=== PATIENT | male | born 1970 | race Caucasian/White ===

== ENCOUNTER 2017-08-05 23:39 | Inpatient (IN) | payer OTHER ==
[~2017-08-05] VITALS: Ht 180.3 cm; Wt 110.7 kg
[~2017-08-05 23:39] MED LIST: ADVAIR 100-501 EACH INH; ASPIR 8181 MG PO; CARDIZEM; CARDIZEM CD180 MG PO; CEFUROXIME500 MG PO; CLEOCIN HCL150 MG PO; LASIX 40 MG TAB40 M1 PO; LEVAQUIN 750 M750 MG PO; LISINOPRIL10 MG PO; LORTAB 5 MG/5001 TA1 PO; NORCO 5-325 TA1 EACH PO; PACERONE 200 M200 MG NG; PAXIL30 MG; PLAVIX 75 MG TA75 M1 PO; PREDNISONE10 MG PO; TOPROL XL50 MG PO; VENTOLIN HFA 1818 GM INH; XARELTO20 MG PO
[2017-08-05 23:44] VITALS: BP 116/81
[2017-08-06] VITALS (14 sets, daily range): BP systolic 96–138; BP diastolic 61–92
[2017-08-06 00:33] LABS: ABSOLUTE BASOPHILS 0.1 thou/uL (0.0-0.2); ABSOLUTE EOSINOPHILS 0.1 thou/uL (0.0-0.7); ABSOLUTE LYMPHOCYTES 2.6 thou/uL (0.8-5.3); ABSOLUTE MONOCYTES 1.1 thou/uL (0.0-1.2); ABSOLUTE NEUTROPHILS 9.2 thou/uL (1.6-8.1); BASOPHILS 0.9 %; EOSINOPHILS 0.8 %; HEMATOCRIT 39.2 % (42.0-52.0); HEMOGLOBIN 12.7 gm/dL (14.0-18.0); LYMPHOCYTES 19.8 %; MCH 28.2 pg (26.0-34.0); MCHC 32.4 g/dL (28.0-37.0); MCV 86.9 fL (80.0-100.0); MONOCYTES 8.6 %; NUCLEATED RBCS 0 /100WBC; PLATELET COUNT* 332 thou/uL (150-400); POLYS 69.9 %; RDW-CV 15.6 % (10.5-14.5); WBC 13.1 thou/uL (4.0-11.0)
[2017-08-06 00:47] LABS: ALBUMIN 3.1 g/dL (3.4-5.0); ALKALINE PHOSPHATASE 75 U/L (46-116); ANION GAP 10 mmol/L (7-16); BUN 35 mg/dL (7-18); CALCIUM 8.6 mg/dL (8.5-10.1); CHLORIDE 100 mmol/L (98-107); CO2 26 mmol/L (21-32); GLUCOSE 153 mg/dL (70-99); NT-PRO BRAIN NAT PEPTIDE 2238 pg/mL (<300); POTASSIUM 4.4 mmol/L (3.5-5.1); SGOT 31 U/L (15-37); SGPT 40 U/L (30-65); SODIUM 136 mmol/L (136-145); TOTAL BILIRUBIN 0.4 mg/dL (<0.1-1.0); TOTAL PROTEIN 7.3 g/dL (6.4-8.2); TROPONIN-I LEVEL <0.06 ng/mL (<0.06)
[2017-08-06 02:15] LABS: BE -0.3 mmol/L (-2 to +3); HCO3 24.1 mmol/L (22.0-26.0); PCO2 38.8 mmHg (35.0-45.0); PO2 79.7 mmHg (75.0-100.0); pH 7.411 (7.340-7.450)
--- NOTE | 2017-08-06 07:05 | NUR ---
Pt arrived from ED at 0340. Pt states he is feeling better than when he came in. VSS, on 2L O2. Later in shift, pt's HR up to 130's. Rhythm is atrial flutter. Pt has been sleeping, awakens to verbal stimuli. Answers questions appropriately and follows commands. HR 90s-100s, then up to 130s. VSS with elevated HR. Will continue to monitor.
--- NOTE | 2017-08-06 13:37 | EKG ---
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
--- NOTE | 2017-08-06 15:22 | CON ---
[address] [address] CONSULTATION Name: FRANCISCO LERNER Room: [address] IN .R.#: [id number] Admission: 08/06/17 Attend Phys: Ramona Gao Discharge: Date of : 68 Report #: [id number] THIS REPORT FOR: //name// CC: YARI physician/PCP Tenzin Urrutia DATE OF SERVICE: 08/06/2017 CHIEF COMPLAINT: Shortness of breath, atrial flutter. HISTORY OF PRESENT ILLNESS: The patient is a 47-year-old man with a history of known atrial arrhythmias, but had been out of his medications including anticoagulation and amiodarone. He presented with acute diastolic heart failure, pneumonia and atrial flutter with heart rates in the 120s. On IV Cardizem, his heart rate slows down, but he is still in atrial flutter. He had been feeling poorly for some time now several days. He denies neuro symptoms, slurred speech, numbness or weakness. He has not been really having any fevers or chills. He has no chest pain symptoms. His ECG did not show any acute ST segment abnormalities. His home medications that he had been taking included metoprolol XL 50 mg daily, Lasix 40 mg daily, baby aspirin, and albuterol. He had been off of amiodarone and Xarelto because of cost. PAST SURGICAL HISTORY: Includes back surgery and appendix surgery. SOCIAL HISTORY: He is a current smoker and he does drink 30 beers, he usually drinks a 6-pack per week. REVIEW OF SYSTEMS: GENERAL: No fevers. Positive chills. CARDIOVASCULAR: No chest pain. No palpitations. RESPIRATORY: Positive shortness of breath. Positive cough. GASTROINTESTINAL: No abdominal pain, nausea, vomiting, hematemesis, or melena. GENITOURINARY: No dysuria or hematuria. SKIN: No bruising. HEMATOLOGIC: No anemia or bleeding disorders. ENDOCRINE: He is not known to be a diabetic. PHYSICAL EXAMINATION: VITAL SIGNS: Blood pressure is 132/88, pulse is 120. GENERAL: The patient is alert, in no apparent distress. HEENT: Eyes, EOMs are intact. No facial asymmetry. NECK: Supple. No jug[place] [address] CONSULTATION Name: FRANCISCO LERNER [place] Room: [address]#: [id number] Admission: 08/06/17 Attend Phys: Ramona Gao Discharge: Date of : 68 Report #: [id number] CARDIOVASCULAR: Irregular. LUNGS: Diminished breath sounds bilaterally. ABDOMEN: Nontender. EXTREMITIES: There is no peripheral edema. SKIN: Warm and dry. PSYCHIATRIC: The patient has appropriate mood and affect. Electrocardiogram demonstrates atrial flutter with nonspecific ST-segment changes. LABORATORY DATA: Hemoglobin level is 12.7, white blood cell count is 13.1, and platelet count is 332,000. Sodium is 136, potassium is 4.4, chloride is 100, CO2 is 26, BUN 35, and creatinine is 2.0. Troponin I is 0.06. NT-proBNP is 2238. LDL is 122. IMPRESSION: 1. Respiratory insufficiency. This is likely a combination of diastolic heart failure and pneumonia. 2. Acute diastolic congestive heart failure. Continue with Lasix. 3. Atrial flutter. I am doubtful that he will convert to a sinus rhythm. He had been on amiodarone and on IV Cardizem, his heart rate is well controlled, but still remains in atrial flutter, so I recommended further evaluation with a transesophageal echocardiogram and cardioversion. Long-term, I would not want to use amiodarone in this particular patient. I would like to check a stress test and use flecainide or propafenone. 4. Tobacco abuse. Cessation is recommended. 5. Hypertension as above, this should be controlled with beta blockers. <ELECTRONICALLY SIGNED> By: Mani Fregoso MD, [facility] 08/06/17 1522 1000 [id number] Fregoso MD, [facility] /nt
--- NOTE | 2017-08-06 16:32 | TEE ---
[place] [address] TRANSESOPHAGEAL ECHOCARDIOGRAM Name: QUINSAJIJESSICAFRANCISCO L Room: [address] IN [facility]#: [id number] Admission: 08/06/17 Attend Phys: Tenzin Urrutia Discharge: Date of : 68 Date of Service: 08/06/17 1632 Report #: [id number] THIS REPORT FOR: //name// APPROVED REPORT Study performed: 08/06/2017 14:27:54 EXAM: Transesophageal Echocardiogram Patient Location: In-Patient Room #: [facility] Status: routine BSA: 2.38 HR: 134 bpm BP: 132/90 mmHg Rhythm: 3 Other Information Study Quality: Good Indications Atrial Fibrillation Procedure After obtaining informed consent, patient underwent transesophageal echo in the Bedside. Type of Sedation : General Anesthesia Sedation was administered by Yasmin Arellano. Sedation start time: 1430 Case end Time: 1436 Sedation was achieved intravenously with: Propofol () Transesophageal probe was inserted and advanced into esophagus without difficulty by Mani Fregoso MD, FACC. The JOSE was performed without complications. Synchronized Cardioversion acheived with 200 Joules after 1 attempt(s). Rhythm following Synchronized Cardioversion: Normal Sinus Rhythm Throughout the procedure, the blood pressure, pulse oximetry, cardiac rhythm, and rate were monitored. The patient tolerated the procedure without adverse effects. Recovery from conscious sedation was uneventful and vital signs were stable. Left Ventricle Left ventricle is mildly dilated. There is global hypokinesis of the left ventricle. There is normal left [place] [address] TRANSESOPHAGEAL ECHOCARDIOGRAM Name: FRANCISCO LERNER Room: [address]#: [id number] Admission: 08/06/17 Attend Phys: Tenzin Urrutia Discharge: Date of : 68 Date of Service: 08/06/17 1632 Report #: [id number] There is no ventricular septal defect visualized. Left ventricular systolic function is severely decreased. No left ventricle thrombus noted on this study. LVEF is 35-40% Right Ventricle Right ventricle is not well visualized. Atria Left atrium is dilated. No thrombus is visualized in the left atrium or appendage. The interatrial septum is intact with no evidence for an atrial septal defect. Right atrium is not well visualized. Aortic Valve The aortic valve is normal in structure. No aortic regurgitation is present. There is no aortic valvular stenosis. Mitral Valve The mitral valve is normal in structure. Mild mitral regurgitation. Tricuspid Valve Tricuspid valve is not well visualized. There is no tricuspid valve regurgitation noted. Pulmonic Valve Pulmonic valve is not well visualized. There is no pulmonic valvular regurgitation. Great Vessels Aortic root is not well visualized. Pericardium There is no pericardial effusion. <Conclusion> LVEF is 35-40% There is global hypokinesis of the left ventricle. Left atrium is dilated. No thrombus is visualized in the left atrium or appendage. <ELECTRONICALLY SIGNED> By: Mani Fregoso MD, FACC 08/06/17 [phone] Mani Fregoso MD, FACC /INF
[2017-08-06 17:12] LABS: GLYCOHEMOGLOBIN (HGB A1C) 6.5 % (4.8-5.6)
--- NOTE | 2017-08-06 19:07 | NUR ---
ASSUMED CARE OF PT AT 0730. PT CONTINUES TO BE A&o X4 CALM AND COOPERATIVE. PT VSS AND HAS BEEN TRACING A FIB ON THE MONITOR. PT HAS BEEN UP TO THE BATHROOM WITH STANDBY ASSISTANCE TODAY. O2 AT 2L VIA NC WITH SATS IN THE MID S. PT WENT TO THE [facility] [employer] TODAY FOR A JOSE AND CARDIOVERSION. PT HAS BEEN TRACING SR SINCE. PT CURRENTLY RESTING IN BED WITH HOB ELEVATED AND WATCHING TV.
[2017-08-07] VITALS (7 sets, daily range): BP systolic 102–154; BP diastolic 48–88
--- NOTE | 2017-08-07 03:41 | NUR ---
Pt sleeping much of shift, difficult to arouse at times. However, at 2310 pt walked out to nurses' station and asked about being discharged, stating he was "ready to go." Explained to patient that his physicians have not yet cleared him for discharge. Pt seemed to be confused as to time of day. Girlfriend stayed in pt's room on roll-away bed. VSS, and pt remains in SR since his cardioversion. Will continue to monitor.
[2017-08-07 05:20] LABS: HEMATOCRIT 39.4 % (42.0-52.0); MCH 28.2 pg (26.0-34.0); MCHC 32.9 g/dL (28.0-37.0); MCV 85.9 fL (80.0-100.0); MPV 8.9 fl. (7.2-11.1); RBC 4.59 mil/uL (4.50-6.00); RDW-CV 15.6 % (10.5-14.5); WBC 13.7 thou/uL (4.0-11.0)
[2017-08-07 06:19] LABS: CALCIUM 9.3 mg/dL (8.5-10.1); CREATININE 1.5 mg/dL (0.6-1.3); MAGNESIUM 2.2 mg/dL (1.8-2.4)
--- NOTE | 2017-08-07 11:10 | NUR ---
ASSUMED PT CARE AT 0730, FULL ASSESMENT DONE CHARTED. PT A/O X4, APPEARS FIDGETY AT TIMES. PTS O2 SAT 94% ON RA WHILE AWAKE BUT6 DROPPED TO 88% WHILE SLEEPING. PT PLACED BACK ON 2L O2 AND RECIEVED ORDER FOR OVERNIGHT PULSE OX STUDY. ALL OTHER VSS, SR ON THE MONITOR. LUNGS DIMINISHED. DENIES PAIN. FALL PRECAUTIONS IN PLACE, CALL LIGHT IN REACH, UP AD CRYSTAL IN ROOM. WILL CONTINUE WITH PLAN OF CARE.
--- NOTE | 2017-08-07 16:37 | NUR ---
CM SPOKE TO THE PATIENT TO DISCUSS HOME SITUATION, DISCHARGE PLANNING, AND TO INFORM OF THE ROLE OF CM. PATIENT ALERT, ORIENTED AND INDEPENDENT WITH ADL'S. PATIENT RESIDES AT HOME WITH PARENTS. 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 PATIENT USES 0 DME. PATIENT STATES THAT HE HAS NO INSURANCE OF PCP AND REQUEST ASSISTANCE WITH MEDICAID DES. CM INFORMED THE PATIENT ABOUT [facility] AND SENT A REFERRAL TO [facility]. CM ALSO PROVIDED THE PATIENT WITH A COMMUNITY RESOURCE LIST AND PRESCRIPTION ASSISTANCE CARD. CM WILL REMAIN AVAILABLE TO [facility] AND FOLLOW NEEDED.
[2017-08-08] VITALS: BP 121/70
--- NOTE | 2017-08-08 04:51 | NUR ---
ASSUMED CARE OF PT AT 1930, NURSING ASSESSMENT COMPLETED AT START OF SHIFT, PT VOICED NO CONCERNS, PT CONTINUES ON TELE MONITOR TRACING SINUS RHYTHM. HOURLY ROUNDING COMPLETED, PT ON CONTINUOUS PULSE OX THIS HS, HOURLY ROUNDING COMPLETED, CALL LIGHT WITHIN REACH.
[2017-08-08 06:30] VITALS: BP 129/82
[2017-08-08 06:38] LABS: HEMATOCRIT 39.7 % (42.0-52.0); HEMOGLOBIN 12.7 gm/dL (14.0-18.0); MCH 27.7 pg (26.0-34.0); MCHC 32.1 g/dL (28.0-37.0); MCV 86.5 fL (80.0-100.0); NUCLEATED RBCS 0 /100WBC; PLATELET COUNT* 332 thou/uL (150-400); RDW-CV 15.8 % (10.5-14.5); WBC 23.1 thou/uL (4.0-11.0)
[2017-08-08 06:47] LABS: CALCIUM 9.5 mg/dL (8.5-10.1); CREATININE 1.5 mg/dL (0.6-1.3); MAGNESIUM 2.1 mg/dL (1.8-2.4); POTASSIUM 4.5 mmol/L (3.5-5.1)
[2017-08-08 07:01] LABS: ABSOLUTE LYMPHOCYTES 1.2 thou/uL (0.8-5.3); ABSOLUTE MONOCYTES 0.2 thou/uL (0.0-1.2); ABSOLUTE NEUTROPHILS 21.7 thou/uL (1.6-8.1); PLATELET ESTIMATE ADEQUATE
[2017-08-08 08:30] VITALS: BP 144/67
[2017-08-08 12:10] VITALS: BP 120/57
--- NOTE | 2017-08-08 14:20 | CARD ---
[address] [address] CARDIAC CATH REPORT Name: YANNFRANCISCO Bereket Room: [address] IN [facility]#: [id number] Admission: 08/06/17 Attend Phys: Ramona Gao Discharge: Date of : 68 Report #: [id number] THIS REPORT FOR: //name// CC: YARI physician/PCP Tenzin Urrutia DATE OF SERVICE: 08/06/2017 PROCEDURE PERFORMED: Cardioversion. INDICATIONS: Atrial flutter, congestive heart failure. The patient is a 47-year-old man who present with respiratory insufficiency, infiltrates and congestive heart failure and atrial flutter with heart rates in the 130s and 140 beats per minute. This is not a new problem. CONSENT: The risks and benefits were described to patient in lay terms. The patient elects to proceed. Conscious sedation was administered via anesthesia. Please see their record for dosing. Briefly, the JOSE demonstrated no intracardiac thrombus, but moderate LV dysfunction. While the patient was still sedated, the patient was successfully cardioverted with 200 joules, biphasic from atrial flutter to sinus rhythm with heart rate in the 80s. IMPRESSION: 1. Atrial flutter. 2. Acute congestive heart failure. 3. Successful direct current cardioversion. <ELECTRONICALLY SIGNED> By: Mani Fregoso MD, [facility] 08/08/17 1420 1630 2130Mani Fregoso MD, FACC /nt
--- NOTE | 2017-08-08 15:29 | NUR ---
Following through dc. Pt was able to speak with Spring from [facility], Pt is potentially medicaid eligible. Spring faxed CM paperwork for Pt to complete, gave to Pt and will fax back once ready. Following.
[2017-08-08 16:00] VITALS: BP 119/63
--- NOTE | 2017-08-08 16:39 | NUR ---
I have reviewed the documentation by CHHAYA THOMAS from to 08/08/17 and I concur with it. ALPHONSE AGUILLON
--- NOTE | 2017-08-08 19:48 | NUR ---
ASSUMED PT CARE AT 0730, FULL ASSESMENT DONE CHARTED. PT A/O X4, ANXIOUS AT TIMES AND SLEEPS ON AND OFF THROUGH THE SHIFT. PT DENIES PAIN. SR ON THE MONITOR THIS AM, VSS, 2L O2 PRN. PT EDUCATED ON CARB CONTROLLED DIET, THE USE OF INSULIN AND CHECKING BLOOD SUGAR. PT NEEDS MORE EDUCATION IF GOING HOME ON INSULIN. PT UPSET THIS AFTERNOON AFTER ARGUMENT WITH GF. PTS HR ELEVATED IN 130'S, DR BORJA IN TO SEE PT, AWARE OF HR. PT GIVEN MEDS PER AUG, HR STILL ELEVATED, OBTAINED EKG, SHOWING AFLUTTER, CALLED CARDIOLOGY OFFICE AT APPROX 1830, NO CALL BACK RECIEVED, CALLED AGAIN AT APPROX 1940, SPOKE TO DR SHETH, RECIEVED ORDERS FOR CARDIZEM GTT. REPORT AND ORDERS RELAYED TO STEPHANIE LONG .
[2017-08-08 20:30] VITALS: BP 119/83
[2017-08-09 00:02] VITALS: BP 116/73
[2017-08-09 04:00] VITALS: BP 109/70
[2017-08-09 05:17] LABS: HEMATOCRIT 42.5 % (42.0-52.0); HEMOGLOBIN 13.6 gm/dL (14.0-18.0); MCH 27.6 pg (26.0-34.0); MCV 86.4 fL (80.0-100.0); MPV 8.7 fl. (7.2-11.1); RBC 4.92 mil/uL (4.50-6.00); RDW-CV 15.9 % (10.5-14.5); WBC 22.7 thou/uL (4.0-11.0)
[2017-08-09 05:37] LABS: ALBUMIN 2.9 g/dL (3.4-5.0); CALCIUM 8.9 mg/dL (8.5-10.1); CREATININE 1.4 mg/dL (0.6-1.3); POTASSIUM 3.9 mmol/L (3.5-5.1); TOTAL BILIRUBIN 0.2 mg/dL (<0.1-1.0); TOTAL PROTEIN 7.3 g/dL (6.4-8.2)
[2017-08-09 08:23] VITALS: BP 119/69
--- NOTE | 2017-08-09 12:00 | EKG ---
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 Machine Operator: GIULIA : 1970 Requested By: Robert Lerma Order Number: [id number] Cas MD: Robert Lerma Measurements Intervals [place] Rate: 131 P: SD: QRS: -28 QRSD: 91 T: 77 QT: 361 QTc: 533 Interpretive Statements Atrial flutter with predominant 2:1 AV block Borderline left axis deviation Abnormal R-wave progression, late transition Borderline ST depression, diffuse leads Prolonged QT interval Compared to ECG 08/05/2017 23:53:40 2:1 AV block now present Electronically Signed On 08-09-2017 12:00:38 HUMAN RESOURCES CONSULTANT by Robert Lerma [email or web address] <ELECTRONICALLY SIGNED> By: Robert Lerma MD, [facility] 08/09/17 1200 1823 1823 Robert Lerma MD, [facility] /EPI
--- NOTE | 2017-08-09 12:08 | NUR ---
ASSUMED RESPONSIBLITY OF PT THIS AM PT IS ALERT AND ORIENTED BUT VERY DROWSY SOMETIMES FORGETFUL GOES RIGHT BACK TO SLEEP AFTER ASKED A QUESTION PT HAS BEEN TRACKING AFIB/FLUTTER ON THE MONITOR TACHY IN THE 120S-130S CARDIZEM GTT STOPPED AND PO CARDIZEM STARTED AMIODARONE INCREASED WELL NO PLANS TO CARDIOVERT AGAIN PT IS ON 2L NC WHEN RESTING PLAN TO HAVE OUTPATIENT SLEEP STUDY CASE MANAGEMENT WORKING WITH PATIENT PT WITH RFA 20G SL NOW OFF CARDIZEM GTT ATIVAN JUST GIVEN D/T INCREASED ANXIETY ACCORDING TO PT PT DENIES ANY PAIN OR DISCOMFORT UP AD CRYSTAL STEADY CALL LIGHT IN REACH CALLS OUT APPROPRIATELY
--- NOTE | 2017-08-09 12:12 | EKG ---
[place] [address] ELECTROCARDIOGRAM REPORT Name: FRANCISCO LERNER Room: [address] ADM IN .R.#: [id number] Admission: 08/06/17 Attend Phys: Ramona Gao Discharge: Date of : 68 Report #: [id number] THIS REPORT FOR: //name// [facility] Test Date: 2017-08-09 Test Time: 06:18:21 Pat Name: FRANCISCO LERNER Department: Room: [address] Gender: M Associate Manager: JESUS : 1970 Requested By: Robert Lerma Order Number: [id number] Cas MD: Robert Lerma Measurements Intervals [place] Rate: 117 P: [place]: QRS: -24 QRSD: 87 T: 173 QT: 383 QTc: 535 Interpretive Statements Atrial fibrillation Borderline left axis deviation Borderline low voltage, extremity leads Abnormal R-wave progression, late transition Borderline repolarization abnormality Prolonged QT interval Electronically Signed On 08-09-2017 12:11:56 FRUIT THINNER MACHINE OPERATOR by Robert Lerma [email or web address] <ELECTRONICALLY SIGNED> By: Robert Lerma MD, [facility] 08/09/17 1211 7 7 Robert Lerma MD, [facility] /EPI
[2017-08-09 12:28] VITALS: BP 124/61
[2017-08-09 16:14] VITALS: BP 117/91
--- NOTE | 2017-08-09 18:20 | NUR ---
PT SLEPT THROUGHOUT THE DAY VERY DROWSY ASKED FOR ATIVAN X2 HR IS STARTING TO DECREASE BUT STILL A-FIB PT WITH VERY GOOD APPETITE WEARS O2 2L ON AND OFF WHEN RESTING CXR SHOWS IMPROVEMENT PLAN TO DC TOMORROW
[2017-08-09 20:20] VITALS: BP 96/73
[2017-08-10 00:03] VITALS: BP 114/66
[2017-08-10 04:00] VITALS: BP 110/70
--- NOTE | 2017-08-10 05:38 | NUR ---
A&O X4 COOPERITVE. PT REPORTS ANXIETY GIVEN MEDICATION WITH DECREASE ANXIETY NOTED. PT REPORTED INSOMNIA GIVEN MEDICATION WITH IMPROVED SLEEP NOTED. PT DENIES PAIN. PT ON 2L O2 PRN. PT IS STANDBY ASSIST. AFIB ON THE MONITOR. PT HAS X1 EPISODE OF HR >140. POSSIBLE D/C TODAY. VITALS WNL. FALL PRECAUTIONS IN PLACE. HOURLY ROUNDING FOR SAFETY.
[2017-08-10 06:13] LABS: CALCIUM 9.1 mg/dL (8.5-10.1); CREATININE 1.4 mg/dL (0.6-1.3); POTASSIUM 5.3 mmol/L (3.5-5.1)
[2017-08-10 08:00] VITALS: BP 123/77
--- NOTE | 2017-08-10 10:48 | NUR ---
ASSUMED RESPONSIBILITY OF PT THIS PT IS ALERT AND ORIENTED BUT VERY FORGETFUL AND DROWSY TRIES TO WAKE UP A BIT TO DO ASSESSMENT BUT PT GOES RIGHT BACK TO SLEEP PT CONVERTED TO NSR WITH PACS IN THE 70S PT COMPLAINED OF ANXIETY THIS AM RESTING PEACEFULLY IN BED USES O2 2L NC WHEN RESTING LABORED BREATHING NOTED TRACE EDEMA NOTED IN BILAT FEET RFA IV SL AND PATENT ACHS NEEDS INSULIN EVERY MEAL PT WITH VERY GOOD APPETITE EATS 100% EVERY MEAL PT IS UP AD CRYSTAL NO CONCERNS AT THIS TIME PLAN TO DC TODAY
[2017-08-10 12:00] VITALS: BP 116/75
[2017-08-10 16:00] VITALS: BP 121/79
--- NOTE | 2017-08-10 16:39 | EKG ---
[place] [address] ELECTROCARDIOGRAM REPORT Name: FRANCISCO LERNER Room: [address] ADM IN .R.#: [id number] Admission: 08/06/17 Attend Phys: Ramona Gao Discharge: Date of : 68 Report #: [id number] THIS REPORT FOR: //name// [facility] Test Date: 2017-08-10 Test Time: 08:04:23 Pat Name: FRANCISCO LERNER Department: Room: [address] Gender: M Rn Spine: TALHA : 1970 Requested By: Robert Lerma Order Number: [id number] Reading MD: Keven Fontenot Measurements Intervals [place] Rate: 66 P: 31 NC: 135 QRS: -29 QRSD: 93 T: 172 QT: 398 QTc: 417 Interpretive Statements Sinus rhythm Atrial premature complex Probable left atrial enlargement Borderline left axis deviation Probable anteroseptal infarct, old Nonspecific T abnormalities, lateral leads Compared to ECG 08/09/2017 06:18:21 Atrial premature complex(es) now present Myocardial infarct finding now present T-wave abnormality now present Atrial fibrillation no longer present Prolonged QT interval no longer present Electronically Signed On 08-10-2017 16:39:24 HYDRODYNAMICS PROFESSOR by Keven Fontenot [email or web address] <ELECTRONICALLY SIGNED> By: Kaylynn Fontenot MD, [facility] 08/10/17 1639 3 08 Kaylynn Fontenot MD, [facility] /EPI
--- NOTE | 2017-08-10 18:10 | NUR ---
PT IN BED T/O DAY DID GET UP AND AMBULATE AROUND THE FLOOR PT DENIES PAIN BUT DOES COMPLAIN OF ANXIETY AND IRRITABILITY ATIVAN GIVEN THE EVERY 4 HOURS PRN BASICALLY T/O DAY PLAN FOR DC TOMORROW DR RIVERA STARTED ON CELEXA AND CHANGED TO PO MEDS INSTEAD OF IV CALL LIGHT IN REACH UP AD CRYSTAL DID NOT FOLLOW FLUID RESTRICTION TODAY EXPLAINED THE IMPORTANCE OF THIS
[2017-08-10 20:20] VITALS: BP 134/74
[2017-08-11] VITALS: BP 113/60
[2017-08-11 04:13] VITALS: BP 134/77
--- NOTE | 2017-08-11 04:56 | NUR ---
A&O X4 CALM COOPERITVE. PT RESTING MOST OF SHIFT. MED COMPLIANT. 1L O2. NO FLUIDS. NSR ON THE MONITOR. VITALS WNL. HOURLY ROUNDING FOR SAFETY.
[2017-08-11 08:00] VITALS: BP 123/90
--- NOTE | 2017-08-11 10:26 | NUR ---
0733 ASSSUMED CARE OF PATIENT. SEE ASSESSMENT CHARTING. LONG QT INTERVAL. PT [PLAN TO GO HOME
[2017-08-11 12:00] VITALS: BP 102/56
[2017-08-11 12:29] VITALS: BP 112/76
--- NOTE | 2017-08-11 12:43 | EKG ---
[place] [address] ELECTROCARDIOGRAM REPORT Name: FRANCISCO LERNER Room: [address] ADM IN .R.#: [id number] Admission: 08/06/17 Attend Phys: Ramona Gao Discharge: Date of : 68 Report #: [id number] THIS REPORT FOR: //name// [facility] Test Date: 2017-08-11 Test Time: 08:06:12 Pat Name: FRANCISCO KORYJESSICA Department: Room: [address] Gender: M Station Cook: TALHA : 1970 Requested By: Kaylynn Fontenot Order Number: [id number] Reading MD: Keven Fontenot Measurements Intervals [place] Rate: 65 P: 30 FL: 153 QRS: -28 QRSD: 88 T: 18 QT: 561 QTc: 584 Interpretive Statements Sinus rhythm Probable left atrial enlargement Borderline left axis deviation Borderline T abnormalities, inferior leads Prolonged QT interval Compared to ECG 08/10/2017 08:04:23 Prolonged QT interval now present Atrial premature complex(es) no longer present Myocardial infarct finding no longer present T-wave abnormality still present Electronically Signed On 08-11-2017 12:43:04 MOLD BUILDER by Keven Fontenot [email or web address] <ELECTRONICALLY SIGNED> By: Kaylynn Fontenot MD, [facility] 08/11/17 1243 5 08 Kaylynn Fontenot MD, [facility] /EPI
[2017-08-11] MEDS ORDERED: ELIQUIS5 MG PO (13:24)
[2017-08-11] MEDS ORDERED: LEVAQUIN 500 M500 M2 PO (13:24)
--- NOTE | 2017-08-11 14:08 | NUR ---
DR RIVERA TO SEE PATIENT AND PT WILL DISCHARGE. CARDIOLOGY HAS SIGNED OFF. SECURITY NOTIFIED TO BRING VALUABLES
[2017-08-11] MEDS ORDERED: PACERONE 200 M200 M1 PO (14:17)
[2017-08-11] MEDS ORDERED: DUONEB 2.5-0.5 M3 ML INH (14:17)
--- NOTE | 2017-08-11 15:33 | NUR ---
TELE PACK REMOVED. IV DISCONTINUED. PT DISCHARGED AMBULATORY
== END 2017-08-11 15:30 | disposition home or self-care (01) | DRG 871 ==
LOC: M.ERS 23:39 → M.2W 08-06 02:52 → M.TBA-ER 08-06 02:52 → M.2W 08-06 03:54
PROVIDERS: Internal Medicine; Internal Medicine Cardiovascular Disease; Personal Emergency Response Attendant; ADMIT Internal Medicine
PROC: 5A2204Z Restoration of Cardiac Rhythm, Single (ICD-10-PCS; principal; 2017-08-06)
DX: A41.9 Sepsis, unspecified organism (principal); J18.1 Lobar pneumonia, unspecified organism; N17.0 Acute kidney failure with tubular necrosis; I50.43 Acute on chronic combined systolic (congestive) and diastolic (congestive) heart failure; I48.92 Unspecified atrial flutter; J44.1 Chronic obstructive pulmonary disease with (acute) exacerbation; J44.0 Chronic obstructive pulmonary disease with (acute) lower respiratory infection; I13.0 Hypertensive heart and chronic kidney disease with heart failure and stage 1 through stage 4 chronic kidney disease, or unspecified chronic kidney disease; E11.22 Type 2 diabetes mellitus with diabetic chronic kidney disease; F17.210 Nicotine dependence, cigarettes, uncomplicated; Z90.49 Acquired absence of other specified parts of digestive tract; I48.91 Unspecified atrial fibrillation; Z79.899 Other long term (current) drug therapy

== ENCOUNTER 2017-08-28 11:00 | Inpatient (IN) | payer OTHER ==
[~2017-08-28] VITALS: Ht 180.3 cm; Wt 116.0 kg
[~2017-08-28 11:00] MED LIST changes: +DUONEB 2.5-0.5 M3 ML INH; +ELIQUIS5 MG PO; +LEVAQUIN 500 M500 M2 PO; +PACERONE 200 M200 M1 PO
[2017-08-28 11:05] VITALS: BP 129/69
[2017-08-28 11:29] LABS: ABSOLUTE BASOPHILS 0.1 thou/uL (0.0-0.2); ABSOLUTE EOSINOPHILS 0.1 thou/uL (0.0-0.7); ABSOLUTE MONOCYTES 0.8 thou/uL (0.0-1.2); ABSOLUTE NEUTROPHILS 7.9 thou/uL (1.6-8.1); BASOPHILS 1.2 %; HEMATOCRIT 41.7 % (42.0-52.0); HEMOGLOBIN 13.6 gm/dL (14.0-18.0); LYMPHOCYTES 17.9 %; MCH 28.5 pg (26.0-34.0); MCHC 32.7 g/dL (28.0-37.0); MCV 87.2 fL (80.0-100.0); MONOCYTES 7.4 %; MPV 8.8 fl. (7.2-11.1); NUCLEATED RBCS 0 /100WBC; PLATELET COUNT* 301 thou/uL (150-400); POLYS 72.5 %; RBC 4.79 mil/uL (4.50-6.00); RDW-CV 15.8 % (10.5-14.5); WBC 10.9 thou/uL (4.0-11.0)
[2017-08-28 11:33] LABS: ANION GAP 7 mmol/L (7-16); BUN 20 mg/dL (7-18); CALCIUM 8.6 mg/dL (8.5-10.1); CHLORIDE 97 mmol/L (98-107); CO2 30 mmol/L (21-32); CREATININE 1.7 mg/dL (0.6-1.3); GLUCOSE 263 mg/dL (70-99); INR 1.1; POTASSIUM 3.8 mmol/L (3.5-5.1); PROTIME 10.7 Seconds (9.20-11.50); SODIUM 134 mmol/L (136-145)
[2017-08-28 11:43] LABS: ALBUMIN 3.2 g/dL (3.4-5.0); ALKALINE PHOSPHATASE 89 U/L (46-116); LIPASE 113 U/L (73-393); MAGNESIUM 1.7 mg/dL (1.8-2.4); NT-PRO BRAIN NAT PEPTIDE 1016 pg/mL (<300); SGOT 25 U/L (15-37); SGPT 43 U/L (30-65); TOTAL BILIRUBIN 0.4 mg/dL (<0.1-1.0); TOTAL PROTEIN 7.5 g/dL (6.4-8.2); TROPONIN-I LEVEL <0.06 ng/mL (<0.06)
[2017-08-28 15:32] VITALS: BP 117/69
[2017-08-28 15:39] VITALS: BP 122/82
--- NOTE | 2017-08-28 18:23 | NUR ---
PT ADMITTED TO ROOM 230 VIA CART FROM ED AT APPROXIMATELY 1545 WITH ATRIAL FLUTTER WITH SLOW VENTRICULAR RESPONSE AND DYSPNEA. REPORT RECEIVED FROM RAUL ED RN. PT ORIENTED TO ROOM AND CALL LIGHT. ADMISSION ASSESSMENT AND HISTORY COMPLETED. REFER TO CHARTING. SEPSIS SCREENING COMPLETE-SCREENED NEGATIVE. HOME MEDICATIONS RECONCILED. PHARMACY ENTERED. PT A&0X4. PT VERY ANXIOUS AND SHORT OF BREATH. TACHYPNEA NOTED. COARSE CRACKLES AND WHEEZES NOTED. ORDERS RECEIVED FOR PRN ANXIETY MEDICATION TO HELP PT RELAX AND SLOW BREATHING. PT ON 4L NC SAT 96%. PT HAS NON PRODUCTIVE COUGH. PT TRACING AFLUTTER ON THE MANAGER CORPORATE STRATEGY. RATE IN THE 50'S. EDEMA NOTED TO BILATERAL LE'S. PT UP AD CRYSTAL IN ROOM. VOIDS PER URINAL. URINALYSIS SENT DOWN. CARDIOLOGY CONSULT IN PLACE. PT GIVEN 80 MG IVP LASIX. REFER TO EMAR. PT REPOSITIONS SELF. HOURLY ROUNDING OBSERVED. BED IN LOW POSITION. CALL LIGHT WITHIN REACH. WILL CONTINUE PLAN OF CARE.
[2017-08-28 18:27] LABS: AMP/METHAMP POSITIVE (Negative); BARBITURATES Negative (Negative); BENZODIAZEPINES Negative (Negative); COCAINE Negative (Negative); METHADONE Negative (Negative); OPIATES Negative (Negative); PCP Negative (Negative); THC POSITIVE (Negative)
[2017-08-28 20:00] VITALS: BP 140/93
[2017-08-29] VITALS: BP 146/95
--- NOTE | 2017-08-29 03:13 | NUR ---
ASSUMED PT CARE AT 1930, PT IS TRACING AFIB/FLUTTER ON THE MONITOR, WITH OCCASIONAL P WAVES, IT APPEARS PT IS TRYING TO SELF CONVERT TO NSR. PT IS ON 4L NC SATTING MID TO HIGH 90'S. PT NEEDS REMINDING TO KEEP O2 ON AND KEEP BREATHIGN IN THROUGH HIS NOSE. PT'S RESP RATE HAS BEEN ELEVATED THOURGHOUT THE SHIFT, PT REQUESTED A SLEEPING MEDICATION, PRN MEDICATION GIVEN WITH NO RELIEF. BED IN LOW POSITION, CALL LIGHT IN REACH, BED ALARM ON D/T SLEEPING MEDICATION, HOURLY ROUNDING COMPLETED FOR PT SAFETY.
[2017-08-29 04:00] VITALS: BP 112/73
[2017-08-29 08:00] VITALS: BP 118/79
[2017-08-29 10:01] LABS: HEMATOCRIT 37.8 % (42.0-52.0); HEMOGLOBIN 12.4 gm/dL (14.0-18.0); MCH 28.3 pg (26.0-34.0); MCHC 32.8 g/dL (28.0-37.0); MCV 86.1 fL (80.0-100.0); MPV 9.2 fl. (7.2-11.1); RBC 4.39 mil/uL (4.50-6.00); RDW-CV 15.5 % (10.5-14.5); WBC 13.4 thou/uL (4.0-11.0)
[2017-08-29 10:44] LABS: CALCIUM 8.6 mg/dL (8.5-10.1); CREATININE 1.3 mg/dL (0.6-1.3); POTASSIUM 3.8 mmol/L (3.5-5.1)
[2017-08-29 11:36] VITALS: BP 107/68
--- NOTE | 2017-08-29 12:43 | EKG ---
[place] [address] ELECTROCARDIOGRAM REPORT Name: FRANCISCO LERNER Room: [address] ADM IN R.#: [id number] Admission: 08/28/17 Attend Phys: Aguilar Pham Discharge: Date of : 68 Report #: [id number] THIS REPORT FOR: //name// [facility] ED Test Date: 2017-08-28 Test Time: 11:05:18 Pat Name: FRANCISCO LERNER Department: Room: [facility] Gender: M Ambulance Driver: UNKNOWN : 1970 Requested By: Beni Marques Order Number: [id number] MD: Jeremy Carr Measurements Intervals [place] Rate: 55 P: 0 IA: 88 QRS: 60 QRSD: 240 T: -40 QT: 485 QTc: 464 Interpretive Statements Atrial flutter Minimal ST depression, anterolateral leads Compared to ECG 08/11/2017 08:06:12 ST (T wave) deviation now present T-wave abnormality no longer present Prolonged QT interval no longer present Electronically Signed On 08-29-2017 12:43:36 CARTRIDGE GAUGER by Jeremy Carr [email or web address] <ELECTRONICALLY SIGNED> By: Jeremy Carr MD, [facility] 08/29/17 1243 1105 1105 Jeremy Carr MD, [facility] /EPI
--- NOTE | 2017-08-29 15:08 | NUR ---
ATTEMPTED TO SEE PT X3 TODAY, SLEEPING. WILL TRY TOMORROW. PT WAS HERE LAST MONTH, LIVES WITH PARENTS AND HAS APPLIED FOR MEDICAID. DID NOTE +UDS.
[2017-08-29 15:55] VITALS: BP 148/89
[2017-08-29 20:00] VITALS: BP 129/81
[2017-08-30 00:01] VITALS: BP 152/81
[2017-08-30 04:00] VITALS: BP 126/72
--- NOTE | 2017-08-30 04:27 | NUR ---
this nurse assumes care of pt 08/29/17 at 1930, pt is alert, oriented x4, large amount of family members present, pt appears anxious and complains of coughing and spitting up, denies nausea, pt complains of continued SABILLON and abd pain and receives PO pain medication, prior to sleep pt becomes agitated and argumentative with his significant other, pt is heard yelling profanities throughout the unit, security called, visitor leaves and pt then calms down after receiving HS meds, pts respirationsare uneven with snoring noted throughout the night, supplemental o2 via NC at 4L provided, pts lung sounds are diminished with expiratory wheezes ascultated at times, pt continues to have 2+ generalized edema, pt tracing Afib on cardiac monitoring, pt awake at this time asking for soda, educated on limiting fluids, pt is progressing towards goals
[2017-08-30 08:20] VITALS: BP 139/108
--- NOTE | 2017-08-30 10:51 | NUR ---
RECIEVED REPORT FROM [facility] AND ASSUMED CARE OF PT AT 0730. PT A/O X4, BP ELEVATED AT 139/108. TRACING AFIB ON MONITOR. LUNGS DIMINISHED WITH WHEEZES.ON 4L O2 SAT AT 93%. LAST BM 2 DAYS AGO WITH ACTIVE BOWEL SOUNDS.IV SALINE LOCKED. PT DENIES PAIN AT TIME OF ASSESSMENT. UP SBA WITH BRP. GOALS DISCUSSED WITH PT TO BE NPO WHILE WAITING TO BE SEEN BY CARDIOLOGY. PT UNDERSTANDS AND OK WITH PLAN. CALL LIGHT WITH IN REACH. PT RESTING IN BED. SONIA SLADE SAW PT AND DECIDED THAT PT CAN RESUME DIET AND THEY WILL NOT PREFORM CARDIOVERSION.
[2017-08-30 11:40] VITALS: BP 146/110
[2017-08-30 15:11] LABS: AMIODARONE 2.2 ug/mL (1.0-2.5); DESETHYLAMIODARONE 0.7 ug/mL (1.0-2.5)
--- NOTE | 2017-08-30 15:29 | NUR ---
ATTEMPTED X2 TO MEET WITH PT. WAS SOUND ASLEEP. DISCUSSED WITH NURSE, STATED HE HAS BEEN SLEEPING QUITE A BIT TODAY
[2017-08-30 16:10] VITALS: BP 143/77
--- NOTE | 2017-08-30 18:57 | NUR ---
PT HAS BEEN SLEEPING MOST OF SHIFT. WAKING UP FOR MEALS AND TO VISIT WITH FAMILY. PT WAS STARTED ON PO CARDIZEM. PT C/O HEADACHE, CALL PUT OUT TO [facility] TO GET ORDER FOR PAIN MEDICATION.FAMILY HAS SOME QUESTIONS FOR CASE MANAGEMENT FOR IN AM. PT RESTING IN ROOM WITH CALL LIGHT IN REACH. FAMILY AT BEDSIDE VISITING QUIETLY. HOURLY ROUNDING COMPLETED FOR PT SAFETY.
[2017-08-30 20:00] VITALS: BP 115/70
[2017-08-31] VITALS (7 sets, daily range): BP systolic 102–128; BP diastolic 48–71
--- NOTE | 2017-08-31 03:34 | NUR ---
PT SLEEPING THROUGHOUT SHIFT. AROUSES TO VOICE. WAKES UP AND AMBULATES TO BR. TELEMETRY SHOWS AFIB. O2 AT 4 LITERS NC. PT SNORES LOUDLY. WILL CONTINUE TO MONITOR.
[2017-08-31 04:48] LABS: HEMATOCRIT 40.7 % (42.0-52.0); HEMOGLOBIN 13.7 gm/dL (14.0-18.0); MCH 28.5 pg (26.0-34.0); MCHC 33.5 g/dL (28.0-37.0); MCV 84.8 fL (80.0-100.0); MPV 8.8 fl. (7.2-11.1); RBC 4.8 mil/uL (4.50-6.00); RDW-CV 15.2 % (10.5-14.5)
[2017-08-31 05:19] LABS: ALBUMIN 2.7 g/dL (3.4-5.0); CALCIUM 8.7 mg/dL (8.5-10.1); CREATININE 1.2 mg/dL (0.6-1.3); MAGNESIUM 2.1 mg/dL (1.8-2.4); POTASSIUM 3.9 mmol/L (3.5-5.1); TOTAL BILIRUBIN 0.6 mg/dL (<0.1-1.0); TOTAL PROTEIN 6.4 g/dL (6.4-8.2)
--- NOTE | 2017-08-31 07:45 | NUR ---
ASSUMED CARE OF PT ASSESSED AND DOCUMENTED. PT ON CARDIAC MONITER TRACING A-FIB HR 88.VSS WNL. PT IS AFEBRILE. HE CONT ON 4L OF 02 AND HAS NOTED WHEEZING. PT IS A&O WITH NO C/O PAIN. BED IS IN LOW POSITION CALL LIGHT IS IN REACH.WM.
--- NOTE | 2017-08-31 16:52 | NUR ---
PT HAS SLEPT OR WATCHED TV THIS SHIFT. HE HAS SPOKEN ON HIS TELEPHONE AND HAD A FEW VISITORS. EDUCATION GIVEN ON DEMAND. HOURLY ROUNDING COMPLETE.
[2017-09-01] VITALS: BP 115/88
--- NOTE | 2017-09-01 01:00 | NUR ---
PT DROWSEY ORIENTED X 4. TELEMETRT SHOWS AFIB. UP AD CRYSTAL IN ROOM. O2 AT 4 LITERS NC. WILL CONTINUE TO MONITOR.
[2017-09-01 04:27] VITALS: BP 104/51
[2017-09-01 05:13] LABS: HEMATOCRIT 43.2 % (42.0-52.0); HEMOGLOBIN 14.6 gm/dL (14.0-18.0); MCH 28.6 pg (26.0-34.0); MCHC 33.8 g/dL (28.0-37.0); MCV 84.7 fL (80.0-100.0); MPV 8.9 fl. (7.2-11.1); RBC 5.1 mil/uL (4.50-6.00); RDW-CV 15.4 % (10.5-14.5); WBC 8.2 thou/uL (4.0-11.0)
[2017-09-01 05:24] LABS: ALBUMIN 2.6 g/dL (3.4-5.0); CALCIUM 9.1 mg/dL (8.5-10.1); CREATININE 1.3 mg/dL (0.6-1.3); MAGNESIUM 2.3 mg/dL (1.8-2.4); POTASSIUM 3.8 mmol/L (3.5-5.1); TOTAL BILIRUBIN 0.4 mg/dL (<0.1-1.0); TOTAL PROTEIN 7.2 g/dL (6.4-8.2)
[2017-09-01 08:00] VITALS: BP 126/92
[2017-09-01 12:00] VITALS: BP 118/61
[2017-09-01 16:00] VITALS: BP 120/52
[2017-09-01 21:00] VITALS: BP 113/71
[2017-09-02] VITALS: BP 110/46
--- NOTE | 2017-09-02 01:59 | NUR ---
PT A/OX4, RA, A-FLUTTER ON THE MONITOR, NO C/O SOA/PAIN, UP SBA, VSS, MEDS/ASSESSMENT PER CHARTING, FALL PRECAUTIONS IN PLACE WITH BED IN LOW LOCKED POSITION AND CALL LIGHT IN REACH, HOURLY ROUNDING IN PLACE, SON AT BEDSIDE, WILL CONT TO MONITOR.
[2017-09-02 03:50] VITALS: BP 101/44
--- NOTE | 2017-09-02 10:59 | NUR ---
MET WITH PT AND HIS FATHER TO DISCUSS HOME SITUATION/DC PLANNING. PT STATES HE LIVES WITH HIS SON IN [facility] NOW. HE IS INDEPENDENT AND USES NO EQUIPMENT. HE STATES HE HAS FILED FOR MEDICAID AND DISABILITY AND WAITING TO HEAR ON BOTH, NEITHER ARE ACTIVE AT THIS TIME. DISCUSSED POSSIBLE NEED FOR O2 AND WITHOUT INSURANCE COVERAGE, WOULD NEED A CREDIT CARD TO ARRANGE. PT STATED HE 'DIDN'T HAVE ONE.' PT STATES HE HAS BEEN ABLE TO GET HIS SCRIPTS FILLED. GAVE COMMUNITY RESOURCE INFO, FIND A PHYSICIAN AND DISCUSSED F/U AT [facility] OR [facility] [place]. ALSO DRUG ASSIST AND DISABILITY ASSIST.
[2017-09-02 12:00] VITALS: BP 125/85
[2017-09-02] MEDS ORDERED: LANOXIN 0.25M0.25 M1 PO (12:53)
[2017-09-02] MEDS ORDERED: COZAAR 25 MG TA25 M1 PO (12:54)
== END 2017-09-02 16:30 | disposition home or self-care (01) | DRG 291 ==
LOC: M.ERS 11:00 → M.2W 12:23 → M.TBA-ER 12:23 → M.2W 15:46
PROVIDERS: Emergency Medicine Emergency Medical Services; Family Medicine; ADMIT Internal Medicine
DX: I13.0 Hypertensive heart and chronic kidney disease with heart failure and stage 1 through stage 4 chronic kidney disease, or unspecified chronic kidney disease (principal); J96.01 Acute respiratory failure with hypoxia; I50.43 Acute on chronic combined systolic (congestive) and diastolic (congestive) heart failure; I48.92 Unspecified atrial flutter; I48.91 Unspecified atrial fibrillation; N17.9 Acute kidney failure, unspecified; G47.30 Sleep apnea, unspecified; I42.9 Cardiomyopathy, unspecified; N18.3 Chronic kidney disease, stage 3 (moderate); F17.200 Nicotine dependence, unspecified, uncomplicated; F19.10 Other psychoactive substance abuse, uncomplicated; J44.9 Chronic obstructive pulmonary disease, unspecified; Z83.6 Family history of other diseases of the respiratory system; Z79.01 Long term (current) use of anticoagulants; Z79.899 Other long term (current) drug therapy

== ENCOUNTER 2018-01-16 12:49 | Inpatient (IN) | payer OTHER ==
[~2018-01-16] VITALS: Ht 180.3 cm; Wt 74.5 kg
[~2018-01-16 12:49] MED LIST changes: +COZAAR 25 MG TA25 M1 PO; +LANOXIN 0.25M0.25 M1 PO
[2018-01-16 13:01] VITALS: BP 181/111
[2018-01-16 13:25] LABS: ABSOLUTE BASOPHILS 0.1 thou/uL (0.0-0.2); ABSOLUTE EOSINOPHILS 0.2 thou/uL (0.0-0.7); ABSOLUTE LYMPHOCYTES 1.5 thou/uL (0.8-5.3); ABSOLUTE MONOCYTES 0.8 thou/uL (0.0-1.2); ABSOLUTE NEUTROPHILS 7.4 thou/uL (1.6-8.1); BASOPHILS 1.2 %; HEMOGLOBIN 13.9 gm/dL (14.0-18.0); LYMPHOCYTES 14.8 %; MCH 28.4 pg (26.0-34.0); MCV 85.9 fL (80.0-100.0); MONOCYTES 7.6 %; MPV 8.9 fl. (7.2-11.1); NUCLEATED RBCS 0 /100WBC; PLATELET COUNT* 309 thou/uL (150-400); POLYS 74.4 %; RBC 4.89 mil/uL (4.50-6.00); RDW-CV 16.1 % (10.5-14.5)
[2018-01-16 13:38] LABS: ANION GAP 3 mmol/L (7-16); APTT 25.7 Seconds (25.0-31.3); BUN 16 mg/dL (7-18); CALCIUM 8.2 mg/dL (8.5-10.1); CHLORIDE 102 mmol/L (98-107); CO2 30 mmol/L (21-32); CREATININE 1.3 mg/dL (0.6-1.3); GLUCOSE 149 mg/dL (70-99); POTASSIUM 3.6 mmol/L (3.5-5.1); SODIUM 135 mmol/L (136-145)
[2018-01-16 13:39] LABS: BE 4.4 mmol/L (-2 to +3); HCO3 29.3 mmol/L (22.0-26.0); PCO2 44.8 mmHg (35.0-45.0); PO2 65.3 mmHg (75.0-100.0); pH 7.434 (7.340-7.450)
[2018-01-16 13:49] LABS: ALBUMIN 3.1 g/dL (3.4-5.0); ALKALINE PHOSPHATASE 105 U/L (46-116); NT-PRO BRAIN NAT PEPTIDE 726 pg/mL (<300); SGOT 34 U/L (15-37); SGPT 60 U/L (30-65); TOTAL BILIRUBIN 0.3 mg/dL (<0.1-1.0); TOTAL PROTEIN 7.6 g/dL (6.4-8.2); TROPONIN-I LEVEL <0.06 ng/mL (<0.06)
[2018-01-16 16:15] VITALS: BP 125/79
[2018-01-16 16:35] VITALS: BP 140/83
--- NOTE | 2018-01-16 16:42 | 2DMMODE ---
[place] [address] 2 D/M-MODE ECHOCARDIOGRAM Name: FRANCISCO LERNER Room: [address] IN [facility]#: [id number] Admission: 01/16/18 Attend Phys: Tenzin Urrutia Discharge: Date of : 68 Date of Service: 01/16/18 1641 Report #: [id number] THIS REPORT FOR: //name// APPROVED REPORT Study performed: 01/16/2018 15:48:57 EXAM: Comprehensive 2D, Doppler, and color-flow Echocardiogram Patient Location: In-Patient Room #: er Status: routine BSA: 2.34 HR: 87 bpm BP: 181/111 mmHg Rhythm: NSR Other Information Study Quality: Good Indications Cardiomyopathy 2D Dimensions LVEF(%): 35.97 (>50%) IVSd: 13.20 (7-11mm) LVOT Diam: 21.49 (18-24mm) LVDd: 50.57 mm PWd: 11.08 (7-11mm) Ascending Ao: 37.26 (22-36mm) LVDs: 41.81 (25-40mm) Aortic Root: 36.47 mm Ozuna's LVEF: 35.97 % Volumes Left Atrial Volume (Systole) LA ESV Index: 35.30 mL/m2 Aortic Valve AoV Peak Jerzy.: 1.31 m/s AO Peak Gr.: 6.84 mmHg LVOT Max P.74 mmHg AO Mean Gr.: 3.75 mmHg LVOT Mean P.94 mmHg LVOT Max V: 1.20 m/s AO V2 VTI: 23.71 cm LVOT Mean V: 0.78 m/s MAGALY (VTI): 3.11 cm2 LVOT V1 VTI: 20.34 cm Mitral Valve MV Decel. Time: 112.91 [place] [address] 2 D/M-MODE ECHOCARDIOGRAM Name: FRANCISCO LERNER Room: [address] IN ..#: [id number] Admission: 01/16/18 Attend Phys: Tenzin Urrutia Discharge: Date of : 68 Date of Service: 01/16/18 1641 Report #: [id number] MV E Max Jerzy.: 1.09 m/s MV PHT: 32.74 ms MVA (PHT): 6.72 cm2 TDI E/Lateral E': 9.08 E/Medial E': 13.63 Medial E' Jerzy.: 0.08 m/s Lateral E' Jerzy.: 0.12 m/s Pulmonary Valve PV Peak Jerzy.: 0.91 m/s PV Peak Gr.: 3.29 mmHg Left Ventricle The left ventricle is normal size. There is global hypokinesis of the left ventricle. Mild concentric left ventricular hypertrophy. Left ventricular systolic function is mildly decreased. LVEF is 35-40%. This study is not technically sufficient to allow evaluation of the LV diastolic function due to atrial fibrillation. Right Ventricle Right ventricle is dilated. The right ventricular systolic function is normal. Atria Left atrium is borderline dilated. Right atrium is dilated. Aortic Valve The aortic valve is normal in structure. No aortic regurgitation is present. There is no aortic valvular stenosis. Mitral Valve The mitral valve is normal in structure. Trace mitral regurgitation. No evidence of mitral valve stenosis. Tricuspid Valve The tricuspid valve is normal in structure. Unable to assess PA pressure. Trace tricuspid regurgitation. Pulmonic Valve The pulmonary valve is normal in structure. There is no pulmonic valvular regurgitation. Great Vessels The aortic root is normal in size. IVC is normal in size and collapses with >50% [place] [address] 2 D/M-MODE ECHOCARDIOGRAM Name: FRANCISCO LERNER Room: [address] IN [facility].#: [id number] Admission: 01/16/18 Attend Phys: Tenzin Urrutia Discharge: Date of : 68 Date of Service: 01/16/18 1641 Report #: [id number] Pericardium There is no pericardial effusion. <Conclusion> The left ventricle is normal size. Mild concentric left ventricular hypertrophy. LVEF is 35-40%. There is global hypokinesis of the left ventricle. Left atrium is borderline dilated. Right atrium is dilated. No aortic regurgitation is present. There is no aortic valvular stenosis. No evidence of mitral valve stenosis. Trace mitral regurgitation. <ELECTRONICALLY SIGNED> By: Mani Fregoso MD, FACC 01/16/181640 40 40 Mani Fregoso MD, FACC /INF
--- NOTE | 2018-01-16 19:42 | NUR ---
PT ARRIVED TO ROOM 213 AT APPROX 1630. PT ORIENTED TO ROOM AND STAFF. ADMISSION HX AND ASSESMENT DONE CHARTED. PT A/O X4, C/O SABILLON, TYLENOL GIVEN. REVIEWED HOME MEDS WITH PT. VSS, AFLUTTER ON MONITOR. PT UP AD CRYSTAL. REPORT GIVEN TO MARCELA BROWN.
[2018-01-16 23:45] VITALS: BP 157/88
[2018-01-17 04:00] VITALS: BP 118/68
--- NOTE | 2018-01-17 05:19 | NUR ---
AAOX4, RESP REG AND UNLABORED SKIN W/D. TELEMETRY PACK ITNACT WITH ALARMS SET. PT STATES HIS SWELLING HAS ALREADY IMPROVED. PT DENIES PAIN AND SOB AT THIS TIME. VSS AND NO ACUTE CHANGES DURING SHIFT. PT RESTED WELL. WILL CONTINUWE TO MONITOR
[2018-01-17 08:00] VITALS: BP 134/80
--- NOTE | 2018-01-17 10:05 | NUR ---
INITIAL ASSESSMENT: Pt evaluated for d/c planning needs. Reviewed chart. Pt was recently hospitalized in August 2017. Pt was given financial resource information. Pt lives in house with son and was independent with ADL's prior to admission. Pt uses no DME. Pt plans on returning home on d/c from hospital. No d/c needs indicated.
--- NOTE | 2018-01-17 10:46 | EKG ---
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: Quintin ORR : 1970 Requested By: Meir Nye Order Number: [id number] MD: Robert Lerma Measurements Intervals [place] Rate: 88 P: ID: QRS: -49 QRSD: 96 T: 242 QT: 425 QTc: 515 Interpretive Statements Atrial flutter Abnormal R-wave progression, late transition Compared to ECG 08/28/2017 11:05:18 rate increased Electronically Signed On 01-17-2018 10:46:28 CDT by Robert Lerma [email or web address] <ELECTRONICALLY SIGNED> By: Robert Lerma MD, [facility] 01/17/18 1046 1416 1416 Robert Lerma MD, [facility] /EPI
[2018-01-17 11:45] VITALS: BP 140/90
[2018-01-17 15:48] VITALS: BP 135/78
--- NOTE | 2018-01-17 18:16 | NUR ---
SHIFT NOTE - PT UP AD CRYSTAL TODAY. IV SL. POSSIBLE DC TODAY BUT PT REQUEST TO STAY ANOTHER DAY. LASIX CHANGED TO PO. CONTAINER COORDINATOR A FLUTTER CONTROLLED RATE AT 74.
[2018-01-17 19:30] VITALS: BP 124/80
[2018-01-18 00:10] VITALS: BP 134/82
[2018-01-18 03:41] VITALS: BP 117/65
--- NOTE | 2018-01-18 05:25 | NUR ---
AAOX4. RESP REG AND UNLABORED SKIN W/D NO ACUTE DISTRESS NOTED. PT HAD A GOOD NIGHT AND VOICED NO COMPLAINTS. PT STATED HE WAS GOINGHOME TODAY TELEMETRY PACK INTACT WITH ALARMS SET. VSS AND NO ACUTE CHANGES DURING SHIFT. WILL CONTINUE TO MONITOR
[2018-01-18 08:00] VITALS: BP 127/78
[2018-01-18 12:00] VITALS: BP 147/84
== END 2018-01-18 13:55 | disposition home or self-care (01) | DRG 292 ==
LOC: M.ERS 12:49 → M.TBA-ER 14:45 → M.2W 14:45 → M.TBA-ER 15:14 → M.2W 16:29
PROVIDERS: Emergency Medicine; ADMIT Internal Medicine
DX: I11.0 Hypertensive heart disease with heart failure (principal); I48.92 Unspecified atrial flutter; J44.1 Chronic obstructive pulmonary disease with (acute) exacerbation; I50.43 Acute on chronic combined systolic (congestive) and diastolic (congestive) heart failure; I50.20 Unspecified systolic (congestive) heart failure; I42.8 Other cardiomyopathies; I48.91 Unspecified atrial fibrillation; F17.210 Nicotine dependence, cigarettes, uncomplicated; Z91.14 Patient's other noncompliance with medication regimen; Z90.49 Acquired absence of other specified parts of digestive tract; Z79.899 Other long term (current) drug therapy

== ENCOUNTER 2018-02-04 02:36 | Inpatient (IN) | payer OTHER ==
[~2018-02-04] VITALS: Ht 180.3 cm; Wt 127.0 kg
[2018-02-04] VITALS (7 sets, daily range): BP systolic 118–155; BP diastolic 51–92
[2018-02-04 03:08] LABS: ABSOLUTE BASOPHILS 0.1 thou/uL (0.0-0.2); ABSOLUTE EOSINOPHILS 0.1 thou/uL (0.0-0.7); ABSOLUTE LYMPHOCYTES 1.9 thou/uL (0.8-5.3); ABSOLUTE NEUTROPHILS 6.5 thou/uL (1.6-8.1); BASOPHILS 1.4 %; EOSINOPHILS 1.5 %; HEMOGLOBIN 13.4 gm/dL (14.0-18.0); LYMPHOCYTES 19.4 %; MCH 28.6 pg (26.0-34.0); MCHC 32.8 g/dL (28.0-37.0); MCV 87.2 fL (80.0-100.0); MONOCYTES 10.8 %; MPV 8.9 fl. (7.2-11.1); NUCLEATED RBCS 0 /100WBC; PLATELET COUNT* 313 thou/uL (150-400); POLYS 66.9 %; WBC 9.7 thou/uL (4.0-11.0)
[2018-02-04 03:17] LABS: PROTIME 10.1 Seconds (9.20-11.50)
[2018-02-04 03:19] LABS: ANION GAP 3 mmol/L (7-16); BUN 19 mg/dL (7-18); CHLORIDE 104 mmol/L (98-107); CO2 31 mmol/L (21-32); CREATININE 1.5 mg/dL (0.6-1.3); GLUCOSE 216 mg/dL (70-99); POTASSIUM 3.9 mmol/L (3.5-5.1); SODIUM 138 mmol/L (136-145)
[2018-02-04 03:27] LABS: ALBUMIN 2.9 g/dL (3.4-5.0); ALKALINE PHOSPHATASE 101 U/L (46-116); LIPASE 252 U/L (73-393); NT-PRO BRAIN NAT PEPTIDE 284 pg/mL (<300); SGOT 32 U/L (15-37); SGPT 58 U/L (30-65); TOTAL BILIRUBIN 0.3 mg/dL (<0.1-1.0); TOTAL PROTEIN 7.4 g/dL (6.4-8.2); TROPONIN-I LEVEL <0.06 ng/mL (<0.06)
[2018-02-04 03:54] LABS: AMP/METHAMP Negative (Negative); BARBITURATES Negative (Negative); BENZODIAZEPINES Negative (Negative); COCAINE Negative (Negative); METHADONE Negative (Negative); OPIATES Negative (Negative); PCP Negative (Negative); THC Negative (Negative)
--- NOTE | 2018-02-04 07:07 | NUR ---
PT ARRIVED TO ROOM AT 0430 FROM ER. ASSESSMENT COMPLETED CHARTED. PT ABLE TO MAKE NEEDS KNOWN, PT SLEEPING AT THIS TIME. PT IS RED AND LS ARE WHEEZY. NO C/O PAIN. WILL CONTINUE TO MONITOR.
--- NOTE | 2018-02-04 10:41 | NUR ---
ASSUMED CARE OF PT AT 0730. PT RESTING IN BED. PT A&0X4, COMPLAINS OF SLIGHT HEADACHE AND ANXIETY, DR ROCHA NOTIFIED. AWAITING RESTART OF HOME MEDICATIONS AND MEDICATIONS FOR PAIN/ANXIETY. PT TRACING ATRIAL FLUTTER ON THE HAND SIGN WRITER. RATE IN THE 50'S-60'S. PT ON 2L NC SAT 97%. PT COMPLAINS OF SHORTNESS OF BREATH WITH EXERTION, PT DOES NOT WEAR OXYGEN AT HOME. DIM AND EXPIRATORY WHEEZES NOTED. PT HAS HISTORY OF COPD. PT UP WITH 1 ASSIST SBA TO BATHROOM. CARDIOLOGY CONSULT IN PLACE FOR ATRIAL FLUTTER. PT NPO AT THIS TIME. PT GOAL FOR TODAY IS TO BE SEEN BY CARDIOLOGY AND BREATHING TREATMENTS SCHEDULED AND PRN. AM ASSESSMENT CHARTED. MEDICATIONS PER AUG. PT REPOSITIONS SELF. HOURLY ROUNDING OBSERVED. BED IN LOW POSITION. CALL LIGHT WITHIN REACH. WILL CONTINUE PLAN OF CARE.
--- NOTE | 2018-02-04 17:27 | EKG ---
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 : 1970 Requested By: Godfrey Banerjee Order Number: [id number] MD: Jeremy Carr Measurements Intervals [place] Rate: 54 P: 58 [place]: 80 QRS: -36 QRSD: 96 T: 254 QT: 328 QTc: 311 Interpretive Statements Atrial flutter Left axis deviation Abnormal R-wave progression, late transition Nonspecific repol abnormality, diffuse leads Compared to ECG 01/16/2018 14:16:08 Heart rate has slowed Electronically Signed On 02-04-2018 17:27:16 CDT by Jeremy Carr [email or web address] <ELECTRONICALLY SIGNED> By: Jeremy Carr MD, FACC 02/04/18 1727 0250 0250 Jeremy Carr MD, [facility] /EPI
--- NOTE | 2018-02-04 17:35 | NUR ---
NO ACUTE CHANGES THROUGHOUT SHIFT. REFER TO CHARTING. PT SEEN BY CARDIOLOGY AND MEDICATION ADJUSTMENTS MADE AND CARDIOLOGY SIGNED OFF. REFER TO EMAR. PT DENIES ANY CHEST PAIN THROUGHOUT SHIFT. PT COMPLAINED OF HEADACHE. TREATED WITH PRN TYLENOL WITH RELIEF. PT CONTINUES TO TRACE ATRIAL FLUTTER ON THE FREIGHT SHIPPING AGENT. PT TITRATED FROM 3L NC TO 2L NC SAT UPPER 90'S. DENIES ANY SHORTNESS OF BREATH WITH REST. PT UP WITH SBA TO BATHROOM. PT STARTED ON SLIDING SCALE INSULIN BLOOD GLUCOSE ELEVATED. PT GIVEN 4 UNITS INSULIN WITH DINNER-REFER TO EMAR. MEDICATIONS PER AUG. PT REPOSITIONS SELF WITH REMINDERS. HOURLY ROUNDING OBSERVED. BED IN LOW POSITION. CALL LIGHT WITHIN REACH. WILL CONTINUE PLAN OF CARE.
[2018-02-05] VITALS: BP 129/65
[2018-02-05 04:00] VITALS: BP 129/79
[2018-02-05 05:49] LABS: HEMATOCRIT 42.3 % (42.0-52.0); HEMOGLOBIN 13.6 gm/dL (14.0-18.0); MCH 28.6 pg (26.0-34.0); MCHC 32.2 g/dL (28.0-37.0); MCV 88.8 fL (80.0-100.0); NUCLEATED RBCS 0 /100WBC; PLATELET COUNT* 274 thou/uL (150-400); RBC 4.76 mil/uL (4.50-6.00); WBC 8.5 thou/uL (4.0-11.0)
--- NOTE | 2018-02-05 06:09 | NUR ---
RECEIVED REPORT AND ASSUMED CARE AT 1900. VSS. CARDIAC MONITORING IN PLACE. ASSESSMENT COMPLETED CHARTED. PT REPORTED A HEADACHE, PRN MEDICATION ADMIN PER EMAR. MEDICATION ADMIN PER ORDERS. PT UP WITH ASSIST IN ROOM, ON 2L NC. DISCUSSED PLAN OF CARE WITH PT, VERBALIZED UNDERSTANDING. HOURLY ROUNDING COMPELTED, ALL NEEDS MET. BED LOCKED IN LOWEST POSITION, CALL LIGHT WITHIN REACH. WILL CONTINUE TO MONITOR FOR REMAINDER OF THE SHIFT.
[2018-02-05 06:15] LABS: CALCIUM 8.7 mg/dL (8.5-10.1); CREATININE 1.6 mg/dL (0.6-1.3); POTASSIUM 5.3 mmol/L (3.5-5.1)
[2018-02-05 06:18] LABS: ABSOLUTE LYMPHOCYTES 0.5 thou/uL (0.8-5.3); ABSOLUTE MONOCYTES 0.2 thou/uL (0.0-1.2); ABSOLUTE NEUTROPHILS 7.8 thou/uL (1.6-8.1); PLATELET ESTIMATE ADEQUATE
[2018-02-05 06:19] LABS: ANISOCYTOSIS 1+; POIKILOCYTOSIS 1+; POLYCHROMASIA 1+
[2018-02-05 08:00] VITALS: BP 144/79
[2018-02-05 11:30] VITALS: BP 121/82
--- NOTE | 2018-02-05 12:00 | NUR ---
ASSUMED CARE OF PATIENT THIS AM AT 0730. PATIENT IS ALERT AND ORIENTED X 4. HE DENIES PAIN AND DISCOMFORT THIS AM. TELE SHOWS A FIB-FLUTTER. PATIENT IS RESTING IN BED WITH CALL LIGHT IN REACH. WILL CONTINUE TO MONITOR.
[2018-02-05] MEDS ORDERED: PREDNISONE 10 M10 MG PO (14:43)
[2018-02-05] MEDS ORDERED: ALBUTEROL2.5 MG/31 INH (14:48)
[2018-02-05] MEDS ORDERED: AUGMENTIN 875-1 EACH PO (15:32)
[2018-02-05] MEDS ORDERED: PROTONIX40 M1 PO (15:33)
--- NOTE | 2018-02-05 16:00 | NUR ---
MET WITH PT TO DISCUSS HOME SITUATION/DC PLANNING. PT KNOWN TO CM FROM PREVIOUS ADMITS. STATES HE IS LIVING IN [facility] ALONE BUT DOESN'T HAVE UTILITES, SO SOMETIMES HE STAYS WITH HIS BROTHER. HE IS TRYING TO GET DISABILITY BUT HAS BEEN DECLINED. ALSO HAD APPLICATION FOR MEDICAID FILLED OUT. CONTACTED MELLO FROM [employer] AND SHE CAME OUT TO VISIT WITH PT. GAVE HER ADD'L INFO AND SHE IS HOPEFUL PT WILL QUALIFY. PT STATES HE HAS NO INCOME AND FAMILY ASSIST HIM THEY CAN. HE IS UNABLE TO GET HIS MEDS FILLED, SENT SCRIPTS TO [employer] TO GET THRU ASSISTANCE PROGRAM. GAVE PT COMMUNITY RESOURCES AND INFO FOR [facility] AND ENCOURAGED HIM TO MAKE APPT. HE WAS ABLE TO GET ONE FOR NEXT WEEK. CALLED AND CONFIRMED AND FAXED CLINICAL INFO FOR APPT TO [facility]. PT APPRECIATIVE AND STATED HE WOULD F/U DISCUSSED
== END 2018-02-05 17:00 | disposition home or self-care (01) | DRG 191 ==
LOC: M.ERS 02:36 → M.2W 03:40 → M.TBA-ER 03:40 → M.2W 04:30
PROVIDERS: Emergency Medicine; Internal Medicine; ADMIT Internal Medicine
DX: J44.0 Chronic obstructive pulmonary disease with (acute) lower respiratory infection (principal); I42.8 Other cardiomyopathies; I50.22 Chronic systolic (congestive) heart failure; G47.33 Obstructive sleep apnea (adult) (pediatric); I48.2 Chronic atrial fibrillation; E66.9 Obesity, unspecified; I11.0 Hypertensive heart disease with heart failure; Z79.01 Long term (current) use of anticoagulants; Z82.5 Family history of asthma and other chronic lower respiratory diseases; Z87.891 Personal history of nicotine dependence; Z68.39 Body mass index [BMI] 39.0-39.9, adult

== ENCOUNTER 2018-02-12 16:42 | Emergency (ER) | payer OTHER ==
[~2018-02-12] VITALS: Ht 180.3 cm; Wt 129.0 kg
[~2018-02-12 16:42] MED LIST changes: +ALBUTEROL2.5 MG/31 INH; +AUGMENTIN 875-1 EACH PO; +PREDNISONE 10 M10 MG PO; +PROTONIX40 M1 PO
[2018-02-12 17:09] LABS: ABSOLUTE BASOPHILS 0.1 thou/uL (0.0-0.2); ABSOLUTE EOSINOPHILS 0.3 thou/uL (0.0-0.7); ABSOLUTE NEUTROPHILS 8.5 thou/uL (1.6-8.1); BASOPHILS 0.8 %; EOSINOPHILS 2.7 %; HEMATOCRIT 43.1 % (42.0-52.0); HEMOGLOBIN 14.1 gm/dL (14.0-18.0); LYMPHOCYTES 16.6 %; MCH 28.3 pg (26.0-34.0); MCHC 32.7 g/dL (28.0-37.0); MCV 86.5 fL (80.0-100.0); MONOCYTES 8.6 %; NUCLEATED RBCS 0 /100WBC; PLATELET COUNT* 274 thou/uL (150-400); POLYS 71.3 %; RBC 4.99 mil/uL (4.50-6.00); RDW-CV 15.4 % (10.5-14.5); WBC 11.9 thou/uL (4.0-11.0)
[2018-02-12 17:29] LABS: ANION GAP 7 mmol/L (7-16); BUN 24 mg/dL (7-18); CALCIUM 7.9 mg/dL (8.5-10.1); CHLORIDE 100 mmol/L (98-107); CO2 27 mmol/L (21-32); CREATININE 1.2 mg/dL (0.6-1.3); GLUCOSE 194 mg/dL (70-99); SODIUM 134 mmol/L (136-145)
[2018-02-12 17:52] LABS: ALBUMIN 3.1 g/dL (3.4-5.0); ALKALINE PHOSPHATASE 101 U/L (46-116); CK-MB MASS 2.5 ng/mL (<0.5-3.6); LIPASE 217 U/L (73-393); MAGNESIUM 2.2 mg/dL (1.8-2.4); NT-PRO BRAIN NAT PEPTIDE 214 pg/mL (<300); SGOT 28 U/L (15-37); SGPT 47 U/L (30-65); TOTAL BILIRUBIN 0.2 mg/dL (<0.1-1.0); TOTAL PROTEIN 7.1 g/dL (6.4-8.2); TROPONIN-I LEVEL <0.06 ng/mL (<0.06)
[2018-02-12 18:16] VITALS: BP 153/90
--- NOTE | 2018-02-13 10:55 | EKG ---
[place] [address] ELECTROCARDIOGRAM REPORT Name: YANNJUDAHFRANCISCO L Room: [facility]#: [id number] Admission: 02/12/18 Attend Phys: Discharge: 02/12/18 Date of : 68 Report #: [id number] THIS REPORT FOR: //name// [facility] ED Test Date: 2018-02-12 Test Time: 16:45:27 Pat Name: FRANCISCO LERNER Department: Room: [facility] Gender: Intensive Care Medicine Specialist: : 1970 Requested By: Jayy Ervin Order Number: [id number] MD: Robert Lerma Measurements Intervals [place] Rate: 117 P: ID: QRS: -49 QRSD: 95 T: 17 QT: 369 QTc: 515 Interpretive Statements Atrial flutter with predominant 2:1 AV block Prolonged QT interval Compared to ECG 02/04/2018 02:50:46 2:1 AV block now present Prolonged QT interval now present Electronically Signed On 02-13-2018 10:55:07 CDT by Robert Lerma [email or web address] <ELECTRONICALLY SIGNED> By: Robert Lerma MD, [facility] 02/13/18 1055 1645 1645 Robert Lerma MD, [facility] /EPI
--- NOTE | 2018-02-13 11:04 | EKG ---
[place] [address] ELECTROCARDIOGRAM REPORT Name: YANNFRANCISCO L Room: [facility]#: [id number] Admission: 02/12/18 Attend Phys: Discharge: 02/12/18 Date of : 68 Report #: [id number] THIS REPORT FOR: //name// [facility] ED Test Date: 2018-02-13 Test Time: 04:10:29 Pat Name: FRANCISCO LERNER Department: Room: [facility] Gender: Braider Tender: REAGAN : 1970 Requested By: Kirstie Enciso Order Number: [id number] MD: Robert Lerma Measurements Intervals [place] Rate: 124 P: 216 PA: 66 QRS: 11 QRSD: 112 T: 31 QT: 374 QTc: 538 Interpretive Statements atrial flutter Borderline intraventricular conduction delay Borderline low voltage, extremity leads Abnormal R-wave progression, late transition Prolonged QT interval Electronically Signed On 02-13-2018 11:04:35 CDT by Robert Lerma [email or web address] <ELECTRONICALLY SIGNED> By: Robert Lerma MD, [facility] 02/13/18 1104 0410 0410 Robert Lerma MD, [facility] /EPI
--- NOTE | 2018-02-13 11:05 | EKG ---
[place] [address] ELECTROCARDIOGRAM REPORT Name: FRANCISCO LERNER Room: [facility]#: [id number] Admission: 02/12/18 Attend Phys: Discharge: 02/12/18 Date of : 68 Report #: [id number] THIS REPORT FOR: //name// [facility] ED Test Date: 2018-02-13 Test Time: 04:59:05 Pat Name: FRANCISCO LERNER Department: Room: [facility] Gender: Order Tracer: REAGAN : 1970 Requested By: Kirstie Enciso Order Number: [id number] MD: Robert Lerma Measurements Intervals [place] Rate: 81 P: [place]: QRS: -26 QRSD: 103 T: QT: 444 QTc: 516 Interpretive Statements Atrial flutter Borderline left axis deviation Abnormal R-wave progression, late transition Borderline repolarization abnormality Prolonged QT interval Electronically Signed On 02-13-2018 11:05:06 CDT by Robert Lerma [email or web address] <ELECTRONICALLY SIGNED> By: Robert Lerma MD, [facility] 02/13/18 1105 0459 0459 Robert Lerma MD, [facility] /EPI
== END 2018-02-12 18:16 | disposition home or self-care (01) ==
LOC: M.ERS 16:42
PROVIDERS: Family Medicine
DX: I48.91 Unspecified atrial fibrillation (principal); R07.89 Other chest pain; J44.9 Chronic obstructive pulmonary disease, unspecified; I11.0 Hypertensive heart disease with heart failure; I50.20 Unspecified systolic (congestive) heart failure; Z90.49 Acquired absence of other specified parts of digestive tract

== ENCOUNTER 2018-02-13 03:50 | Inpatient (IN) | payer OTHER ==
[~2018-02-13] VITALS: Ht 180.3 cm; Wt 125.2 kg
[2018-02-13 03:52] VITALS: BP 160/105
[2018-02-13 04:50] LABS: BE 3.7 mmol/L (-2 to +3); HCO3 29.2 mmol/L (22.0-26.0); PCO2 47.2 mmHg (35.0-45.0); pH 7.409 (7.340-7.450)
[2018-02-13 05:12] LABS: NT-PRO BRAIN NAT PEPTIDE 261 pg/mL (<300); TROPONIN-I LEVEL <0.06 ng/mL (<0.06)
[2018-02-13 05:45] VITALS: BP 145/98
[2018-02-13 08:00] VITALS: BP 170/104
[2018-02-13 12:14] VITALS: BP 142/91
[2018-02-13 17:12] VITALS: BP 130/83
[2018-02-13 20:00] VITALS: BP 104/83
[2018-02-14] VITALS: BP 114/75
[2018-02-14 04:57] LABS: HEMATOCRIT 44.3 % (42.0-52.0); HEMOGLOBIN 14.2 gm/dL (14.0-18.0); MCH 27.9 pg (26.0-34.0); MCHC 32.1 g/dL (28.0-37.0); MCV 86.9 fL (80.0-100.0); MPV 8.8 fl. (7.2-11.1); RBC 5.09 mil/uL (4.50-6.00); RDW-CV 15.1 % (10.5-14.5); WBC 15.6 thou/uL (4.0-11.0)
[2018-02-14 05:10] LABS: CALCIUM 8.8 mg/dL (8.5-10.1); CREATININE 1.2 mg/dL (0.6-1.3); MAGNESIUM 2.3 mg/dL (1.8-2.4); POTASSIUM 5.4 mmol/L (3.5-5.1)
[2018-02-14 08:00] VITALS: BP 138/84
[2018-02-14 11:54] VITALS: BP 133/83
--- NOTE | 2018-02-14 14:55 | CON ---
[address] [address] CONSULTATION Name: FRANCISCO LERNER Room: [address] IN M.R.#: [id number] Admission: 02/13/18 Attend Phys: Chalino Eason MD Discharge: Date of : 68 Report #: [id number] THIS REPORT FOR: //name// CC: Chalino Eason [facility] physician/PCP DATE OF SERVICE: 02/13/2018 REQUESTING PHYSICIAN: Dr. Aguilar. INDICATION FOR CONSULTATION: Witnessed apneas while asleep and shortness of breath. HISTORY OF PRESENT ILLNESS: This is a 47-year-old gentleman whose past medical history is as mentioned below. This includes an obvious history of sleep apnea. The patient on multiple occasions has had long and sustained apneas while asleep. He also has severe sleepiness during the day. The patient unfortunately has not been on positive airway pressure therapy on account of the fact that so far he has no insurance. He currently has Medicaid pending. The patient also has a history of cardiomyopathy and atrial fibrillation/flutter. He is on long-term anticoagulation with Eliquis, which he gets as samples. The patient has had multiple admissions to this hospital including there have been 2 admissions in the last few weeks. During the last hospitalization also the patient was treated for shortness of breath as well as witnessed apneas while asleep. He again was noted to have had long and sustained apneas by family at home and therefore was brought here. The patient has had severe sleepiness as well. He continues to have shortness of breath. He at this time says he still has shortness of breath at rest. He does have a cough. There is not much sputum production. At times his chest feels tight, but has no chest pain. There are no upper respiratory complaints. He has mild swelling of lower extremities, which has not changed recently. There is no calf pain. He has had other pain complaints, which are at baseline. He answers to the negative for 12 questions for review of systems except as mentioned above. As noted, he has severe hypersomnia and marked sleep disturbances. PAST MEDICAL HISTORY: Cardiomyopathy. His left ventricular ejection fraction is 35-40%. He does not have right heart pressure elevation on his last echo. 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 COPD by clinical history. I do not have previous PFTs available. Obvious history of sleep apnea, but he has never had a sleep study before. He also has a history of atrial fibrillation/flutter. He does report taking Eliquis regularly. Obviously, he does not have financially resources to purchase Eliquis, but he says that he has been [place] [address] CONSULTATION Name: FRANCISCO LERNER Room: [address] IN .R.#: [id number] Admission: 02/13/18 Attend Phys: Chalino Eason MD Discharge: Date of : 68 Report #: [id number] Eliquis regularly since August. Bulging disk in lower back with back pain, appendectomy, right foot surgery, hypertension, clot in the left wrist in 2003, obesity with a body mass index of 38. ALLERGIES: No known drug allergies. SOCIAL HISTORY: He has an extensive history of smoking, I am unable to quantify exactly at this time. There is a possible history of meth use in the past. FAMILY HISTORY: There is no pertinent family history. CURRENT MEDICATIONS: List in [facility] reviewed. HOME MEDICATIONS: List also in [facility] reviewed. PHYSICAL EXAMINATION: GENERAL: He is alert, awake and oriented. VITAL SIGNS: Has a pulse of 92 and a blood pressure of 142/91. His respiratory rate is 16. He is afebrile with temperature of 36.6. He is saturating in the mid 90s. He is not on supplemental oxygen. His body mass index is 38. HEENT: Head is normocephalic and atraumatic. Pupils are equal and reactive. There is no throat erythema. Airway is Mallampati 3. He has a narrow airway. NECK: Does not show raised JVP, asymmetry, mass or lymph nodes. CHEST: Symmetrical expansion on inspection and palpation. On auscultation, breath sounds are bilaterally equal, decreased, expirations are prolonged. I do not hear any added sounds. HEART: Irregular. There is no murmur. ABDOMEN: Soft and nontender. EXTREMITIES: Lower extremities show trace edema. There are significant varicose veins as well as evidence of chronic venous insufficiency noted. There is no calf tenderness. Skin, however, is dry and intact. NEUROLOGICAL: Moves all extremities bilaterally equally and spontaneously with no focal deficit identified. DIAGNOSTIC DATA: The patient did have a chest x-ray done today; it shows some chronic changes. There is mild cardiomegaly, otherwise chest x-ray is unremarkable. LABORATORY DATA: The patient's lab work is in [facility] and this is also reviewed. Arterial blood gas, which is consistent with chronic hypercarbia in [facility] reviewed. ASSESSMENT AND PLAN: 1. Acute respiratory insufficiency. The patient appears to have severe sleep apnea. On clinical grounds, unless he is treated with positive airway pressure therapy, I would expect him to continue to have recurrent admissions to this [address] [place] [address] CONSULTATION Name: FRANCISCO LERNER Room: [address] IN ..#: [id number] Admission: 02/13/18 Attend Phys: Chalino Eason MD Discharge: Date of : 68 Report #: [id number] hospital, noted that within the last 2 weeks he has been admitted for the third time now. While this appears to be the primary etiology of his decompensation at this time, it is noted that the patient does appear to have a component of bronchospasm still as well. In addition, as noted above, he has chronic systolic congestive heart failure. 2. Sleep apnea. Ideally the patient should have an in-lab sleep study as soon as possible. He may have central sleep apnea in addition to obstructive sleep apnea. Unfortunately, he currently does not have insurance and he has Medicaid pending. I talked to the medical case manager and she will try to arrange a BiPAP for him. I recommended a BiPAP while asleep with a backup rate be arranged prior to his discharge. Otherwise, I will expect him to be back into the hospital soon. We will go ahead and place him on a BiPAP with a backup rate at night. We will start with room air. We will do a nocturnal pulse oximetry. We will add oxygen if needed. We will advise further tomorrow. Weight loss is also strongly recommended. 3. Chronic obstructive pulmonary disease exacerbation. He still does appear to be having a component of bronchospasm. I therefore did go ahead and increase his Solu-Medrol dose. I also ordered scheduled nebulized bronchodilators. Recommend watching blood glucoses and treating with insulin as indicated. Note that his admission blood glucose was elevated to 194. 4. Cardiomyopathy/chronic systolic congestive heart failure. Would defer followup to the Cardiology Service. 5. Atrial flutter/fibrillation. Also, would defer to the Cardiology Service. 6. Obesity. Recommend weight loss. Thanks for this consultation. <ELECTRONICALLY SIGNED> By: Hany Stephens MD 02/14/18 1455 1332 1924Ager Stephens MD /nt
[2018-02-14 15:47] VITALS: BP 118/83
[2018-02-14 20:00] VITALS: BP 108/78
[2018-02-15 08:00] VITALS: BP 112/81
[2018-02-15 09:57] LABS: CALCIUM 9.5 mg/dL (8.5-10.1); CREATININE 1.3 mg/dL (0.6-1.3); MAGNESIUM 2.4 mg/dL (1.8-2.4); POTASSIUM 5.3 mmol/L (3.5-5.1)
[2018-02-15] MEDS ORDERED: PREDNISONE 10 M10 MG PO (10:29)
[2018-02-15] MEDS ORDERED: TOPROL XL50 MG PO (10:29)
[2018-02-15 10:38] VITALS: BP 112/81
[2018-02-15 11:52] VITALS: BP 125/90
[2018-02-15 13:15] VITALS: BP 112/81
== END 2018-02-15 13:25 | disposition home or self-care (01) | DRG 191 ==
LOC: M.ERS 03:50 → M.2W 04:54 → M.TBA-ER 04:54 → M.2W 05:28
PROVIDERS: Internal Medicine; Internal Medicine Critical Care Medicine; Personal Emergency Response Attendant; ADMIT Internal Medicine
DX: J44.1 Chronic obstructive pulmonary disease with (acute) exacerbation (principal); I48.3 Typical atrial flutter; I50.42 Chronic combined systolic (congestive) and diastolic (congestive) heart failure; I42.9 Cardiomyopathy, unspecified; I11.0 Hypertensive heart disease with heart failure; G47.33 Obstructive sleep apnea (adult) (pediatric); I48.2 Chronic atrial fibrillation; E78.5 Hyperlipidemia, unspecified; F15.10 Other stimulant abuse, uncomplicated; E11.65 Type 2 diabetes mellitus with hyperglycemia; T38.0X5A Adverse effect of glucocorticoids and synthetic analogues, initial encounter; E66.9 Obesity, unspecified; Y92.89 Other specified places as the place of occurrence of the external cause; Z68.38 Body mass index [BMI] 38.0-38.9, adult; Z90.49 Acquired absence of other specified parts of digestive tract; Z79.01 Long term (current) use of anticoagulants; Z79.899 Other long term (current) drug therapy; Z91.14 Patient's other noncompliance with medication regimen; Z87.891 Personal history of nicotine dependence; Z82.5 Family history of asthma and other chronic lower respiratory diseases

== ENCOUNTER 2018-04-17 05:08 | Inpatient (IN) | payer OTHER ==
[~2018-04-17] VITALS: Ht 180.3 cm; Wt 120.7 kg
[2018-04-17 05:15] VITALS: BP 127/88
[2018-04-17 05:33] LABS: HEMATOCRIT 46.4 % (42.0-52.0); HEMOGLOBIN 14.9 gm/dL (14.0-18.0); MCH 27.1 pg (26.0-34.0); MCV 84.8 fL (80.0-100.0); NUCLEATED RBCS 0 /100WBC; PLATELET COUNT* 391 thou/uL (150-400); RBC 5.48 mil/uL (4.50-6.00); RDW-CV 16.2 % (10.5-14.5); WBC 8.7 thou/uL (4.0-11.0)
[2018-04-17 05:39] LABS: URINE BILIRUBIN NEGATIVE (Negative); URINE BLOOD TRACE (Negative); URINE CLARITY CLEAR; URINE COLOR YELLOW; URINE GLUCOSE-RANDOM NEGATIVE (Negative); URINE KETONES NEGATIVE (Negative); URINE LEUKOCYTES-REFLEX NEGATIVE (Negative); URINE NITRITE-REFLEX NEGATIVE (Negative); URINE PROTEIN 2+ (Negative); URINE SPECIFIC GRAVITY >= 1.030 (1.005-1.030); URINE UROBILINOGEN 0.2 E.U./dl (0.2-1.0)
[2018-04-17 05:41] LABS: AMP/METHAMP POSITIVE (Negative); BARBITURATES Negative (Negative); BENZODIAZEPINES Negative (Negative); COCAINE Negative (Negative); METHADONE Negative (Negative); OPIATES Negative (Negative); PCP Negative (Negative); THC Negative (Negative)
[2018-04-17 05:42] LABS: ANION GAP 4 mmol/L (7-16); BUN 21 mg/dL (7-18); CALCIUM 8.8 mg/dL (8.5-10.1); CHLORIDE 103 mmol/L (98-107); CO2 31 mmol/L (21-32); CREATININE 1.3 mg/dL (0.6-1.3); GLUCOSE 109 mg/dL (70-99); POTASSIUM 4.2 mmol/L (3.5-5.1); SODIUM 138 mmol/L (136-145)
[2018-04-17 05:46] LABS: PROTIME 10.2 Seconds (9.20-11.50)
[2018-04-17 05:48] LABS: SQUAMOUS 0-3 Few /LPF (0-3)
[2018-04-17 05:49] LABS: BACTERIA-REFLEX 1-9 Few /HPF (None Seen); CASTS None Seen /LPF (None Seen); CRYSTALS None Seen /LPF (None Seen); MUCUS >6 Heavy strn/LPF (None Seen); URINE RBC 0-2 Rare /HPF (0-2); URINE WBC-REFLEX 0-5 Rare /HPF (0-5)
[2018-04-17 05:55] LABS: ALBUMIN 3.3 g/dL (3.4-5.0); ALKALINE PHOSPHATASE 91 U/L (46-116); NT-PRO BRAIN NAT PEPTIDE 396 pg/mL (<300); SGOT 24 U/L (15-37); SGPT 34 U/L (30-65); TOTAL BILIRUBIN 0.2 mg/dL (<0.1-1.0); TOTAL PROTEIN 7.9 g/dL (6.4-8.2); TROPONIN-I LEVEL <0.06 ng/mL (<0.06)
[2018-04-17 06:04] LABS: ABSOLUTE BASOPHILS 0.1 thou/uL (0.0-0.2); ABSOLUTE EOSINOPHILS 0.2 thou/uL (0.0-0.7); ABSOLUTE LYMPHOCYTES 2.3 thou/uL (0.8-5.3); ABSOLUTE MONOCYTES 0.8 thou/uL (0.0-1.2); ABSOLUTE NEUTROPHILS 5.4 thou/uL (1.6-8.1); ATYPICAL LYMPHS 7 %; METAMYELOCYTES 2 %
--- NOTE | 2018-04-17 07:04 | NUR ---
RETURNED FROM CT
[2018-04-17 08:20] VITALS: BP 127/83; BP 130/86
[2018-04-17 09:25] VITALS: BP 130/86
--- NOTE | 2018-04-17 09:25 | NUR ---
0820 ADMITTED TO TELE ROOM 211 FROM ER PER CART. SEE ADMISSION ASSESSMENT. MONITOR SHOWS ATRIAL FIB/FLUTTER RATE IN THE 90'S. SHORT OF AIR WITH EXERTION. ORIENTED TO ROOM AND BED LIGHT AND BED CONTROLS.
[2018-04-17 11:51] VITALS: BP 138/79
--- NOTE | 2018-04-17 13:58 | EKG ---
[place] [address] ELECTROCARDIOGRAM REPORT Name: FRANCISCO LERNER Room: [address] ADM IN .R.#: [id number] Admission: 04/17/18 Attend Phys: Chalino Eason MD Discharge: Date of : 68 Report #: [id number] THIS REPORT FOR: //name// [facility] ED Test Date: 2018-04-17 Test Time: 05:20:56 Pat Name: FRANCISCO LERNER Department: Room: [facility] Gender: M Milieu Coordinator: : 1970 Requested By: Jazmin Ibanez Order Number: [id number] MD: Hong Jay Measurements Intervals [place] Rate: 118 P: TX: QRS: -53 QRSD: 91 T: 39 QT: 366 QTc: 514 Interpretive Statements Atrial flutter with predominant 2:1 AV block Abnormal R-wave progression, late transition Inferior infarct, old possible Prolonged QT interval Compared to ECG 02/13/2018 04:59:05 2:1 AV block now present Myocardial infarct finding now present Electronically Signed On 04-17-2018 13:58:06 CDT by Hong Jay [email or web address] <ELECTRONICALLY SIGNED> By: Hong Jay MD, FACC 04/17/18 1358 9 Hong Jay MD, FACC /EPI
[2018-04-17 15:42] VITALS: BP 132/72
--- NOTE | 2018-04-17 16:49 | NUR ---
PATIENT PROGRESSING TOWARDS GOALS. ADMITTED THIS AM FOR ATRIAL FLUTTER AND DYSPNEA. FIB/FLUTTER CONTROLLED WITH METOPROLOL. AEROSOL TREATMENTS IMPROVING DYSPNEA. CONTINUES TO HAVE WHEEZING BUT IS LESS SOA WITH EXERTION. DIURESED. APPETITE EXCELLENT
[2018-04-17 19:30] VITALS: BP 137/76
[2018-04-18] VITALS (7 sets, daily range): BP systolic 114–144; BP diastolic 50–90
[2018-04-18 04:19] LABS: ABSOLUTE BASOPHILS 0.1 thou/uL (0.0-0.2); ABSOLUTE LYMPHOCYTES 0.8 thou/uL (0.8-5.3); ABSOLUTE MONOCYTES 0.9 thou/uL (0.0-1.2); ABSOLUTE NEUTROPHILS 13.7 thou/uL (1.6-8.1); BASOPHILS 0.5 %; EOSINOPHILS 0.1 %; HEMATOCRIT 45.1 % (42.0-52.0); HEMOGLOBIN 14.5 gm/dL (14.0-18.0); LYMPHOCYTES 5.4 %; MCH 27.1 pg (26.0-34.0); MCHC 32.1 g/dL (28.0-37.0); MCV 84.4 fL (80.0-100.0); MONOCYTES 5.8 %; MPV 9.4 fl. (7.2-11.1); NUCLEATED RBCS 0 /100WBC; PLATELET COUNT* 401 thou/uL (150-400); POLYS 88.2 %; RBC 5.34 mil/uL (4.50-6.00); RDW-CV 15.9 % (10.5-14.5); WBC 15.5 thou/uL (4.0-11.0)
--- NOTE | 2018-04-18 05:11 | NUR ---
PT AAOX4 RESP REG AND UNLABORED SKIN W/D NO ACUTE DISTRESS NOTED. TELEMETRY PACK INTACT WITH ALARMS SET. PT WAS IN SR AT BEGINNING OF SHIFT AND HAS CONVERTED BACK TO AFIB FLUTTER. NO ACUTE SYSMPTOMS NOTED. VSS. PT DENIES CHEST PAIN, O2 2L BNC INTACT, WITH A NON PRODUCTIVE COUGH NOTED. PT HAS SLEPT MOST OF THE SHIFT. WILL CONTINUE TO MONITOR
[2018-04-18 05:14] LABS: CALCIUM 9.3 mg/dL (8.5-10.1); CREATININE 1.2 mg/dL (0.6-1.3)
--- NOTE | 2018-04-18 08:00 | NUR ---
ASSUMED CARE OF PT ASSESSED AND DOCUMENTED. PT IS ON CARDIAC MONITER TRACING ST HR 123. PT IS A&O WITH NO C/O PAIN. VSS WNL. PT IS AFEBRILE. PT IS ON 2L OF 02. SCDS ARE ON. BED IS IN LOW POSITION CALL LIGHT IS IN REACH. WM.
--- NOTE | 2018-04-18 12:02 | NUR ---
Pt is A&O. Resides at home. Independent with ADLs. Known to this CM from previous hospital stay. Pt states that he has been using his bipap as ordered and continues to f/u with Dr Rodriguez in [place]. Pt tested positive for meth, declined resources. CM contacted Spring at [facility] to check status of his [place]. Following.
--- NOTE | 2018-04-18 16:58 | NUR ---
PT HAS RESTED IN HIS ROOM AND SLEPT MOST OF THE SHIFT. HE ORDERED ERLIN BONILLA TO BE DELIVERED TO HIS ROOM. EDUCATION GIVEN ON DEMAND. HOURLY ROUNDING COMPLETE.
[2018-04-19 04:50] VITALS: BP 122/68
[2018-04-19 05:07] LABS: HEMATOCRIT 42.5 % (42.0-52.0); HEMOGLOBIN 13.7 gm/dL (14.0-18.0); MCHC 32.2 g/dL (28.0-37.0); MPV 8.8 fl. (7.2-11.1); RBC 5.06 mil/uL (4.50-6.00); WBC 15.9 thou/uL (4.0-11.0)
[2018-04-19 05:48] LABS: ALBUMIN 3.1 g/dL (3.4-5.0); CALCIUM 8.7 mg/dL (8.5-10.1); CREATININE 1.2 mg/dL (0.6-1.3); MAGNESIUM 2.3 mg/dL (1.8-2.4); POTASSIUM 4.5 mmol/L (3.5-5.1); TOTAL BILIRUBIN 0.2 mg/dL (<0.1-1.0); TOTAL PROTEIN 6.7 g/dL (6.4-8.2)
--- NOTE | 2018-04-19 06:14 | NUR ---
PT AAOX4 RESP REG AND UNLABORED SKIN W/D PT HAD O2 OFF AT BEGINNING OF SHIFT PUT HAD O2 2L BNC PLACED ON FOR SLEEP. PT SLEPT WELL AND VERBALIZED NO C/O PIAN SOB THIS SHIFT. VSS AND NO ACUTE CHANGES DURING SHIFT. TELEMETRY PACK INTACT. WILL CONTINNUE TO MONITOR.
--- NOTE | 2018-04-19 07:12 | NUR ---
CHANGE OF SHIFT BEDSIDE REPORT GIVEN PATIENT SEEN AT BEDSIDE IN BED ASLEEP ASSUMED PATIENT CARE
[2018-04-19 08:00] VITALS: BP 143/92
[2018-04-19 12:28] VITALS: BP 115/77
[2018-04-19 17:07] VITALS: BP 139/79
[2018-04-19 19:30] VITALS: BP 127/80
[2018-04-20 02:06] VITALS: BP 139/78
[2018-04-20 04:47] VITALS: BP 116/76
[2018-04-20 04:47] LABS: HEMATOCRIT 43.6 % (42.0-52.0); MCHC 32.1 g/dL (28.0-37.0); MCV 84.1 fL (80.0-100.0); MPV 9.3 fl. (7.2-11.1); RBC 5.18 mil/uL (4.50-6.00); RDW-CV 16.2 % (10.5-14.5); WBC 12.5 thou/uL (4.0-11.0)
[2018-04-20 05:09] LABS: ALBUMIN 3.1 g/dL (3.4-5.0); CALCIUM 8.8 mg/dL (8.5-10.1); CREATININE 1.2 mg/dL (0.6-1.3); MAGNESIUM 2.2 mg/dL (1.8-2.4); POTASSIUM 4.8 mmol/L (3.5-5.1); TOTAL BILIRUBIN 0.3 mg/dL (<0.1-1.0); TOTAL PROTEIN 6.7 g/dL (6.4-8.2)
--- NOTE | 2018-04-20 05:51 | NUR ---
APROX 2200 NURSING NOTICED EKG IRREGULARITY. 12 LEAD EKG TAKEN. EKG SHOWED ACUTE OK. ER PROVIDER SHOWN EKG, ORDERS TO CONTACT CARDIOLOGY. LEAD INSTRUCTOR/FLIGHT ATTENDANT PROVIDER CALLED TO GET ORDERS FOR CARDIOLOGY. ORDERS RECIEVED. TROP LEVEL COLECTED CARDIOLOGY CALLED INFORMATION GIVEN, CARDIOLOGY TO SEE PT IN AM. SEE MAR. SEE CHARTING. HOURLY ROUNDING FOR SAFETY.
--- NOTE | 2018-04-20 07:20 | NUR ---
CHANGE OF SHIFT, BEDSIDE REPORT GIVEN PATIENT SEEN AT BEDSIDE, IN BED ASLEEP ASSUMED PATIENT CARE
[2018-04-20 08:00] VITALS: BP 156/106
--- NOTE | 2018-04-20 11:11 | EKG ---
[place] [address] ELECTROCARDIOGRAM REPORT Name: FRANCISCO LERNER Room: [address] ADM IN .R.#: [id number] Admission: 04/17/18 Attend Phys: Chalino Eason MD Discharge: Date of : 68 Report #: [id number] THIS REPORT FOR: //name// [facility] Test Date: 2018-04-19 Test Time: 21:58:36 Pat Name: FRANCISCO LERNER Department: Room: [address] Gender: M Kitchen Worker: ROSALEE : 1970 Requested By: Robert Parikh Order Number: [id number] MD: Robert Lerma Measurements Intervals [place] Rate: 100 P: MS: QRS: -8 QRSD: 116 T: 60 QT: 431 QTc: 556 Interpretive Statements Atrial flutter Ventricular premature complex Nonspecific intraventricular conduction delay Lateral leads are also involved Compared to ECG 04/17/2018 05:20:56 Ventricular premature complex(es) now present rate slowed Prolonged QT interval no longer present Electronically Signed On 04-20-2018 11:10:54 CDT by Robert Lerma [email or web address] <ELECTRONICALLY SIGNED> By: Robert Lerma MD, FAC 04/20/18 1110 57 57 Robert Lerma MD, [facility] /EPI
[2018-04-20 12:00] VITALS: BP 134/69
[2018-04-20 16:00] VITALS: BP 125/76
[2018-04-20 19:50] VITALS: BP 130/83
[2018-04-21 04:25] LABS: HEMATOCRIT 43.7 % (42.0-52.0); MCH 26.9 pg (26.0-34.0); MCV 83.9 fL (80.0-100.0); MPV 9.1 fl. (7.2-11.1); RBC 5.21 mil/uL (4.50-6.00); RDW-CV 16.1 % (10.5-14.5); WBC 20.5 thou/uL (4.0-11.0)
[2018-04-21 04:54] LABS: CALCIUM 9.1 mg/dL (8.5-10.1); CREATININE 1.4 mg/dL (0.6-1.3); MAGNESIUM 2.4 mg/dL (1.8-2.4); POTASSIUM 4.3 mmol/L (3.5-5.1)
[2018-04-21 07:55] VITALS: BP 115/88
[2018-04-21 11:53] VITALS: BP 117/70
--- NOTE | 2018-04-21 12:00 | NUR ---
REC'D REPORT FROM NOC RN, ASSUMED CARE OF PT APPROX 0730. PT IS A&O X4, ABLE TO COMMUNICATE NEEDS TO STAFF. PT C/O HEADACHE 02/07, PRN TYLENOL GIVEN WITH PARTIAL RELIEF. PT DID NOT USE CPAP OVERNIGHT, EDUCATION R/T CPAP/OXYGEN USE AND HEADACHE GIVEN. PT VOICED UNDERSTANDING. SPANISH MEDICAL INTERPRETER IN PLACE, ST. METOPROLOL, CARDIZEN GIVEN PER AUG. O2 SAT >92%, RA. PT DID NOT HAVE O2 IN PLACE WHEN INITIAL ASSESSMENT OF VS OBTAINED. ASSESSMENT COMPLETED, DOCUMENTED. CALL LIGHT WITHIN REACH. HOURLY ROUNDING COMPLETE. AT 1100, PT RESTING WITH CPAP IN USE.
[2018-04-21 14:28] VITALS: BP 117/70
[2018-04-21] MEDS ORDERED: AUGMENTIN 875-1 EACH PO (14:28)
[2018-04-21] MEDS ORDERED: PREDNISONE 10 M10 MG PO (14:31)
--- NOTE | 2018-04-21 15:15 | NUR ---
PT WITH COMPLETE DC ORDER. REVIEWED DISCHARGE INSTRUCTIONS AND MEDICATION LIST. PT VOICED UNDERSTANDING OF FOLLOW UP APPT WITH PCP AND [facility]ARDI[facility]. ANSWERED PT'S QUESTIONS TO PT SATISFACTION. DC'D PT'S IV AND SCHEDULING ADMINISTRATOR. PT IN POSSESSION OF ALL BELONGINGS. PT ACCOMPANIED OFF UNIT WITH NURSING STAFF BY AMBULATING TO FRONT DOOR OF HOSPITAL.
--- NOTE | 2018-04-23 15:13 | CON ---
[address] [address] CONSULTATION Name: FRANCISCO LERNER Room: [address]R#: [id number] Admission: 04/17/18 Attend Phys: Chalino Eason MD Discharge: 04/21/18 Date of : 68 Report #: [id number] THIS REPORT FOR: //name// CC: Chalino Rodriguez DATE OF SERVICE: 04/20/2018 HISTORY OF PRESENT ILLNESS: The patient is a 47-year-old single white male who I was asked to see in the hospital today after he was noted to have an abnormal ECG. The patient has an extensive past medical history. He has had multiple hospitalizations here at [facility]. He actually said he had a blood clot that went into his left wrist years ago. He has a long history of atrial fibrillation. Unfortunately, he has no medical insurance and has been followed at the [facility] in [place], [place]. He has been on diltiazem in the past. The patient actually underwent cardioversion back in 10/2016 and the patient was discharged on metoprolol, Cardizem-CD and Plavix. The patient was admitted here in 08/2017. He was seen by Dr. Fregoso at that time. He was in atrial flutter. He was started on IV Cardizem. The patient previously had been on amiodarone and Xarelto. He was cardioverted again in August. He was found to have evidence of pneumonia. The patient was discharged again on amiodarone and Eliquis. The patient has been followed since that time at [facility] in [place], [place]. The patient was admitted here in January with atrial fibrillation. He ran out of his medications, recommended to discontinue the amiodarone. He has never showed up for appointments in the office. He apparently continues to use methamphetamine. Rate control was recommended. The patient recently has been more short of breath. He has had some chest tightness. He notes some edema. Denied any palpitation or syncope. He came in the hospital 2 days ago and was admitted. He is felt to be having COPD. He was noted to be in atrial flutter. Cardiology consultation was requested. He denied any palpitations, syncope. He currently is receiving Eliquis samples, has not had any bleeding. PAST MEDICAL HISTORY: Otherwise significant for hypertension, glucose intolerance. He does have sleep apnea. CURRENT MEDICATIONS: Include Eliquis, furosemide, metoprolol, metformin. ALLERGIES: He has no known drug allergies. FAMILY HISTORY: His father had atrial fibrillation. SOCIAL HISTORY: He is . Currently lives in [place], [place] by himself. 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 [place] [address] CONSULTATION Name: CLAUDYCHARLESSAJIJUDAH LOPEZWENCESLAO [place] Room: [address]#: [id number] Admission: 04/17/18 Attend Phys: Chalino Eason MD Discharge: 04/21/18 Date of : 68 Report #: [id number] REVIEW OF SYSTEMS: He has had no history of stroke. He uses a nebulizer. No history of peptic ulcer disease. He has had a kidney stone. No cancer, no psychiatric illness. PHYSICAL EXAMINATION: GENERAL: Revealed a middle-aged male, appeared in no acute distress. VITAL SIGNS: He had blood pressure 130/80, pulse 60. He is afebrile. HEENT: He is anicteric. Conjunctivae pink. Mucous membranes are moist. NECK: Veins do not appear distended. CHEST: Revealed expiratory wheezes. CARDIAC: Irregular rhythm. ABDOMEN: Obese. EXTREMITIES: Had no edema. Posterior tibial pulse 1+ bilaterally. SKIN: Cool and dry. NEUROLOGIC: Nonfocal. LABORATORY DATA: His ECG appears to show an atrial flutter. No significant ST or T-wave changes. His workup, his last echocardiogram in 12/2017 suggested an ejection fraction of 40% with biatrial enlargement. He actually had nuclear stress test in 10/2016 that showed no evidence of ischemia, but an ejection fraction of 35%. His echocardiogram done transesophageal in 08/2017 again showed an ejection fraction of 40%. His x-rays so far, he had portable chest x-ray that showed clear lung pineda. CT scan of the chest using the PE protocol when he came in 3 days ago showed no pulmonary embolus or infiltrate. His lab work included sodium 135, creatinine 1.2, troponin 0.06, BNP 396. TSH in August was 3.0. His white blood cell count 12.5, hemoglobin 14. IMPRESSION AND RECOMMENDATIONS: 1. Atrial flutter. At this time, I would aim for rate control only. I would not recommend attempts at repeat cardioversion. I would continue anticoagulation with Eliquis. In fact, the patient does describe a previous embolus to his left arm. The patient has been on metoprolol for rate control. I would add diltiazem. 2. Tobacco abuse. 3. Chronic obstructive pulmonary disease. 4. Cardiomyopathy. 5. Methamphetamine abuse. 6. Obesity. 7. Sleep apnea. <ELECTRONICALLY SIGNED> By: Robert Lerma MD, JACOBO 04/23/18 1513 [id number] Brian Lerma MD, JACOBO /nt
== END 2018-04-21 15:30 | disposition home or self-care (01) | DRG 189 ==
LOC: M.ERS 05:08 → M.TBA-ER 07:11 → M.2W 08:19
PROVIDERS: Emergency Medicine; Family Medicine; ADMIT Internal Medicine
DX: J96.00 Acute respiratory failure, unspecified whether with hypoxia or hypercapnia (principal); J44.1 Chronic obstructive pulmonary disease with (acute) exacerbation; I48.92 Unspecified atrial flutter; I42.9 Cardiomyopathy, unspecified; I11.0 Hypertensive heart disease with heart failure; I50.9 Heart failure, unspecified; G47.30 Sleep apnea, unspecified; E66.9 Obesity, unspecified; F15.10 Other stimulant abuse, uncomplicated; I48.2 Chronic atrial fibrillation; Z87.891 Personal history of nicotine dependence; Z68.37 Body mass index [BMI] 37.0-37.9, adult; Z79.01 Long term (current) use of anticoagulants; Z79.899 Other long term (current) drug therapy; Z82.49 Family history of ischemic heart disease and other diseases of the circulatory system

== ENCOUNTER 2019-03-09 06:47 | Emergency (ER) | payer MEDICAID ==
[~2019-03-09] VITALS: Ht 180.3 cm; Wt 117.9 kg
[2019-03-09] MEDS ORDERED: METFORMIN HCL500 MG PO ×2 (06:59→07:13)
[2019-03-09] MEDS ORDERED: PRINIVIL20 MG PO ×2 (06:59→07:13)
[2019-03-09] MEDS ORDERED: VENTOLIN HFA 1818 GM INH (07:13)
[2019-03-09] MEDS ORDERED: ELIQUIS5 MG PO (07:13)
[2019-03-09] MEDS ORDERED: TOPROL XL50 MG PO (07:13)
[2019-03-09] MEDS ORDERED: LASIX 40 MG TAB40 M2 PO (07:13)
[2019-03-09 07:34] VITALS: BP 148/90
== END 2019-03-09 07:30 | disposition home or self-care (01) ==
LOC: M.ERS 06:47
DX: F41.9 Anxiety disorder, unspecified (principal); Z76.0 Encounter for issue of repeat prescription; R06.02 Shortness of breath; J44.9 Chronic obstructive pulmonary disease, unspecified; I11.0 Hypertensive heart disease with heart failure; I50.9 Heart failure, unspecified; I48.91 Unspecified atrial fibrillation; G47.30 Sleep apnea, unspecified

== ENCOUNTER 2020-02-21 21:10 | Inpatient (IN) | payer OTHER, MEDICAID ==
[~2020-02-21] VITALS: Ht 180.3 cm; Wt 111.6 kg
--- NOTE | ~2020-02-21 | CON ---
[address] [address] CONSULTATION Name: FRANCISCO LERNER Room: [address] Julius#: [id number] Admission: 02/22/20 Attend Phys: Ramona Gao Discharge: Date of : 68 Report #: [id number] THIS REPORT FOR: //name// cc: [facility] - [facility] physician unknown [facility] physician unknown ~ THIS REPORT FOR: //name// CC: [facility] unknown [facility] Tenzin Urrutia DATE OF SERVICE: 02/22/2020 REQUESTING PHYSICIAN: Robert Parikh MD INDICATION FOR CONSULTATION: Acute hypoxemic respiratory failure. HISTORY OF PRESENT ILLNESS: A 49-year-old gentleman with past medical history as mentioned below. This includes a history of smoking as well as methamphetamine and marijuana use. The patient was also positive for opiates on this admission. He does have a history of chronic systolic congestive heart failure with left ventricular ejection fraction previously reported to be around 20-25%. The patient was recently admitted to . He had been transferred there from another hospital. According to the records, he was treated with vancomycin and Zosyn at the other hospital prior to transfer. I am not aware of any antibiotics administered in . While he was in , the patient did have a workup performed. He was noted to have pulmonary emboli as well as pulmonary infarction. He was also suspected of having a left ventricular thrombus. In addition, he was fluid overloaded and was treated with diuresis. The patient is reported to have been discharged on Coumadin. The patient is now admitted with acute abdominal pain overnight, also reported to have had back pain. The patient was in respiratory distress and agitated overnight, had received sedation, also was continuing to be in respiratory distress with a respiratory rate in the mid 40s and a heart rate of around 125-130 at the time of my examination on a BiPAP. He was maintaining O2 saturation with 50% FiO2 with BiPAP. Considering that he was in respiratory distress and obtunded, he was not able to provide any further history or review of systems. I recommended endotracheal intubation, and the patient was endotracheally intubated. Subsequently, he is now therefore being stabilized on the ventilator. PAST MEDICAL HISTORY: Congestive heart failure with reduced left ventricular ejection fraction, bilateral pulmonary emboli, pulmonary infarctions, recently suspected left ventricular thrombus, hypertension, PFO closure, obstructive sleep apnea, on a CPAP at home. Clinical history consistent with COPD, [place] [address] CONSULTATION Name: FRANCISCO LERNER Room: [address]#: [id number] Admission: 02/22/20 Attend Phys: Ramona Gao Discharge: Date of : 68 Report #: [id number] previously diagnosed, atrial fibrillation, hypertension, hyperlipidemia, diabetes. The patient has a history of atrial fibrillation, has been on previous anticoagulation and amiodarone as well. SOCIAL HISTORY: There is an extensive history of smoking, unable to quantify exactly at this time. Also, history of marijuana and amphetamine use. He is positive for opiates on admission, unknown as to whether these were prescribed or street opiates. No known history of alcohol abuse. CURRENT MEDICATIONS: List in [facility] reviewed. HOME MEDICATION LIST: See discussion above, also list in [facility] reviewed. ALLERGIES: No known drug allergies. FAMILY HISTORY: Father also had atrial fibrillation. PHYSICAL EXAMINATION: VITAL SIGNS: He was in respiratory distress on a BiPAP of 18/8 and 50% FiO2. He is maintaining O2 saturation in the high 90s and respiratory rate was around 45 with a heart rate of 125-130 with significantly labored respirations and blood pressure of 130/80. He was afebrile with a temperature of 36.6. Body mass index is elevated to 33. HEENT: Head is normocephalic and atraumatic. Throat examination is limited due to limited patient's cooperation, but no throat erythema is detected. He has a narrow airway. The [employer] with anesthesia did and still tell me that he was an easy intubation. NECK: Does not show raised JVP, asymmetry, mass or lymph nodes. CHEST: Symmetrical expansion on inspection and palpation. On auscultation, breath sounds are bilaterally equal, decreased. I do not hear any added sounds; however, he has accessory muscle use. He is in obvious distress. HEART: Irregular, significant tachycardia noted. ABDOMEN: Mildly distended, nontender. EXTREMITIES: Lower extremities show minimal edema only. There are changes consistent with chronic venous insufficiency. There is no calf tenderness. SKIN: Dry and intact, however. NEUROLOGICAL: He is responding only to painful stimuli. He had; however, recently received sedation. He did move all extremities bilaterally equally and spontaneously with no focal deficits identified. DIAGNOSTIC DATA: The patient did have a chest x-ray done twice and also did have CT of the chest, abdomen and pelvis performed. I reviewed the films as well as report of the chest CT as well as x-rays. We reviewed all of the reports. In summary, there are no pulmonary emboli. There is a suspicion of a left ventricular thrombus. There are bilateral pulmonary infiltrates, which raised the suspicion of a viral pneumonia. Findings are new compared with the [address] [place] [address] CONSULTATION Name: FRANCISCO LERNER Room: [address] MVaneRVane#: [id number] Admission: 02/22/20 Attend Phys: Ramona Gao Discharge: Date of : 68 Report #: [id number] x-ray performed in 2018 and I only have the reports available from and not the films. The patient's lab work including arterial blood gases, CBC as well as chemistries and INR in [facility] reviewed. INR is noted to be 1.8. ASSESSMENT/PLAN: 1. Acute hypoxemic respiratory failure. The patient has been endotracheally intubated. We will sedate him with fentanyl and if needed, propofol and Versed as well. Once he is well sedated, we will obtain arterial blood gas. Post-intubation chest x-ray is also just being performed. We will follow. 2. Pulmonary infiltrates. He has thick orange somewhat hemorrhagic sputum production and we sent off specimen. For now, I am covering him broadly with antibiotics with Zosyn, Levaquin as well as linezolid. Other cultures and serologies have also been ordered. He has ground-glass infiltrates and therefore COVID-19 while negative recently in , needs to be ruled out again. His COVID antigen is negative. PCR is pending. He is in isolation, pending results. 3. Acute pulmonary embolism. We will check his INR now, but unless it is significantly elevated, I intend to place him on an IV heparin infusion. He was on Coumadin upon last discharge. It is not fully clear as to whether he in fact was taking it regularly. 4. Left ventricular thrombus. See discussion above. 5. Chronic obstructive pulmonary disease exacerbation. Solu-Medrol as well as nebulized bronchodilators. 6. History of substance abuse. See discussion above. 7. Abdominal pain. Surgery service also on the case. 8. Obstructive sleep apnea, uses a CPAP at home. 9. Gastrointestinal prophylaxis. Protonix. 10. Hyperglycemia, insulin sliding scale. The patient is critically ill at this time. The total time spent providing critical care to this patient today exceeds 1 hour. By: 1100 1132Ager Stephens MD /nt
[~2020-02-21 21:10] MED LIST changes: +LASIX 40 MG TAB40 M2 PO; +METFORMIN HCL500 MG PO; +PRINIVIL20 MG PO
[2020-02-21 21:33] VITALS: BP 141/92
[2020-02-21 22:04] LABS: HEMATOCRIT 38.6 % (42.0-52.0); HEMOGLOBIN 13.1 gm/dL (14.0-18.0); MCH 27.3 pg (26.0-34.0); MCHC 33.9 g/dL (28.0-37.0); MCV 80.5 fL (80.0-100.0); MPV 8.3 fl. (7.2-11.1); NUCLEATED RBCS 0 /100WBC; PLATELET COUNT* 417 thou/uL (150-400); RDW-CV 17.1 % (10.5-14.5)
[2020-02-21 22:11] LABS: CALCIUM 8.4 mg/dL (8.5-10.1); CREATININE 1.7 mg/dL (0.6-1.3); POTASSIUM 3.6 mmol/L (3.5-5.1)
[2020-02-21 22:29] LABS: ABSOLUTE LYMPHOCYTES 1.6 thou/uL (0.8-5.3); ABSOLUTE MONOCYTES 0.4 thou/uL (0.0-1.2)
[2020-02-21 22:30] LABS: ANISOCYTOSIS 1+; PLATELET ESTIMATE ADEQUATE; POLYCHROMASIA Occasional
[2020-02-21 23:49] LABS: URINE BILIRUBIN NEGATIVE (Negative); URINE BLOOD TRACE (Negative); URINE CLARITY CLEAR; URINE COLOR YELLOW; URINE GLUCOSE-RANDOM 3+ (Negative); URINE KETONES NEGATIVE (Negative); URINE LEUKOCYTES-REFLEX NEGATIVE (Negative); URINE NITRITE-REFLEX NEGATIVE (Negative); URINE PROTEIN 2+ (Negative); URINE SPECIFIC GRAVITY 1.025 (1.005-1.030); URINE UROBILINOGEN 0.2 E.U./dl (0.2-1.0)
[2020-02-22] VITALS (48 sets, daily range): BP systolic 67–198; BP diastolic 47–136
[2020-02-22 00:03] LABS: AMP/METHAMP POSITIVE (Negative); BARBITURATES Negative (Negative); BENZODIAZEPINES Negative (Negative); COCAINE Negative (Negative); METHADONE Negative (Negative); OPIATES POSITIVE (Negative); PCP Negative (Negative); THC POSITIVE (Negative)
[2020-02-22 00:08] LABS: CRYSTALS None Seen /LPF (None Seen); FINE GRANULAR CASTS 0-3 Few /LPF (None Seen); HYALINE CASTS 0-3 Few /LPF (None Seen); MUCUS >6 Heavy strn/LPF (None Seen); SQUAMOUS 0-3 Few /LPF (0-3); URINE RBC 3-10 Few /HPF (0-2); URINE WBC-REFLEX 6-15 Few /HPF (0-5); WBC CLUMPS Few (None Seen)
[2020-02-22 02:34] LABS: INR 1.8; PROTIME 18.1 Seconds (9.20-11.50)
[2020-02-22 05:43] LABS: BE -5.5 mmol/L (-2 to +3); PCO2 39.6 mmHg (35.0-45.0); PO2 60.1 mmHg (75.0-100.0); pH 7.323 (7.340-7.450)
[2020-02-22 08:45] LABS: BE -4.6 mmol/L (-2 to +3); PCO2 39.7 mmHg (35.0-45.0); pH 7.338 (7.340-7.450)
--- NOTE | 2020-02-22 08:53 | NUR ---
PT ARRIVED TO THE UNIT APPROX 0430. CARDIZEM DRIP IN PLACE INFUSING @ 15/HR WITH RATE RANGING FROM 110-120'S. RESPIRATIONS 38. PT ANXIOUS, RESTLESS, IMPULSIVE, TRYING TO SIT ON EDGE OF BED WITH TRIPOD BREATHING. NOTIFIED DR ISAAC (ER) OF PT'S RESPIRATORY STATUS UPON ARRIVAL TO UNIT. ATIVAN, BREATHING TREATMENTS, AND ABG'S OBTAINED. CRITICAL/ABNORMAL ABG RESULTS CALLED TO DR LAMB WELL PT RESPIRATORY STATUS NOT IMPROVING ON CPAP MODE OF BIPAP. ONE TIME ORDER LASIX ALSO GIVEN WELL INTIATE BIPAP SETTINGS. DR ISAAC CALLED TO CHECK ON PT SHORTLY AFTER 0600. NOTIFIED PT STILL IMPULSIVE AND TRYING TO REMOVE BIPAP. ADDITIONAL MEDS ORDERED AND GIVEN TO HELP PT RELAX. DR ISAAC ALSO REPORTED SHE HAD ALSO SPOKEN WITH DR LAMB ABOUT PT'S CONDITION. PT'S RESPIRATORY RATE IN THE 50'S WHEN AWAKE AND SLOWED DOWN TO 40'S WHILE RELAXED FROM MEDICATION AND ON BIPAP. APPLICATION DEVELOPMENT LIAISON NOTIFIED BEFORE END OF SHIFT PT MAY NEED SITTER OR ICU IF BIPAP NOT EFFECTIVE/PT DOESNT TOLERATE. REPORT GIVEN TO DAY RN AND UPDATED CHIEF CLERK AFTER ICU BED ORDER. ALSO NOTIFIED CONSTRUCTION SCHEDULER ER REQUESTED PT'S MEDICAL RECORDS FROM FOR RECENT ADMISSION WITH PE'S.
--- NOTE | 2020-02-22 08:58 | NUR ---
ASSUMED CARE OF PATIENT THIS AM [id number]. PATIENT IN BED WITH EYES CLOSED. RESPIRATIONS 45 TO 50 AND LABORED. HEAT RAT 120S TO 145. PATIENT NOT RESPONSIVE TO VERBAL COMMANDS. TELE SHOWS AFIB WITH RVR. DR LAMB PAGED FOR TRANSFER ORDERS. DR MOSES RETURNED THE CALL. REPORT GIVEN TO ICU NURSE AND PATIENT TRANSFERRED PER BED WITH BIPAP PER RT.
--- NOTE | 2020-02-22 09:37 | EKG ---
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 : 1970 Requested By: Robert Parikh Order Number: [id number] MD: Robert Lerma Measurements Intervals [place] Rate: 155 P: [place]: QRS: -39 QRSD: 89 T: -28 QT: 303 QTc: 487 Interpretive Statements Atrial fibrillation Abnormal R-wave progression, late transition Inferior infarct, old Lateral leads are also involved Compared to ECG 04/19/2018 21:58:36 rate has increased Electronically Signed On 02-22-2020 9:37:07 CDT by Robert Lerma [email or web address] <ELECTRONICALLY SIGNED> By: Robert Lerma MD, FAC 02/22/20 0937 0039 0039 Robert Lerma MD, FAC /EPI
--- NOTE | 2020-02-22 10:04 | EKG ---
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 : 1970 Requested By: Jazmin Ibanez Order Number: [id number] MD: Robert Lerma Measurements Intervals [place] Rate: 121 P: [place]: QRS: -44 QRSD: 89 T: 32 QT: 351 QTc: 498 Interpretive Statements Atrial fibrillation Abnormal R-wave progression, late transition Inferior infarct, old Compared to ECG 02/22/2020 00:39:18 rate has slowed Electronically Signed On 02-22-2020 10:04:13 CDT by Robert Lerma [email or web address] <ELECTRONICALLY SIGNED> By: Robert Lerma MD, [facility] 02/22/20 1004 0757 0757 Robert Lerma MD, [facility] /EPI
[2020-02-22 12:16] LABS: BE -5.5 mmol/L (-2 to +3); PCO2 34.8 mmHg (35.0-45.0); PO2 94.2 mmHg (75.0-100.0); pH 7.358 (7.340-7.450)
[2020-02-22 12:23] LABS: ABSOLUTE BASOPHILS 0.2 thou/uL (0.0-0.2); ABSOLUTE LYMPHOCYTES 0.8 thou/uL (0.8-5.3); ABSOLUTE MONOCYTES 1.6 thou/uL (0.0-1.2); BASOPHILS 0.8 %; HEMATOCRIT 39.6 % (42.0-52.0); HEMOGLOBIN 12.9 gm/dL (14.0-18.0); LYMPHOCYTES 2.8 %; MCH 26.6 pg (26.0-34.0); MCHC 32.6 g/dL (28.0-37.0); MCV 81.5 fL (80.0-100.0); MONOCYTES 5.6 %; MPV 8.6 fl. (7.2-11.1); NUCLEATED RBCS 0 /100WBC; PLATELET COUNT* 360 thou/uL (150-400); POLYS 90.8 %; RBC 4.86 mil/uL (4.50-6.00); RDW-CV 16.9 % (10.5-14.5); WBC 28.7 thou/uL (4.0-11.0)
[2020-02-22 12:36] LABS: APTT 23.3 Seconds (25.0-31.3); INR 1.4; PROTIME 14.4 Seconds (9.20-11.50)
[2020-02-22 12:37] LABS: ALBUMIN 2.8 g/dL (3.4-5.0); CREATININE 1.8 mg/dL (0.6-1.3); MAGNESIUM 1.5 mg/dL (1.8-2.4); PHOSPHORUS* 3.7 mg/dL (2.5-4.9); TOTAL BILIRUBIN 1.4 mg/dL (<0.1-1.0); TOTAL PROTEIN 8.1 g/dL (6.4-8.2)
[2020-02-22 12:38] LABS: POTASSIUM 5.2 mmol/L (3.5-5.1)
--- NOTE | 2020-02-22 12:38 | NUR ---
RIGHT BASILIC VESSEL ACCESSED FOR 5 PANAMANIAN TRIPLE LUMEN PICC. LINE PRE-TRIMMED TO 46CM AND ADVANCED TO THE ZERO VENICE WITH NO RESISTANCE MET. UPPER ARM CIRCUMFERENCE ABOVE INSERTION SITE= 14". SHERLOCK MAGNET SHOWS LINE TRAVELING DOWN, 3CG UNABLE TO DIFFERENTIATE FIBRILLATIONS FROM P WAVES. POST-PROCEDURE CHEST X-RAY SHOWS LINE TERMINATES AT THE CAVOATRIAL JUNCTION. GUIDEWIRE REMOVED, LINE FLUSHED AND INSERTION SITE DRESSED. REPORT GIVEN TO EMERY BROWN.
[2020-02-22 15:01] LABS: CALCIUM 7.8 mg/dL (8.5-10.1); CREATININE 1.5 mg/dL (0.6-1.3)
[2020-02-22 15:02] LABS: POTASSIUM 3.9 mmol/L (3.5-5.1)
--- NOTE | 2020-02-22 15:41 | 2DMMODE ---
[place] [address] 2 D/M-MODE ECHOCARDIOGRAM Name: FRANCISCO LERNER Room: [address] Julius#: [id number] Admission: 02/22/20 Attend Phys: Tenzin Urrutia Discharge: Date of : 68 Date of Service: 02/22/20 1541 Report #: [id number] THIS REPORT FOR: cc: [facility] - Clinic physician unknown [facility] - Clinic physician unknown Robert Lerma MD [facility] ~ APPROVED REPORT Study performed: 02/22/2020 14:57:34 EXAM: Comprehensive 2D, Doppler, and color-flow Echocardiogram Patient Location: In-Patient Room #: 001 Status: routine BSA: 2.26 HR: 114 bpm BP: 118/76 mmHg Rhythm: Atrial Fibrillation Other Information Study Quality: Excellent Indications Atrial Fibrillation 2D Dimensions IVSd: 8.76 (7-11mm) LVOT Diam: 20.32 (18-24mm) LVDd: 56.76 mm PWd: 10.26 (7-11mm) Ascending Ao: 34.94 (22-36mm) LVDs: 44.21 (25-40mm) Aortic Root: 36.15 mm Volumes Left Atrial Volume (Systole) LA ESV Index: 42.50 mL/m2 Aortic Valve AoV Peak Jerzy.: 1.20 m/s AO Peak Gr.: 5.74 mmHg LVOT Max P.01 mmHg AO Mean Gr.: 3.63 mmHg LVOT Mean P.27 mmHg LVOT Max V: 1.00 m/s AO V2 VTI: 15.85 cm LVOT Mean V: 0.69 m/s MAGALY (VTI): 2.65 cm2 LVOT V1 VTI: 12.95 [place] [address] 2 D/M-MODE ECHOCARDIOGRAM Name: FRANCISCO LERNER Room: [address]#: [id number] Admission: 02/22/20 Attend Phys: Tenzin Urrutia Discharge: Date of : 68 Date of Service: 02/22/20 1541 Report #: [id number] TDI Medial E' Jerzy.: 0.10 m/s Lateral E' Jerzy.: 0.18 m/s Pulmonary Valve PV Peak Jerzy.: 0.96 m/s PV Peak Gr.: 3.71 mmHg Left Ventricle Left ventricle is mildly dilated. There is global hypokinesis of the left ventricle. There is normal left ventricular wall thickness. Left ventricular systolic function is severely decreased. Left ventricular thrombus is present. LVEF is 20-25%. This study is not technically sufficient to allow evaluation of the LV diastolic function due to atrial fibrillation. Right Ventricle The right ventricle is normal size. The right ventricular systolic function is normal. Atria Left atrium is mild to moderately dilated. The right atrium size is normal. Aortic Valve The aortic valve is normal in structure. No aortic regurgitation is present. There is no aortic valvular stenosis. Mitral Valve The mitral valve is normal in structure. There is no mitral valve regurgitation noted. No evidence of mitral valve stenosis. Tricuspid Valve The tricuspid valve is normal in structure. Unable to assess PA pressure. Trace tricuspid regurgitation. Pulmonic Valve The pulmonary valve is normal in structure. There is no pulmonic valvular regurgitation. Great Vessels The aortic root is normal in size. IVC is normal in size and collapses >50% with inspiration. Pericardium There [place] [address] 2 D/M-MODE ECHOCARDIOGRAM Name: FRANCISCO LERNER Room: [address] [place]#: [id number] Admission: 02/22/20 Attend Phys: Tenzin Urrutia Discharge: Date of : 68 Date of Service: 02/22/20 1541 Report #: [id number] <Conclusion> LVEF is 20-25%. Left ventricular thrombus is present. Left atrium is mild to moderately dilated. <ELECTRONICALLY SIGNED> By: Robert Lerma MD, [facility] 02/22/20 1541 1541 154 Robert Lerma MD, FACC /INF
--- NOTE | 2020-02-22 16:35 | NUR ---
ICU rounds: Pt transferred down from [facility], Pt now intubated and sedated. Covid pending. Electrolytes off. On cardizem gtt. On bipap. Negron. Pt is also withdrawing from meth. CM left VM for Pt's mother to discuss living situation.
--- NOTE | 2020-02-22 18:10 | NUR ---
I RECEIVED THE PATIENT A TRANSFER FROM [facility] ON TELEMETRY AROUND 0900. HE IS HARD TO AROUSE, BUT RESTING. PREVIOUS NURSE SAYS PATIENT IS A & O X3. HE WILL BE BEDREST IN THE ICU. BED IS IN THE LOW LOCKED POSITION AND CALL LIGHT IS IN REACH. HOURLY ROUNDING IS COMPLETED AND PATIENT NEEDS ARE MET. PAIN IS DENIED. HE REMAINS NPO AND ISOLATION IS MAINTAINED WHILE TEST RESULTS ARE PENDING. MEDICAL RECORDS WERE RECEIVED FROM AND PLACED IN THE CHART. A CARLOS WAS PLACED AND 1650 WAS TAKEN OFF. PATIENT WAS INTUBATED, OG WAS PLACED AND PLACEMENT WAS VERIFIED BY XRAY. MRSA SWAB, URINE, AND BLOOD WERE SENT TO LAB. SPUTUM WAS ALSO SENT. DRIPS HAVE BEEN CHARTED ON. HIS MOTHER CALLED AND VERIFIED THAT HE LIVES AT HOME ALONE. ACHS WAS MONITORED WELL CARDIAC RHYTHM. PICC WAS PLACED BY THE INFUSION NURSE. MOM STATES THAT HE HAD 'TEETH KNOCKED OUT AT [facility]' WHEN THEY INTUBATED HIM. ABDOMEN IS DISTENDED AND HARD. HE HAS PVD, SO NO SCD'S. OG IS HOOKED UP TO LIS. SOFT RESTRAINTS WERE PLACED FOR THE PATIENT'S SAFETY WHILE INTUBATED. WILL CONTINUE TO MONITOR. VITAL SIGNS ARE BETTER.
[2020-02-23] VITALS (60 sets, daily range): BP systolic 64–156; BP diastolic 36–91
[2020-02-23 06:26] LABS: ABSOLUTE BASOPHILS 0.2 thou/uL (0.0-0.2); ABSOLUTE LYMPHOCYTES 0.5 thou/uL (0.8-5.3); ABSOLUTE MONOCYTES 1.4 thou/uL (0.0-1.2); ABSOLUTE NEUTROPHILS 21.5 thou/uL (1.6-8.1); BASOPHILS 0.9 %; HEMATOCRIT 35.4 % (42.0-52.0); HEMOGLOBIN 11.6 gm/dL (14.0-18.0); LYMPHOCYTES 2.3 %; MCH 26.6 pg (26.0-34.0); MCHC 32.9 g/dL (28.0-37.0); MCV 80.9 fL (80.0-100.0); MONOCYTES 5.7 %; MPV 8.7 fl. (7.2-11.1); NUCLEATED RBCS 0 /100WBC; PLATELET COUNT* 258 thou/uL (150-400); POLYS 91.1 %; RBC 4.37 mil/uL (4.50-6.00); RDW-CV 17.3 % (10.5-14.5); WBC 23.6 thou/uL (4.0-11.0)
[2020-02-23 06:34] LABS: INR 1.6; PROTIME 16.1 Seconds (9.20-11.50)
[2020-02-23 06:40] LABS: ALBUMIN 2.1 g/dL (3.4-5.0); CALCIUM 7.7 mg/dL (8.5-10.1); CREATININE 1.4 mg/dL (0.6-1.3); MAGNESIUM 1.8 mg/dL (1.8-2.4); POTASSIUM 4.1 mmol/L (3.5-5.1); TOTAL BILIRUBIN 0.9 mg/dL (<0.1-1.0); TOTAL PROTEIN 6.9 g/dL (6.4-8.2)
[2020-02-23 06:53] LABS: PHOSPHORUS* 2.4 mg/dL (2.5-4.9)
--- NOTE | 2020-02-23 07:40 | NUR ---
ASSUMED PATIENT CARE AT 1900. ASSESSMENTS COMPLETED CHARTED. CARDIAC MONITORING IN PLACE. PATIENT IS AFIB ON THE MONITOR AND REMAINS ON THE CARDIZEM DRIP. CARDIOLOGY CALLED ABOUT PATIENT HR JUMPING INTO THE 120S INTERMITTENTLY. SPOKE WITH PHYSICIAN, NO NEW ORDERS RECEIVED. BED LOCKED AND IN LOWEST POSITION. FALL PRECAUTIONS IN PLACE FOR PATIENT SAFETY.
[2020-02-23 08:31] LABS: BE -0.7 mmol/L (-2 to +3); PO2 84.3 mmHg (75.0-100.0)
--- NOTE | 2020-02-23 11:39 | EKG ---
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: : 1970 Requested By: Robert Lerma Order Number: [id number] Reading MD: Jeremy Carr Measurements Intervals [place] Rate: 112 P: [place]: QRS: -18 QRSD: 96 T: 206 QT: 354 QTc: 484 Interpretive Statements Atrial fibrillation Borderline left axis deviation Low voltage, extremity leads Inferior infarct, old Abnormal R-wave progression, late transition Nonspecific T abnrm, anterolateral leads Borderline prolonged QT interval Compared to ECG 02/22/2020 07:57:03 Low QRS voltage now present Electronically Signed On 02-23-2020 11:39:55 CDT by Jeremy Carr [email or web address] <ELECTRONICALLY SIGNED> By: Jeremy Carr MD, FAC 02/23/20 1139 0759 0759 Jeremy Carr MD, [facility] /EPI
[2020-02-23 13:52] LABS: CALCIUM 7.7 mg/dL (8.5-10.1); CREATININE 1.1 mg/dL (0.6-1.3); POTASSIUM 3.9 mmol/L (3.5-5.1)
--- NOTE | 2020-02-23 15:05 | NUR ---
ICU rounds-On vent, possible weanging trial tomorrow. Covid negative. Card, renal and pulm consults. Pt had afib yesterday. CM spoke with Pt's mom via phone. Mom states that over the past month, Pt has been to [facility] and now [facility], d/t cardiac/pulm issues. Mom reports that they thought Pt was going to , Pt's son flew in from the . Per mom, when Pt dc from , he dc to her home, was taking meds appropriately, but after 3 days of being there, he started feeling better and went home. Per mom, Pt did not get out of bed for 3-4 days, which resulted in his admission to [facility]. No home o2. Per mom, Pt has a bipap, ?compliance. Mom is concerned that Pt is not able to appropriately manage his medications at home. Following.
--- NOTE | 2020-02-23 16:17 | CON ---
[address] [address] CONSULTATION Name: FRANCISCO LERNER Room: [address] [place] M.R.#: [id number] Admission: 02/22/20 Attend Phys: Ramona Gao Discharge: Date of : 68 Report #: [id number] THIS REPORT FOR: //name// cc: [facility] - [facility] physician unknown [facility] physician unknown ~ THIS REPORT FOR: //name// CC: [facility] unknown [facility] Tenzin Urrutia DATE OF SERVICE: 02/22/2020 CARDIOLOGY CONSULTATION HISTORY OF PRESENT ILLNESS: The patient is a 49-year-old white male who I was asked to see in the hospital today after he was noted to be in atrial fibrillation. The history is obtained from some old records. Currently, there are no family members available. The patient is not responding at this time. He apparently has a history of atrial fibrillation with previous PFO closure. The patient had been on amiodarone in the past as well as Eliquis. He has not been very compliant in the past. He was last seen in the Cardiology Clinic 2 years ago. The patient was last admitted here in 03/2018 with acute shortness of breath. He has a history of methamphetamine use. He has a history of permanent atrial fibrillation. He was started on diltiazem to control the rate. It was recommended that he not be cardioverted at that time. The patient was actually seen in the Emergency Room last March after he had ran out of all his medications while in [place]. He had been on metoprolol and Eliquis at that time. The patient is apparently followed at [facility]. The patient was brought to the Emergency Room last night by a private vehicle, complaining of abdominal pain. He does have a history of kidney stones. PAST MEDICAL HISTORY: He has had previous closure of a PFO. He has a history of hypertension. CURRENT MEDICATIONS: Include Eliquis, Lasix, metformin, metoprolol, albuterol inhaler. ALLERGIES: He has no known drug allergies. FAMILY HISTORY: His father had atrial fibrillation. SOCIAL HISTORY: He has been a smoker. He has used methamphetamine in the past. No history of alcohol abuse. REVIEW OF SYSTEMS: There is no history of stroke, liver disease, [place] [address] CONSULTATION Name: FRANCISCO LERNER [place] Room: [address]#: [id number] Admission: 02/22/20 Attend Phys: Raomna Gao Discharge: Date of : 68 Report #: [id number] disease, cancer, psychiatric illness, although he has been hospitalized for substance abuse in the past at [facility], at which time he was given a drug patch. He apparently has an IV port in place for unknown reason. PHYSICAL EXAMINATION: GENERAL: Revealed a middle-aged male, lying in bed, appeared in no distress. VITAL SIGNS: Blood pressure is 150/100, pulse is 110. He is afebrile. HEENT: He was anicteric. Conjunctivae pale. Mucous membranes appear dry. CHEST: Clear to auscultation. CARDIOVASCULAR: Irregular rhythm. ABDOMEN: Soft. EXTREMITIES: Had trace edema. SKIN: Cool and dry. NEUROLOGIC: Nonfocal. DIAGNOSTIC DATA: His ECG on admission showed atrial fibrillation with an increased ventricular response rate, nonspecific T-wave changes. The patient had an echocardiogram in 2018 that showed ejection fraction of 40%, left ventricular hypertrophy, biatrial enlargement. His workup in the Emergency Room last night, he had a CT scan of the abdomen because of his abdominal pain that showed a nonspecific lesion in the spleen. He had a chest x-ray that showed a left peripheral mid lung mass, cardiomegaly. LABORATORY WORK: Sodium 133, potassium 3.6, creatinine 1.7, albumin 3.1. Troponin 0.24. BNP 396. His urine drug screen is positive for opiates and marijuana as well as methamphetamine. White blood cell count 18.0, hemoglobin 13.1. IMPRESSION AND RECOMMENDATIONS: 1. Atrial fibrillation. Rate controlled with beta-shanna. I would hold off anticoagulation at this time because of his abdominal discomfort. 2. History of cardiomyopathy. Possibly related to substance abuse. 3. Tobacco abuse. 4. History of illicit drug use. 5. Abdominal pain. Workup ongoing. <ELECTRONICALLY SIGNED> By: Robert Lerma MD, [facility] 02/23/20 1617 0843 [id number] Lerma MD, FACC /nt
[2020-02-23 17:43] LABS: CALCIUM 7.3 mg/dL (8.5-10.1); CREATININE 1.3 mg/dL (0.6-1.3); MAGNESIUM 2.1 mg/dL (1.8-2.4); POTASSIUM 3.7 mmol/L (3.5-5.1)
[2020-02-24] VITALS (76 sets, daily range): BP systolic 71–133; BP diastolic 36–78
[2020-02-24 02:44] LABS: HEMATOCRIT 32.8 % (42.0-52.0); HEMOGLOBIN 10.7 gm/dL (14.0-18.0); MCH 26.5 pg (26.0-34.0); MCHC 32.6 g/dL (28.0-37.0); MCV 81.2 fL (80.0-100.0); MPV 8.7 fl. (7.2-11.1); NUCLEATED RBCS 0 /100WBC; PLATELET COUNT* 235 thou/uL (150-400); RBC 4.04 mil/uL (4.50-6.00); RDW-CV 16.9 % (10.5-14.5); WBC 18.2 thou/uL (4.0-11.0)
[2020-02-24 03:02] LABS: ALBUMIN 2.4 g/dL (3.4-5.0); CALCIUM 8.2 mg/dL (8.5-10.1); CREATININE 1.4 mg/dL (0.6-1.3); MAGNESIUM 2.1 mg/dL (1.8-2.4); POTASSIUM 4.1 mmol/L (3.5-5.1); TOTAL BILIRUBIN 0.8 mg/dL (<0.1-1.0); TOTAL PROTEIN 6.9 g/dL (6.4-8.2)
[2020-02-24 05:25] LABS: ABSOLUTE LYMPHOCYTES 0.4 thou/uL (0.8-5.3); ABSOLUTE MONOCYTES 1.3 thou/uL (0.0-1.2); ABSOLUTE NEUTROPHILS 16.6 thou/uL (1.6-8.1); ANISOCYTOSIS 1+; HYPOCHROMASIA Occasional; PLATELET ESTIMATE ADEQUATE; POIKILOCYTOSIS 1+
[2020-02-24 12:43] LABS: BE -0.8 mmol/L (-2 to +3); PCO2 VENOUS 38.7 mmHg (41.0-51.0); PO2 VENOUS 34.9 mmHg (35.0-45.0)
--- NOTE | 2020-02-24 14:06 | NUR ---
ICU rounds: Pt just extubated, awake and alert.
--- NOTE | 2020-02-24 19:32 | NUR ---
PT EXTUBATED AT 1245-TOLERATED FINE. A/OX4, 4LNC, UP TO CHAIR FOR DINNER-ASSIST X1, VITAL SIGNS STABLE, NO COMPLAINTS OF PAIN. BEDSIDE SWALLOW PASSED-PREVEZ UPDATED-DIET ORDERED, TOLERATED DINNER FAIR.
--- NOTE | 2020-02-24 22:02 | NUR ---
HEART RATE AND RHYTHM 140'S AFIB POST BREATHING TREATMENT. RATE AND RHYTHM STAYED ELEVATED FOR 2 HOURS AFTER TREATMENT, PAGED CARDIOLOGY. ORDERS RECIEVED TO GIVE METOPROLOL AND DIGOXIN. RATE STILL ELEVATED OVER 100 BUT MORE CONTROLLED. HR 100-106. BP STABLE. WCTM
--- NOTE | 2020-02-24 22:44 | NUR ---
PULLED R UPPER ARM PICC LINE BACK 4 CM PER XRAY RECOMMENDATION. AWAITING FOLLOWUP FOR CONFIRMATION.
[2020-02-25] VITALS (43 sets, daily range): BP systolic 125–149; BP diastolic 71–103
[2020-02-25 05:14] LABS: ABSOLUTE EOSINOPHILS 0.1 thou/uL (0.0-0.7); ABSOLUTE LYMPHOCYTES 0.5 thou/uL (0.8-5.3); ABSOLUTE MONOCYTES 0.8 thou/uL (0.0-1.2); ABSOLUTE NEUTROPHILS 17.5 thou/uL (1.6-8.1); BASOPHILS 0.1 %; EOSINOPHILS 0.3 %; HEMATOCRIT 33.6 % (42.0-52.0); LYMPHOCYTES 2.8 %; MCH 26.4 pg (26.0-34.0); MCHC 32.8 g/dL (28.0-37.0); MCV 80.5 fL (80.0-100.0); MONOCYTES 4.3 %; MPV 8.7 fl. (7.2-11.1); NUCLEATED RBCS 0 /100WBC; PLATELET COUNT* 280 thou/uL (150-400); POLYS 92.5 %; RBC 4.17 mil/uL (4.50-6.00); RDW-CV 17.1 % (10.5-14.5); WBC 18.8 thou/uL (4.0-11.0)
[2020-02-25 05:32] LABS: INR 1.2
[2020-02-25 05:55] LABS: ALBUMIN 2.2 g/dL (3.4-5.0); CALCIUM 8.7 mg/dL (8.5-10.1); MAGNESIUM 2.3 mg/dL (1.8-2.4); POTASSIUM 3.7 mmol/L (3.5-5.1); TOTAL BILIRUBIN 0.9 mg/dL (<0.1-1.0); TOTAL PROTEIN 7.3 g/dL (6.4-8.2)
--- NOTE | 2020-02-25 07:30 | NUR ---
ASSESSMENTS CHARTED. PATIENT'S HR AND RHYTHM LABILE, RATES UP TO 150'S. CALLED CARDIOLOGY AND OBTAINED ORDERS FOR MEDICATION ADMINSTRATION. STAYED ON BIPAP FOR ABOUT 5 HOURS, TOLERATES NC AT 4L WELL. AFIB EXACERBATED AFTER BREATHING TREATMENT ADMINISTRATION. FURTHER TREATMENTS HELD THROUGHOUT THE NIGHT. RESPIRATORY STATUS STABLE, NO DISTRESS, NO TROUBLE BREATHING, NO HYPOXIC EPISODES.
--- NOTE | 2020-02-25 15:07 | NUR ---
ICU rounds: Bipap with sleep. Head CT today. Continue on hep gtt. Pt complains of abd and generalized pain. Following.
[2020-02-25 16:03] LABS: CALCIUM 9.3 mg/dL (8.5-10.1); CREATININE 1.1 mg/dL (0.6-1.3); POTASSIUM 3.9 mmol/L (3.5-5.1)
--- NOTE | 2020-02-25 18:10 | NUR ---
PT IS A/O BUT DROWSY THROUGHOUT THE SHIFT.VSS.C/O GENERALIZED/ABDOMINAL PAIN-MANAGED WELL WITH MEDICATIONS.PT HAS HAD N/V-MEDICATIONS GIVEN.POOR APPETITE.CT OF HEAD COMPLETED.HEPARIN INFUSING PER DVT PROTOCOL.PT HAD VISITOR THIS AFTERNOON-UPDATED ON CONDITION OF PT.CALL LIGHT AND FALL PRECAUTIONS IN PLACE.WILL CONTINUE TO MONITOR FOR DURATION OF SHIFT.
--- NOTE | 2020-02-25 23:10 | NUR ---
REPORT GIVEN TO STEPHANIE MURRAY FOR CONTINUED CARE.
[2020-02-26] VITALS: BP 144/90
[2020-02-26 04:00] VITALS: BP 138/90
[2020-02-26 05:10] LABS: ABSOLUTE EOSINOPHILS 0.1 thou/uL (0.0-0.7); ABSOLUTE LYMPHOCYTES 0.5 thou/uL (0.8-5.3); ABSOLUTE MONOCYTES 0.6 thou/uL (0.0-1.2); ABSOLUTE NEUTROPHILS 16.4 thou/uL (1.6-8.1); BASOPHILS 0.1 %; EOSINOPHILS 0.4 %; HEMATOCRIT 36.3 % (42.0-52.0); HEMOGLOBIN 11.6 gm/dL (14.0-18.0); MCH 25.9 pg (26.0-34.0); MONOCYTES 3.2 %; MPV 9.4 fl. (7.2-11.1); NUCLEATED RBCS 1 /100WBC; PLATELET COUNT* 339 thou/uL (150-400); POLYS 93.3 %; RBC 4.48 mil/uL (4.50-6.00); RDW-CV 17.5 % (10.5-14.5); WBC 17.5 thou/uL (4.0-11.0)
[2020-02-26 05:35] LABS: ALBUMIN 2.2 g/dL (3.4-5.0); CALCIUM 9.1 mg/dL (8.5-10.1); CREATININE 1.1 mg/dL (0.6-1.3); MAGNESIUM 2.2 mg/dL (1.8-2.4); POTASSIUM 4.5 mmol/L (3.5-5.1); TOTAL BILIRUBIN 0.7 mg/dL (<0.1-1.0); TOTAL PROTEIN 7.4 g/dL (6.4-8.2)
--- NOTE | 2020-02-26 06:40 | NUR ---
Received pt from ICU at 2330. Pt AOX4, up with assist. Pt on 2L NC, Bipap was on overnight. Pt complains of abdominal pain rated 7. Pain meds given per mar with partial relief. Pt on heparin drip. Appt therapeutic at 0400. Pt BS check Q6. Pt afib on tele on upper 90's. Negron cath intact. Call light within reach, hourly rounding, will continue to monitor.
[2020-02-26 07:30] VITALS: BP 134/93
--- NOTE | 2020-02-26 11:31 | NUR ---
Pt moved up from ICU. Using bipap PRN. Pt on 2L of o2, will need to test prior to dc for possible home o2 needs. CM to provide Pt will community resources for drug abuse. Anticipate dc in a few days. Following.
[2020-02-26 14:06] VITALS: BP 152/80
[2020-02-26 16:00] VITALS: BP 135/93
[2020-02-26 20:00] VITALS: BP 131/84
[2020-02-27 00:22] VITALS: BP 123/58
[2020-02-27 04:24] VITALS: BP 120/60
[2020-02-27 04:52] LABS: PROTIME 30.6 Seconds (9.20-11.50)
[2020-02-27 05:02] LABS: INR 3.1
--- NOTE | 2020-02-27 06:10 | NUR ---
ASSUMED CARE OF PT AFTER REPORT AT 1930. PT A&OX4. VSS. PHYSICAL ASSESSMET COMPLETED AND CHARTED. PT ON O2 AT 3L NC. PT REFUSED BIPAP LAST NIGHT EVEN AFTER EDUCATION. PT COMPLAINED OF GENERALIZED BODY PAIN-MED GIVEN PER AUG. PT WITH CARLOS TO DEPENDENT DRAIN. PT INR 3.2 THIS AM-STOPPED HEPARIN DRIP AT 0530. PT ABLE TO SLEEP WELL ON BED. CALL LIGHT WITHIN REACH.
[2020-02-27 08:17] LABS: ANISOCYTOSIS 1+; PLATELET ESTIMATE ADEQUATE
[2020-02-27 08:52] LABS: HEMATOCRIT 36.3 % (42.0-52.0); HEMOGLOBIN 11.6 gm/dL (14.0-18.0); MCH 25.9 pg (26.0-34.0); MPV 9.4 fl. (7.2-11.1); PLATELET COUNT* 339 thou/uL (150-400); RBC 4.48 mil/uL (4.50-6.00); RDW-CV 17.5 % (10.5-14.5); WBC 17.5 thou/uL (4.0-11.0)
[2020-02-27 09:00] LABS: ABSOLUTE LYMPHOCYTES 1.1 thou/uL (0.8-5.3); ABSOLUTE MONOCYTES 0.7 thou/uL (0.0-1.2); ABSOLUTE NEUTROPHILS 15.8 thou/uL (1.6-8.1)
[2020-02-27 12:04] VITALS: BP 138/87
[2020-02-27 17:16] VITALS: BP 116/73
--- NOTE | 2020-02-27 18:01 | NUR ---
PT AMBULATED OHARA WITH PT TODAY AND TOLERATING PO WELL. PRGOGRESSING TOWARDS GOALS. WILL CONTINUE TO ASSESS.
[2020-02-27 20:00] VITALS: BP 112/75
[2020-02-28 00:27] VITALS: BP 134/80
[2020-02-28 04:31] VITALS: BP 140/80
[2020-02-28 04:34] LABS: ABSOLUTE LYMPHOCYTES 0.5 thou/uL (0.8-5.3); ABSOLUTE MONOCYTES 0.7 thou/uL (0.0-1.2); ABSOLUTE NEUTROPHILS 8.2 thou/uL (1.6-8.1); BASOPHILS 0.3 %; HEMATOCRIT 36.7 % (42.0-52.0); LYMPHOCYTES 5.7 %; MCH 26.1 pg (26.0-34.0); MCHC 32.8 g/dL (28.0-37.0); MCV 79.5 fL (80.0-100.0); MONOCYTES 7.8 %; MPV 8.1 fl. (7.2-11.1); NUCLEATED RBCS 0 /100WBC; PLATELET COUNT* 269 thou/uL (150-400); POLYS 86.2 %; RBC 4.61 mil/uL (4.50-6.00); RDW-CV 16.9 % (10.5-14.5); WBC 9.5 thou/uL (4.0-11.0)
[2020-02-28 04:42] LABS: PROTIME 58.8 Seconds (9.20-11.50)
[2020-02-28 04:51] LABS: CALCIUM 8.1 mg/dL (8.5-10.1); CREATININE 1.1 mg/dL (0.6-1.3); POTASSIUM 3.7 mmol/L (3.5-5.1)
[2020-02-28 04:56] LABS: INR 6.2
--- NOTE | 2020-02-28 07:57 | NUR ---
ASSUMED CARE OF PT AFTER REPORT AT 1930. PT A&OX4. VSS. PHYSICAL ASSESSMENT COMPLETED AND CHARTED. PT ON O2 AT 1L NC/BIPAP AT HS. PT TRACING AFIB/PVC ON TELE. PT COMPLAINED OF ABDOMINAL PAIN-MED GIVEN PER AUG. PT WITH CRITICAL INR THIS AM-DR ROCHA MADE AWARE. COORDINATE WITH PHARMACY DEANDRA TO HOLD COUMADIN. PT ABLE TO SLEEP WELL ON BED. CALL LIGHT WITHIN REACH.
[2020-02-28 08:21] VITALS: BP 139/86
[2020-02-28 12:00] VITALS: BP 136/85
[2020-02-28 16:00] VITALS: BP 130/76
--- NOTE | 2020-02-28 18:02 | NUR ---
PT AOx4. Pt is up ad swapnil in room, some weakness noted. Pt ST on monitor, receiving metoprolol and dig for HR control. Pt c/o severe abd pain today, KUB done and gen surgery consulted. Pt put on cld until surgeon follows up. Pt receiving PO norco and PO ativan for pain and anxiety. Pt on room air and de [place] dc'd today. Voiding per urinal without any difficulties. Will continue to monitor
[2020-02-28 20:00] VITALS: BP 134/80
[2020-02-29] VITALS: BP 131/93
[2020-02-29 04:00] VITALS: BP 133/87
[2020-02-29 04:59] LABS: ABSOLUTE LYMPHOCYTES 0.8 thou/uL (0.8-5.3); ABSOLUTE MONOCYTES 1.2 thou/uL (0.0-1.2); ABSOLUTE NEUTROPHILS 15.9 thou/uL (1.6-8.1); BASOPHILS 0.1 %; HEMATOCRIT 41.3 % (42.0-52.0); HEMOGLOBIN 13.4 gm/dL (14.0-18.0); LYMPHOCYTES 4.5 %; MCH 25.7 pg (26.0-34.0); MCHC 32.4 g/dL (28.0-37.0); MCV 79.3 fL (80.0-100.0); MONOCYTES 6.9 %; NUCLEATED RBCS 0 /100WBC; PLATELET COUNT* 306 thou/uL (150-400); POLYS 88.5 %; RBC 5.21 mil/uL (4.50-6.00); RDW-CV 17.5 % (10.5-14.5); WBC 17.9 thou/uL (4.0-11.0)
[2020-02-29 05:06] LABS: ALBUMIN 1.9 g/dL (3.4-5.0); CREATININE 1.1 mg/dL (0.6-1.3); POTASSIUM 3.9 mmol/L (3.5-5.1); TOTAL BILIRUBIN 0.7 mg/dL (<0.1-1.0); TOTAL PROTEIN 5.9 g/dL (6.4-8.2)
[2020-02-29 05:27] LABS: PROTIME 35.7 Seconds (9.20-11.50)
[2020-02-29 05:38] LABS: INR 3.7
--- NOTE | 2020-02-29 05:50 | NUR ---
ASSUMED CARE OF PT AFTER REPORT AT 1930. PT A&OX4. VSS. PHYSICAL ASSESSMENT COMPLETED AND CHARTED. PT TRACING AFIB WITH HR OF 150'S-160'S AT START OF THE SHIFT, VERY ANXIOUS AND COMPLAINING OF ABDOMINAL PAIN. REASSURED PT AND MEDS GIVEN PER MAR. PT CALMED DOWN & CLAIMED PARTIAL RELIEF OF ABDOMINAL PAIN. PT O2 SAT 88-89% PER RT AND PLACED PT ON 1L NC/BIPAP AT HS. PT ABLE TO SLEEP WELL ON BED. CALL LIGHT WITHIN REACH.
[2020-02-29 08:00] VITALS: BP 120/87
--- NOTE | 2020-02-29 10:00 | NUR ---
RECIEVED REPORT AROUND 714. ASSUMED CARE. VS AND ASSESSMENT CHARTED. IV INTACT, PICC RIGHT UPPER ARM TRIPLE LUMEN. REPORTED PAIN OF 5 IN THE ABDOMEN. HAD ABDOMINAL XRAY SERIES THIS MORNING. HEART MONITOR ATTCHED AT AFIB. PT LYING IN BED. HAND ON ABDOMAN. PAIN PILL GIVEN PER AUG. PT WORKED WITH HIM. PT CURRENTLY IN CHAIR. CALL LIGHT WITHIN REACH. WILL CONTINUE TO MONITOR.
[2020-02-29 12:00] VITALS: BP 122/68
--- NOTE | 2020-02-29 13:45 | NUR ---
Anticipate dc to home tomorrow. CM to provide community resources for drug use at dc. Pt will need an exercise oxemetry at dc if he is still needing o2. Per , plan to get Pt's bowels regulated prior to dc. Following.
[2020-02-29 16:40] VITALS: BP 120/80
--- NOTE | 2020-02-29 18:20 | NUR ---
SURGERY SAW PT THIS AM. PT TOLD THEM HAS NOT HAD A BM NOR FLATULENCE. SURGERY ORDERED NG PLACEMENT. PT HAD A MODERATE SOFT UNFORMED BM THIS AFTERNOON AND STATES HE FEELS MUCH BETTER. SPOKE WITH REYES WITH DR BOLIVAR. ORDERS TO HOLD NG TUBE PLACEMENT AT THIS TIME. PT HAD AN ADDITIONAL BM THIS EVENING. PAIN MEDICATION PER AUG. MOM CAME TO VISIT THIS SHIFT. QUESTIONS WERE ANSWERED. HOURLY ROUNDING PERFORMED. PT TOLERATING CLEAR LIQUIDS WELL. CALL LIGHT WITHIN REACH. WILL CONTINUE TO MONITOR.
[2020-02-29 20:10] VITALS: BP 122/72
[2020-03-01] VITALS: BP 116/74; BP 119/81
[2020-03-01 04:00] VITALS: BP 153/89
[2020-03-01 06:52] LABS: HEMATOCRIT 40.6 % (42.0-52.0); HEMOGLOBIN 13.4 gm/dL (14.0-18.0); MCH 25.9 pg (26.0-34.0); MCHC 32.9 g/dL (28.0-37.0); MCV 78.7 fL (80.0-100.0); MPV 8.1 fl. (7.2-11.1); NUCLEATED RBCS 0 /100WBC; PLATELET COUNT* 277 thou/uL (150-400); RBC 5.16 mil/uL (4.50-6.00); RDW-CV 17.1 % (10.5-14.5); WBC 21.4 thou/uL (4.0-11.0)
--- NOTE | 2020-03-01 06:57 | NUR ---
PT CARE ASSUMED AT 1930. ALERT AND ORIENTED X4. C/O PAIN, MEDICATION GIVEN PER EMAR. CALL LIGHT WITHIN REACH AND BED IN LOW POSITION. HOURLY ROUNDING DONE FOR PT SAFETY.
[2020-03-01 06:59] LABS: PROTIME 20.1 Seconds (9.20-11.50)
[2020-03-01 07:11] LABS: ALBUMIN 1.8 g/dL (3.4-5.0); CALCIUM 7.8 mg/dL (8.5-10.1); CREATININE 0.9 mg/dL (0.6-1.3); MAGNESIUM 1.8 mg/dL (1.8-2.4); PHOSPHORUS* 3.5 mg/dL (2.5-4.9); POTASSIUM 3.4 mmol/L (3.5-5.1); TOTAL BILIRUBIN 0.8 mg/dL (<0.1-1.0); TOTAL PROTEIN 5.8 g/dL (6.4-8.2)
[2020-03-01 08:00] VITALS: BP 115/78
[2020-03-01 08:03] LABS: ABSOLUTE LYMPHOCYTES 2.4 thou/uL (0.8-5.3); ABSOLUTE MONOCYTES 0.9 thou/uL (0.0-1.2); ABSOLUTE NEUTROPHILS 18.2 thou/uL (1.6-8.1); ATYPICAL LYMPHS 1 %
[2020-03-01 08:04] LABS: MICROCYTES 2+; PLATELET ESTIMATE ADEQUATE; TOXIC GRANULATION 2+
--- NOTE | 2020-03-01 10:42 | NUR ---
RECIEVED REPORT AROUND 0715. ASSUMED CARE. VS AND ASSESSMENT CHARTED. PT LYING IN BED THIS AM WITH BIPAP ON. SLEEPING ON AND OFF THROUGHOUT ASSESSMENT. IV INTACT. PICC RIGHT UPPER ARM TRIPLE LUMEN. SALINE LOCKED. HEART MONITOR ATTACHED AT AFIB. HEART RATE BEEN RUNNING IN THE 100'S TO 110'S THIS AM. MEDICATION GIVEN THIS AM. NO REPORTS OF PAIN. PT STATED "NO" TO ANY PAIN. POTASSIUM GIVEN PER PROTOCOL. REDRAW ORDERED. CL DIET. PT HAS SOME BM'S THROUGHOUT THE NIGHT AND ABDOMAN IS NOT DISTENDED THIS SHIFT. CALL LIGHT WITHIN REACH. WILL CONTINUE TO MONITOR.
--- NOTE | 2020-03-01 11:38 | NUR ---
Surgery consulted for possible ilieus. Cardiology following. Pt may be medically stable to dc tomorrow, ex ox to be completed if o2 still need. CM to provide community resources.
[2020-03-01 11:49] VITALS: BP 123/83
--- NOTE | 2020-03-01 13:37 | NUR ---
RE:Heart failure medication education I provided the patient a heart failure medication education handout. We discussed digoxin, furosemide, lisinopril, and metoprolol. All patients questions were answered. Pharmacy is available for any future questions. Thank you.
[2020-03-01 15:59] VITALS: BP 111/79
--- NOTE | 2020-03-01 18:15 | NUR ---
PT MOM VISITED THIS SHIFT. UPDATED ON PT. PT DID NOT REPORT PAIN TO STAFF. PT MOM CAME OUT TO ASK FOR PAIN MEDS. PT TOLD TO USE CALL LIGHT TO REACH STAFF AND TO TELL STAFF WHEN IN PAIN. PT STAYED ON BIPAP MOST OF THIS SHIFT. LORAZAPAM GIVEN THIS SHIFT. MEDICATION PER AUG. IV INTACT RIGHT UPPER ARM. HEART MONITOR ATTACHED AT AFIB RUNNING IN THE 110'S THIS SHIFT. CALL LIGHT WITHIN REACH. WILL CONTINUE TO MONITOR.
[2020-03-01 20:10] VITALS: BP 109/70
[2020-03-02 04:00] VITALS: BP 118/71
[2020-03-02 05:11] LABS: ABSOLUTE LYMPHOCYTES 2.1 thou/uL (0.8-5.3); ABSOLUTE MONOCYTES 1.8 thou/uL (0.0-1.2); ABSOLUTE NEUTROPHILS 21.6 thou/uL (1.6-8.1); BASOPHILS 0.1 %; EOSINOPHILS 0.1 %; HEMATOCRIT 39.5 % (42.0-52.0); HEMOGLOBIN 13.1 gm/dL (14.0-18.0); LYMPHOCYTES 8.4 %; MCV 78.8 fL (80.0-100.0); NUCLEATED RBCS 0 /100WBC; PLATELET COUNT* 277 thou/uL (150-400); POLYS 84.4 %; RBC 5.01 mil/uL (4.50-6.00); RDW-CV 17.6 % (10.5-14.5); WBC 25.6 thou/uL (4.0-11.0)
[2020-03-02 05:24] LABS: ALBUMIN 1.7 g/dL (3.4-5.0); CREATININE 0.9 mg/dL (0.6-1.3); POTASSIUM 3.8 mmol/L (3.5-5.1); TOTAL BILIRUBIN 0.7 mg/dL (<0.1-1.0); TOTAL PROTEIN 5.6 g/dL (6.4-8.2)
[2020-03-02 05:32] LABS: INR 1.9; PROTIME 19.1 Seconds (9.20-11.50)
--- NOTE | 2020-03-02 06:41 | NUR ---
PT CARE ASSUMED AT 1930. SAT MAINTAINED IN RA. ALERT AND ORIENTED X4. C/O PAIN, MEDICATION GIVEN PER EMAR. CALL LIGHT WITHIN REACH AND BED IN LOW POSITION. HOURLY ROUNDING DONE FOR PT SAFETY.
[2020-03-02 08:00] VITALS: BP 100/64
[2020-03-02 11:45] VITALS: BP 111/83
--- NOTE | 2020-03-02 11:49 | NUR ---
RECIEVED REPORT AROUND 0715. ASSUMED CARE. VS AND ASSESSMENT CHARTED. IV INTACT PICC UPPER RIGHT ARM. HEART MONITOR ATTACHED AT AFIB. MEDS GIVEN THIS AM. PT STATED "NO" TO ANY PAIN. BIPAP ON THIS AM. ADVANCING DIET TOLERATED. FULL LIQUIDS FOR BREAKFAST. SOFT/FIBER RESTRICTED DIET FOR LUNCH. PT LYING IN BED. POSSIBLE DISCHARGE THIS SHIFT. MOM CALLED AND UPDATED ON PT. CALL LIGHT WITHIN REACH. WILL CONTINUE TO MONITOR.
--- NOTE | 2020-03-02 16:07 | NUR ---
Dr discussed hospice with mom, CM to f/u. Pt continuing to complain of plan. Plan CT this afternoon. Following.
--- NOTE | 2020-03-02 17:02 | NUR ---
PT.'S MOTHER CAME UP TO O.T. AND SAID THAT THE PHYSICIAN HAD TOLD HER THAT PT.'S ORGANS WERE SHUTTING DOWN BUT TO NOT TELL THE PT. SHE HAD BROUGHT UP PAPERWORK FROM TO GIVE TO THE NURSE AND WAS LOOKING FOR THE NURSE. O.T. NOTIFIED RN THAT PT'S MOTHER WAS LOOKING FOR HER TO PROVIDE PAPERWORK TO RN.
[2020-03-02 17:26] VITALS: BP 98/65
--- NOTE | 2020-03-02 18:37 | NUR ---
AFTER PT ATE SOFT DIET FOR LUNCH. PT COMPLAINED OF PAIN IN THE ABDOMAN. PT STATING "THERE'S NO WAY I CAN GO HOME AND DEAL WITH THIS PAIN" PT MOM VISITED. AND WAS DEMANDING SOMETHING STRONGER FOR PAIN AND TO TALK TO THE PHYSCIAN MULTIPLE TIMES. DR. ROCHA NOTIFIED. AND SPOKE TO PT MOM VIA PHONE. ORDERS RECIEVED FOR ONE TIME DOSE OF IV FENTYNAL AND CT OF THE ABDOMAN AND PELVIS. PT CURRENTLY RESTING IN BED. POSSIBLE DISCHARGE TOMORROW. CALL LIGHT WITHIN REACH. WILL CONTINUE TO MONITOR.
[2020-03-02 20:20] VITALS: BP 104/63
[2020-03-02 22:01] LABS: ABSOLUTE BASOPHILS 0.1 thou/uL (0.0-0.2); ABSOLUTE LYMPHOCYTES 1.9 thou/uL (0.8-5.3); ABSOLUTE MONOCYTES 1.6 thou/uL (0.0-1.2); ABSOLUTE NEUTROPHILS 26.7 thou/uL (1.6-8.1); BASOPHILS 0.2 %; EOSINOPHILS 0.1 %; HEMATOCRIT 38.4 % (42.0-52.0); HEMOGLOBIN 12.7 gm/dL (14.0-18.0); LYMPHOCYTES 6.3 %; MCH 26.1 pg (26.0-34.0); MCHC 33.1 g/dL (28.0-37.0); MCV 78.9 fL (80.0-100.0); MONOCYTES 5.3 %; MPV 8.4 fl. (7.2-11.1); NUCLEATED RBCS 0 /100WBC; PLATELET COUNT* 262 thou/uL (150-400); POLYS 88.1 %; RBC 4.87 mil/uL (4.50-6.00); RDW-CV 17.6 % (10.5-14.5); WBC 30.3 thou/uL (4.0-11.0)
[2020-03-02 22:04] LABS: APTT 32.2 Seconds (25.0-31.3); INR 2.1; PROTIME 20.7 Seconds (9.20-11.50)
[2020-03-03] VITALS (14 sets, daily range): BP systolic 99–142; BP diastolic 57–88
--- NOTE | 2020-03-03 04:21 | NUR ---
PT CARE ASSUMED AT 1930. ALERT AND ORIENTED X4. PT RESTING COMFORTABLY WITH EYES SHUT IN HIS BED ON THE FIRST ROUNDS MADE BY THIS NURSE. WENT TO GIVE HIM HIS NIGHT TIME MEDS, PT ASKING FOR PAIN MEDICATION. ASKING IF HE CAN HAVE FENTANYL, THIS NURSE TOLD HIM HE CAN HAVE HYDROCODONE, FENTANYL HASN'T BEEN ORDERED. PT GOT ANGRY ABOUT NOT GETTING ANY PAIN MEDICATION. SAID "I HAVE BEEN IN PAIN SINCE LAST 5 DAYS". PHYSICIAN INFORMED GOT ORDER FOR FENTANYL, ADMINISTERED PER EMAR. THIS NURSE HAD HIM PT SINCE LAST 2 NIGHTS. PT HAS BEEN SEEN WITH EYES SHUT AT REST THROUGHIUT THE NIGHT AND ASKS FOR PAIN MEDICATION HE GETS UP. PACKAGING DESIGN ENGINEER REPORTED THIS NURSE PT SLEEPING WHILE GETTING VITALS. CT CALLED REPORTING THE RESULTS OF CT ABD/PELVIS, PHYSICIAN NOTIFIED. SURGERY CAME TO VISIT THE PT. ORDERS RECEIVED AND IMPLEMENTED. JOSSELYNIGHT PT SEEN SLEEPING AT THE TIME OF MIDNIGHT AND 4AM VITALS BY THE PACKAGING DESIGN ENGINEER. SLEPT THROUGHOUT WHILE THE NURSE WAS DRAWING BLOOD. CALL LIGHT WITHIN REACH AND BED IN LOW POSITION. HOURLY ROUNDING DONE FOR PT SAFETY.
[2020-03-03 04:49] LABS: CALCIUM 7.5 mg/dL (8.5-10.1); MAGNESIUM 1.6 mg/dL (1.8-2.4); PHOSPHORUS* 3.4 mg/dL (2.5-4.9); POTASSIUM 3.7 mmol/L (3.5-5.1)
[2020-03-03 04:50] LABS: INR 1.9; PROTIME 18.8 Seconds (9.20-11.50)
[2020-03-03 04:52] LABS: APTT 46.9 Seconds (25.0-31.3)
[2020-03-03 06:04] LABS: URINE BILIRUBIN NEGATIVE (Negative); URINE BLOOD 2+ (Negative); URINE CLARITY CLEAR; URINE COLOR YELLOW; URINE GLUCOSE-RANDOM NEGATIVE (Negative); URINE KETONES NEGATIVE (Negative); URINE LEUKOCYTES-REFLEX NEGATIVE (Negative); URINE NITRITE-REFLEX NEGATIVE (Negative); URINE PROTEIN TRACE (Negative); URINE SPECIFIC GRAVITY 1.015 (1.005-1.030); URINE UROBILINOGEN 0.2 E.U./dl (0.2-1.0)
[2020-03-03 06:25] LABS: SQUAMOUS NONE SEEN /LPF (0-3); URINE RBC 0-2 Rare /HPF (0-2); URINE WBC-REFLEX None Seen /HPF (0-5)
[2020-03-03 06:26] LABS: BACTERIA-REFLEX 1-9 Few /HPF (None Seen); CASTS None Seen /LPF (None Seen); CRYSTALS None Seen /LPF (None Seen); MUCUS None Seen strn/LPF (None Seen)
[2020-03-03 10:24] LABS: ABSOLUTE EOSINOPHILS 0.1 thou/uL (0.0-0.7); ABSOLUTE MONOCYTES 1.6 thou/uL (0.0-1.2); BASOPHILS 0.1 %; EOSINOPHILS 0.3 %; HEMATOCRIT 34.4 % (42.0-52.0); HEMOGLOBIN 11.2 gm/dL (14.0-18.0); LYMPHOCYTES 7.1 %; MCH 25.8 pg (26.0-34.0); MCHC 32.5 g/dL (28.0-37.0); MCV 79.5 fL (80.0-100.0); MONOCYTES 5.9 %; MPV 8.1 fl. (7.2-11.1); NUCLEATED RBCS 0 /100WBC; PLATELET COUNT* 228 thou/uL (150-400); POLYS 86.6 %; RBC 4.33 mil/uL (4.50-6.00); RDW-CV 17.4 % (10.5-14.5); WBC 27.7 thou/uL (4.0-11.0)
[2020-03-03 10:33] LABS: INR 2.2; PROTIME 22.1 Seconds (9.20-11.50)
[2020-03-03 10:39] LABS: ALBUMIN 1.4 g/dL (3.4-5.0); CALCIUM 6.9 mg/dL (8.5-10.1); CREATININE 0.8 mg/dL (0.6-1.3); POTASSIUM 3.4 mmol/L (3.5-5.1); TOTAL BILIRUBIN 0.6 mg/dL (<0.1-1.0); TOTAL PROTEIN 4.9 g/dL (6.4-8.2)
--- NOTE | 2020-03-03 14:05 | NUR ---
Pt to have surgery today for ischemic bowel.
--- NOTE | 2020-03-03 19:00 | NUR ---
RECEIVED REPORT FROM NIGHT RN. ASSUMED CARE OF PT AROUND 0730. PT ON BIPAP DURING AM ASSESSMENT, BUT AWAKE AND ABLE TO TALK. A&O X4. AM ASSESSMENT AND VITALS COMPLETED CHARTED. PT COMPLAINING OF 10/10 ABDOMINAL PAIN - MEDICATIONS GIVEN TO PT RELIEF. PT WENT DOWN FOR PROCEDURE TODAY TO REMOVE CLOT FROM SMA. PT RETURNED TO THE UNIT AND POST PROCEDURE VITALS WERE COMPLETED AND CHARTED UNDER THE POST CARDIAC CATH INTERVENTION. RIGHT GROIN SITE IS CDI, NO HEMATOMA. BELLY REMAINS FIRM AND DISTENDED, BUT PT REPORTED LESS PAIN POST PROCEDURE. MOTHER IN TO VISIT PT TODAY, UPDATE GIVEN. HEPARIN GTT CONTINUES. POTASSIUM REPLACED. PT REMAINS NPO PER ORDER. BED IS LOCKED AND IN LOW POSITION. CALL LIGHT IS WITHIN REACH, HOURLY ROUNDING PERFORMED.
[2020-03-04] VITALS: BP 119/72
[2020-03-04 04:00] VITALS: BP 114/75
[2020-03-04 05:38] LABS: ABSOLUTE LYMPHOCYTES 1.1 thou/uL (0.8-5.3); ABSOLUTE MONOCYTES 1.8 thou/uL (0.0-1.2); ABSOLUTE NEUTROPHILS 26.3 thou/uL (1.6-8.1); BASOPHILS 0.1 %; HEMATOCRIT 37.9 % (42.0-52.0); HEMOGLOBIN 12.2 gm/dL (14.0-18.0); LYMPHOCYTES 3.9 %; MCH 25.5 pg (26.0-34.0); MCHC 32.2 g/dL (28.0-37.0); MCV 79.1 fL (80.0-100.0); MONOCYTES 6.1 %; MPV 8.4 fl. (7.2-11.1); NUCLEATED RBCS 0 /100WBC; POLYS 89.9 %; RBC 4.79 mil/uL (4.50-6.00); WBC 29.2 thou/uL (4.0-11.0)
[2020-03-04 05:51] LABS: APTT 46.7 Seconds (25.0-31.3); INR 2.1; PLATELET COUNT* 311 thou/uL (150-400); PROTIME 20.7 Seconds (9.20-11.50)
[2020-03-04 05:55] LABS: ALBUMIN 1.6 g/dL (3.4-5.0); CALCIUM 8.1 mg/dL (8.5-10.1); CREATININE 0.9 mg/dL (0.6-1.3); PHOSPHORUS* 4.4 mg/dL (2.5-4.9); POTASSIUM 4.2 mmol/L (3.5-5.1); TOTAL BILIRUBIN 1.1 mg/dL (<0.1-1.0)
[2020-03-04 06:10] LABS: PREALBUMIN 14.6 mg/dL (18.0-35.7)
--- NOTE | 2020-03-04 07:48 | NUR ---
PT CARE ASSUMED AT 1930. SAT MAINTAINED IN BIPAP. ALERT AND ORIENTED X4. C/O PAIN, MEDICATION GIVEN PER EMAR. SURGICAL SITE ON RT GROIN C/D/I. HEPARIN DRIP RUNNING. PT'S HR ELEVATED TO 140-150'S, SURGERY INFORMED AND GOT AN ORDER FOR EARLY DOSE OF METOPROLOL. MEDICATION GIVEN, HR RUNNING AT 120-130'S THIS TIME. SURGICAL CLERICAL AIDE TEACHER CAME IN TO SEE THE PT. CALL LIGHT WITHIN REACH AND BED IN LOW POSITION. HOURLY ROUNDING DONE FOR PT SAFETY.
[2020-03-04 08:00] VITALS: BP 111/70
--- NOTE | 2020-03-04 10:05 | OP ---
[address] [address] OPERATIVE REPORT Name: KORYJESSICAFRANCISCO L Room: [address] [place] .#: [id number] Admission: 02/22/20 Attend Phys: Ramona Gao Discharge: Date of : 68 Report #: [id number] THIS REPORT FOR: //name// cc: [facility] - [facility] physician unknown [facility] physician unknown ~ CC: [facility] unknown [facility] Tenzin Urrutia DATE OF SERVICE: 03/03/2020 PREOPERATIVE DIAGNOSIS: Mesenteric ischemia with SMA thrombosis. POSTOPERATIVE DIAGNOSIS: Mesenteric ischemia with SMA thrombosis. OPERATION: 1. Ultrasound-guided access to the right common femoral artery. 2. Aortoiliofemoral angiogram. 3. Selective SMA angiogram. 4. Percutaneous mechanical thrombectomy, thrombolysis, AngioJet the SMA. 4. SMA angioplasty 6 mm Ultraverse balloon. SURGEON: Sylvester Ogden DO MONOTYPIST: MADISON Boland ANESTHESIA: Sedation with local. ESTIMATED BLOOD LOSS: 50 mL. FLUIDS: See nursing report. FINDINGS: Aortogram demonstrated patent aorta and iliac vessels without significant stenosis. Selective SMA arteriogram demonstrated occlusion of the distal superior mesenteric artery at a branch point. Following the percutaneous mechanical thrombectomy, thrombolysis and angioplasty had religion of inline flow through the superior mesenteric artery. The patient's abdominal symptoms began to improve intraoperatively. CLINICAL HISTORY: The patient is a 49-year-old man who presented with a left ventricular thrombus, demonstration of embolization to his kidney and spleen with infarctions. SMA was noted to be thrombosed distally. He has had persistent abdominal pain despite conservative measures. Elevated white count, was taken today for mesenteric angiogram and intervention. DESCRIPTION OF PROCEDURE: After informed consent was obtained, the patient was [address] [address] OPERATIVE REPORT Name: FRANCISCO LERNER Room: [address] IN [facility]#: [id number] Admission: 02/22/20 Attend Phys: Ramona Gao Discharge: Date of : 68 Report #: [id number] taken to the angio suite, placed on the angio bed in the supine position. He was administered sedation by the nurse at my discretion. Bilateral groins were prepped and draped in usual sterile fashion. A full timeout was performed identifying correct patient and procedure. Using ultrasound guidance, right common femoral artery was identified, was accessed with micropuncture needle after anesthetizing skin and subcutaneous tissues with lidocaine anesthetic. Ultrasound images were preserved. Using Seldinger technique, a microwire and microsheath were placed, ultimately upsized to a 6-English sheath. I advanced a flush catheter over the Advantage wire up into the aorta and performed aortoiliofemoral angiogram with the findings noted above. I was then able to select out the superior mesenteric artery. Selective angiogram demonstrated a position in the superior mesenteric artery with occlusion as noted above. I then advanced a 6-English sheath up into the SMA. I then performed the percutaneous mechanical thrombolysis and thrombectomy with AngioJet catheter. via TPA and power pulse mode; about 75 mL with a 100 ml bag, 10 mg of TPA. This allowed to dwell for 25 minutes. I then performed a limited mechanical thrombectomy. No significant pain with the thrombectomy. Followup imaging demonstrated a decent result. There is still a little bit of chronic residual thrombus. I then serially angioplastied this with a 4-mm and subsequently 6 mm Ultraverse balloon with good result. Completion imaging demonstrated brisk inline flow through the SMA and the main SMA branch. There were large multiple jejunal branches that were filling as well. The patient's abdominal pain began to improve on the angio table. Satisfied with the result, the wire and sheath were backed in the right external iliac artery angiogram through the sheath to confirm access position. Exchanged out for the short 6-English sheath. It should be noted that the patient had been on heparin drip preoperatively and this was maintained throughout the duration of the procedure. We then deployed a 6-English Mynx closure device in standard fashion. Manual pressure was held for 15 minutes. Once hemostasis was ensured, sterile dressing was applied. All counts reported correct x2. He tolerated the procedure well and transferred to recovery in stable condition. He will be monitored closely by General Surgery should he show progressive signs of abdominal compromise and likely require laparotomy and bowel resection as needed. <ELECTRONICALLY SIGNED> By: Sylvester Ogden DO 03/04/20 1005 [id number] Ogden DO /nt
[2020-03-04 11:57] VITALS: BP 149/77
--- NOTE | 2020-03-04 12:43 | NUR ---
Surgery yesterday. No weekend dc anticipated. CM working to secure a nurse. Pt planning on discharging to his mom's at dc
[2020-03-04 16:00] VITALS: BP 112/74
--- NOTE | 2020-03-04 16:29 | NUR ---
PT STATES PAIN IS MUCH BETTER TODAY. PT ON CPAP MOST OF DAY, SLEEPING. PT NPO EXCEPT FOR MEDS AND THIS IS TO CONTINUE PER SURGERY. PT ON A WALK NOW. DOING WELL WITH SBA ON RA.
[2020-03-04 20:00] VITALS: BP 125/96
[2020-03-05] VITALS: BP 113/75
[2020-03-05 04:00] VITALS: BP 118/83
[2020-03-05 04:53] LABS: HEMOGLOBIN 10.5 gm/dL (14.0-18.0); MCHC 32.7 g/dL (28.0-37.0); MCV 79.5 fL (80.0-100.0); MPV 8.3 fl. (7.2-11.1); NUCLEATED RBCS 0 /100WBC; PLATELET COUNT* 336 thou/uL (150-400); RBC 4.03 mil/uL (4.50-6.00); RDW-CV 17.3 % (10.5-14.5); WBC 26.8 thou/uL (4.0-11.0)
[2020-03-05 05:02] LABS: ALBUMIN 1.4 g/dL (3.4-5.0); CALCIUM 7.3 mg/dL (8.5-10.1); MAGNESIUM 1.7 mg/dL (1.8-2.4); PHOSPHORUS* 3.4 mg/dL (2.5-4.9); POTASSIUM 3.6 mmol/L (3.5-5.1); TOTAL BILIRUBIN 0.5 mg/dL (<0.1-1.0); TOTAL PROTEIN 5.1 g/dL (6.4-8.2)
[2020-03-05 05:14] LABS: PREALBUMIN 14.2 mg/dL (18.0-35.7)
[2020-03-05 05:15] LABS: INR 2.9; PROTIME 28.5 Seconds (9.20-11.50)
[2020-03-05 05:16] LABS: APTT 198.4 Seconds (25.0-31.3)
[2020-03-05 06:02] LABS: ABSOLUTE EOSINOPHILS 0.3 thou/uL (0.0-0.7); ABSOLUTE LYMPHOCYTES 4.3 thou/uL (0.8-5.3); ABSOLUTE MONOCYTES 1.3 thou/uL (0.0-1.2); ABSOLUTE NEUTROPHILS 20.9 thou/uL (1.6-8.1); ANISOCYTOSIS 1+; PLATELET ESTIMATE ADEQUATE; TOXIC GRANULATION 2+
[2020-03-05 06:03] LABS: CLUMPED PLTS FEW; HYPOCHROMASIA 1+; LARGE PLATELETS OCCASIONAL
[2020-03-05 08:40] VITALS: BP 119/72
[2020-03-05 13:11] VITALS: BP 109/70
[2020-03-05 16:56] VITALS: BP 106/53
--- NOTE | 2020-03-05 18:47 | NUR ---
ASSUMED CARE OF PT APPROX 0730. REASSESMENT COMPLETED CHARTED. MEDICATIONS GIVEN CHARTED. HEPARIN DCED BY CARDIOLOGY AND RESUMED BY SURGERY. PT IS ON HEPARIN GTT PER PROTOCOL, DOCUMENTED ON EMAR AND ON CHART. PT REPORTS HAVING TWO SMALL SOFT BM'S AND PASSING FLATUS. PER SURGERY PT ABLE TO HAVE TWO ITEMS OF CLEAR LIQUIDS. PT HAD ONE FROZEN ICEY THIS EVENING, PT TOLERATED WELL. HOURLY ROUNDED, TELE MONITORING. BED IN LOW POSTION AND CALL LIGHT WITHIN REACH.
[2020-03-05 20:00] VITALS: BP 107/74
[2020-03-06] VITALS: BP 90/61
[2020-03-06 04:00] VITALS: BP 100/64
[2020-03-06 05:51] LABS: ABSOLUTE BASOPHILS 0.1 thou/uL (0.0-0.2); ABSOLUTE EOSINOPHILS 0.1 thou/uL (0.0-0.7); ABSOLUTE LYMPHOCYTES 2.7 thou/uL (0.8-5.3); ABSOLUTE MONOCYTES 1.8 thou/uL (0.0-1.2); ABSOLUTE NEUTROPHILS 17.6 thou/uL (1.6-8.1); BASOPHILS 0.3 %; EOSINOPHILS 0.3 %; HEMATOCRIT 33.2 % (42.0-52.0); HEMOGLOBIN 10.9 gm/dL (14.0-18.0); LYMPHOCYTES 12.3 %; MCH 26.1 pg (26.0-34.0); MCV 79.1 fL (80.0-100.0); MONOCYTES 8.1 %; MPV 8.1 fl. (7.2-11.1); NUCLEATED RBCS 0 /100WBC; PLATELET COUNT* 359 thou/uL (150-400); RDW-CV 17.4 % (10.5-14.5); WBC 22.3 thou/uL (4.0-11.0)
[2020-03-06 06:01] LABS: APTT 68.3 Seconds (25.0-31.3); INR 4.3; PROTIME 41.6 Seconds (9.20-11.50)
[2020-03-06 06:02] LABS: ALBUMIN 1.6 g/dL (3.4-5.0); CALCIUM 7.6 mg/dL (8.5-10.1); CREATININE 0.9 mg/dL (0.6-1.3); PHOSPHORUS* 3.8 mg/dL (2.5-4.9); POTASSIUM 3.8 mmol/L (3.5-5.1); TOTAL BILIRUBIN 0.5 mg/dL (<0.1-1.0); TOTAL PROTEIN 5.4 g/dL (6.4-8.2)
[2020-03-06 06:06] LABS: PREALBUMIN 16.8 mg/dL (18.0-35.7)
[2020-03-06 08:00] VITALS: BP 95/69
--- NOTE | 2020-03-06 11:51 | CON ---
[address] [address] CONSULTATION Name: FRANCISCO LERNER Room: [address] IN M.R.#: [id number] Admission: 02/22/20 Attend Phys: Ramona Gao Discharge: Date of : 68 Report #: [id number] THIS REPORT FOR: //name// cc: [facility] - [facility] physician unknown [facility] physician unknown ~ THIS REPORT FOR: //name// CC: [facility] unknown [facility] Tenzin Urrutia CONSULTING PHYSICIAN: Robert Parikh MD REASON FOR CONSULTATION: Possible renal infarct. HISTORY OF PRESENT ILLNESS: A 49-year-old gentleman who was admitted with abdominal pain, respiratory distress, eventually was intubated. He was recently hospitalized at . I am asked to see him because during the course of his workup, he had a CT scan with IV contrast demonstrating infarcts in the left kidney. In reviewing the records from it appears that he had evidence of this at that time when he was hospitalized there. I did review the note from 02/07. He had an admission creatinine of 1.7, is now down to 1.1. Cardiology has order some diuretic. The patient is currently intubated. He has good urine output. REVIEW OF SYSTEMS: Constitutional, psych, heme, eyes, ENT, respiratory, cardiac, GI, , endocrine, all negative except as documented above. PAST MEDICAL HISTORY: Bilateral pulmonary emboli, history of DVT, left ventricular thrombus, hypertension, history of PFO closure, obstructive sleep apnea, on CPAP, suspected COPD, cardiomyopathy, AFib, hypertension, dyslipidemia, diabetes poorly controlled and atrial fibrillation. SOCIAL HISTORY: Positive for tobacco. Urine drug screen was positive for marijuana and amphetamine. FAMILY HISTORY: Not pertinent in this 49-year-old gentleman. CURRENT MEDICATIONS: Reviewed. PHYSICAL EXAMINATION: VITAL SIGNS: Blood pressure 112/72, pulse 89, respirations 19, temperature 37.5. GENERAL: No acute distress. EYES: Closed. EARS: Externally normal. CARDIOVASCULAR: [place] [id number] CONSULTATION Name: QUINSAJIJESSICAFRANCISCO Bereket Room: [address]#: [id number] Admission: 02/22/20 Attend Phys: Ramona Gao Discharge: Date of : 68 Report #: [id number] LUNGS: Diminished. ABDOMEN: Soft. MUSCULOSKELETAL: Nontender. PSYCHIATRIC: Intubated and sedated. LABORATORY DATA: White cell count 24, hemoglobin 11.6, platelets 258. Sodium 130, potassium 3.9, chloride 98, bicarbonate 25, BUN 24, creatinine 1.1, glucose 231 and calcium 7.7. ASSESSMENT: 1. 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 CTA did not reveal any occlusive renal vascular disease. He does have a history of atrial septal defect closure atrial fibrillation, left ventricular thrombus 2.8 cm in size. Admission creatinine was 1.7, now down to 1.1, also has a urine drug screen positive for amphetamines 2. A 5 mm nonobstructing right renal calculus. 3. Hyponatremia in the setting of cardiomyopathy. 4. Urine drug screen positive for substance abuse with urine drug screen positive for methamphetamine and marijuana. 5. Hematuria and proteinuria, which can be seen with renal infarcts also with methamphetamines. 6. Chronic atrial fibrillation. 7. Cardiomyopathy with ejection fraction of 20-25% based on 12/2019 echo. 8. Recent pulmonary embolism with history of deep venous thrombosis. 9. Diabetes, poorly controlled. 10. Obstructive sleep apnea, on CPAP. PLAN: 1. Anticoagulation per Cardiology. 2. Lasix has been ordered by Cardiology. He will need a repeat UA at a later time. 3. Check CK. 4. For the hypernatremia repeat sodium is ordered. He is being anticoagulated. Urine output is good. From my standpoint, I do not have any other recommendations and will sign off the case, but remain available should any questions arise. Thank you for requesting my opinion in the care and management of this patient. <ELECTRONICALLY SIGNED> By: Bereket Lizarraga MD 03/06/20 1151 [id number] Lizarraga MD /nt
[2020-03-06 12:00] VITALS: BP 101/75
--- NOTE | 2020-03-06 15:39 | NUR ---
ASSUMED CARE OF PATIENT THIS AM AT 0730. PATIENT IS ALERT AND ORIENTED X 4. HE C/O PAIN OFF AND ON TODAY. PATIENT MEDICATED FOR PAIN X 2. INR 4.3. DR ROCHA AND VASCULAR SURGERY NOTIFIED. HEPARIN GTT DISCONTINUED PER ORDER. PATIENT WAS TAKEN TO RADIOLOGY PER W/C FOR X RAYS AND RETURNED. SURGERY WAS NOTIFIED AND REGULAR DIET RESUMED. PATIENT WAS UP IN THE CHAIR FOR A SHORT TIME THIS AFTERNOON. HIS HEART RATE HAD INCREASED TO 130'S TO 150'S. PO METOPROLOL STARTED. PATIENT ENCOURAGED TO LIE DOWN. HIS HEART RATE HAS NOW DECREASED TO 100 110. PATIENT CONTINUES A FIB ON THE MONITOR. HE DENIES CHEST PAIN. WILL CONTINUE TO MONITOR.
[2020-03-06 17:28] VITALS: BP 108/61
[2020-03-06 20:00] VITALS: BP 118/80
[2020-03-07 00:35] VITALS: BP 119/71
[2020-03-07 04:00] VITALS: BP 126/71
[2020-03-07 05:21] LABS: ABSOLUTE BASOPHILS 0.1 thou/uL (0.0-0.2); ABSOLUTE EOSINOPHILS 0.1 thou/uL (0.0-0.7); ABSOLUTE LYMPHOCYTES 2.5 thou/uL (0.8-5.3); ABSOLUTE MONOCYTES 1.5 thou/uL (0.0-1.2); ABSOLUTE NEUTROPHILS 15.8 thou/uL (1.6-8.1); BASOPHILS 0.4 %; EOSINOPHILS 0.5 %; HEMATOCRIT 31.7 % (42.0-52.0); HEMOGLOBIN 10.5 gm/dL (14.0-18.0); LYMPHOCYTES 12.6 %; MCH 26.4 pg (26.0-34.0); MCV 79.9 fL (80.0-100.0); MONOCYTES 7.3 %; MPV 7.6 fl. (7.2-11.1); NUCLEATED RBCS 0 /100WBC; PLATELET COUNT* 364 thou/uL (150-400); POLYS 79.2 %; RBC 3.97 mil/uL (4.50-6.00); RDW-CV 17.9 % (10.5-14.5)
[2020-03-07 05:35] LABS: PROTIME 45.8 Seconds (9.20-11.50)
[2020-03-07 05:39] LABS: ALBUMIN 1.6 g/dL (3.4-5.0); CALCIUM 6.8 mg/dL (8.5-10.1); CREATININE 1.1 mg/dL (0.6-1.3); POTASSIUM 3.4 mmol/L (3.5-5.1); TOTAL BILIRUBIN 0.3 mg/dL (<0.1-1.0); TOTAL PROTEIN 5.3 g/dL (6.4-8.2)
[2020-03-07 05:51] LABS: INR 4.7
[2020-03-07 07:30] VITALS: BP 107/63
[2020-03-07 12:28] VITALS: BP 115/75
[2020-03-07 17:14] VITALS: BP 123/79
[2020-03-07 20:00] VITALS: BP 113/69
[2020-03-07 20:19] LABS: INR 3.3; PROTIME 32.2 Seconds (9.20-11.50)
[2020-03-07 20:20] LABS: APTT 36.9 Seconds (25.0-31.3)
[2020-03-08] VITALS: BP 105/72
[2020-03-08 04:32] VITALS: BP 117/75
[2020-03-08 05:39] LABS: ABSOLUTE BASOPHILS 0.1 thou/uL (0.0-0.2); ABSOLUTE EOSINOPHILS 0.1 thou/uL (0.0-0.7); ABSOLUTE LYMPHOCYTES 2.2 thou/uL (0.8-5.3); ABSOLUTE MONOCYTES 1.3 thou/uL (0.0-1.2); ABSOLUTE NEUTROPHILS 19.1 thou/uL (1.6-8.1); BASOPHILS 0.4 %; EOSINOPHILS 0.6 %; HEMATOCRIT 32.7 % (42.0-52.0); HEMOGLOBIN 10.7 gm/dL (14.0-18.0); LYMPHOCYTES 9.5 %; MCH 25.8 pg (26.0-34.0); MCHC 32.5 g/dL (28.0-37.0); MCV 79.3 fL (80.0-100.0); MONOCYTES 5.7 %; MPV 7.7 fl. (7.2-11.1); NUCLEATED RBCS 0 /100WBC; PLATELET COUNT* 392 thou/uL (150-400); POLYS 83.8 %; RBC 4.13 mil/uL (4.50-6.00); RDW-CV 18.1 % (10.5-14.5); WBC 22.7 thou/uL (4.0-11.0)
[2020-03-08 05:55] LABS: APTT 35.3 Seconds (25.0-31.3); INR 2.6; PROTIME 26.1 Seconds (9.20-11.50)
[2020-03-08 05:57] LABS: MAGNESIUM 1.7 mg/dL (1.8-2.4); PHOSPHORUS* 3.4 mg/dL (2.5-4.9)
[2020-03-08 06:00] LABS: ALBUMIN 1.8 g/dL (3.4-5.0); CALCIUM 7.7 mg/dL (8.5-10.1); CREATININE 0.9 mg/dL (0.6-1.3); POTASSIUM 3.7 mmol/L (3.5-5.1); TOTAL BILIRUBIN 0.4 mg/dL (<0.1-1.0); TOTAL PROTEIN 5.7 g/dL (6.4-8.2)
[2020-03-08 06:23] LABS: PREALBUMIN 21.9 mg/dL (18.0-35.7)
[2020-03-08 07:30] VITALS: BP 108/61
--- NOTE | 2020-03-08 13:12 | NUR ---
Pulm requesting that CM assist with trying to figure out what is wrong with Pt's bipap and if it can be fixed. Per Pt "I don't know what's wrong with it, it may be the power cord." CM spoke with Leela from [employer], the bipap was a elisa bipap, so they are not able to replace it. Leela to bring a replacement cord if that does not work, Pt will need to take the bipap into [facility] post dc to see if it is fixable. If not, Pt will need to be qualified for one and will need a sleep study. CM updated Pulm and nurse. Anticipate dc soon.
[2020-03-08 16:43] VITALS: BP 108/74
[2020-03-08 19:40] VITALS: BP 125/84
[2020-03-08 19:45] VITALS: BP 109/57
[2020-03-09] VITALS: BP 109/69
[2020-03-09 04:00] VITALS: BP 89/59
--- NOTE | 2020-03-09 05:12 | NUR ---
ASSUMED CARE OF PT AT 1900. PT IS ALERT AND ORIENTED. PT IS EXTREMELY NONCOMPLIANT. PT WILL NOT STAY IN BED. WHEN PT GETS UP HIS HEART RATE GOES TO 160 TO 220. I HAVE EXPLAINED TO HIM THE IMPORTANCE OF NOT GETTING OUT OF BED. PT DOES NOT CARE AND GETS UP TO GO TO THE RESTROOM INSTEAD OF USING URINAL. PT ALSO ASKING FOR LOTS OF PAIN MEDS. PT GIVEN FENTANYL, ATIVAN AND HYDROCODONE. PT IS IN SINUS TACHYCARDIA AND SOMETIMES SVT. CARDIOLOGY INFORMED ON PREVIOUS SHIFT. PT IS LAYING IN BED COMFORTABLY AT THIS TIME. WILL CONTINUE TO MONITOR PT.
[2020-03-09 05:17] LABS: HEMATOCRIT 34.3 % (42.0-52.0); HEMOGLOBIN 11.2 gm/dL (14.0-18.0); MCH 26.3 pg (26.0-34.0); MCHC 32.8 g/dL (28.0-37.0); MCV 80.1 fL (80.0-100.0); MPV 8.1 fl. (7.2-11.1); NUCLEATED RBCS 0 /100WBC; PLATELET COUNT* 393 thou/uL (150-400); RBC 4.28 mil/uL (4.50-6.00); RDW-CV 18.6 % (10.5-14.5); WBC 20.3 thou/uL (4.0-11.0)
[2020-03-09 05:37] LABS: ALBUMIN 1.8 g/dL (3.4-5.0); CALCIUM 7.7 mg/dL (8.5-10.1); CREATININE 1.2 mg/dL (0.6-1.3); MAGNESIUM 1.8 mg/dL (1.8-2.4); POTASSIUM 4.2 mmol/L (3.5-5.1); TOTAL BILIRUBIN 0.4 mg/dL (<0.1-1.0)
[2020-03-09 05:44] LABS: PREALBUMIN 21.4 mg/dL (18.0-35.7)
[2020-03-09 06:24] LABS: ABSOLUTE BASOPHILS 0.2 thou/uL (0.0-0.2); ABSOLUTE EOSINOPHILS 0.2 thou/uL (0.0-0.7); ABSOLUTE LYMPHOCYTES 3.2 thou/uL (0.8-5.3); ABSOLUTE MONOCYTES 1.4 thou/uL (0.0-1.2); ABSOLUTE NEUTROPHILS 15.2 thou/uL (1.6-8.1)
[2020-03-09 06:25] LABS: ANISOCYTOSIS 2+; MICROCYTES 2+; TOXIC GRANULATION 1+
[2020-03-09 07:49] VITALS: BP 115/68
--- NOTE | 2020-03-09 09:00 | NUR ---
ASSUMED CARE OF PT THIS AM AROUND 0715- WEEKEND ANCHOR IN PLACE ORDERED, TRACING A-FIB, HR NOTED TO INCREASE TO 160 WITH AND MOVEMENT THIS AM- METOPROLOL NOTED TO BE INCREASED TO 100MG DAILY IN AM AND 50 MG AT HS; AND GIVEN PRESCRIBED- PT A&O X4, GRUMPY- CONT OF B/B- SBA WITH TRANSFERS FOR SAFETY- LCTA/DIMINISHED IN BASES, RESP EVEN AND UN-LABORED- VSS, O2 SAT 94% THIS AM ON CPAP- ABD SOFT/ROUND/TENDER, BS X4 QUADS HYPOACTIVE- GOOD PO INTAKE NOTED THIS AM WITH BREAKFAST- RUE PICC NOTED C/D/I WITH IV ZOYSN INFUSSING PRESCRIBED- CHEST X-RAY ORDERED AND COMPLETED THIS AM [facility]- BS MONITORED ORDERED WITH SSI INSULIN PRESCRIBED- PT REPORTS PAIN 01/07 TO RIGHT ABD, PRN HYDROCODONE GIVEN THIS AM PER PT REQUEST- SCHEDULED LIDOCAINE PATCH APPLIED ORDERED- CALL LIGHT AND PERSONAL BELONGINGS WITH IN REACH- ALL NEEDS MET AT THIS TIME- WCTM
[2020-03-09] MEDS ORDERED: FLAGYL500 M1 PO (10:11)
[2020-03-09] MEDS ORDERED: JANTOVEN2 MG PO (10:16)
[2020-03-09] MEDS ORDERED: SPIRONOLACTONE25 MG PO (10:16)
[2020-03-09] MEDS ORDERED: TOPROL XL25 MG PO (10:16)
[2020-03-09] MEDS ORDERED: LASIX 40 MG TAB40 M2 PO (10:16)
[2020-03-09] MEDS ORDERED: LANOXIN 0.25M0.25 M1 PO (10:16)
[2020-03-09] MEDS ORDERED: TOPROL XL100 MG PO (10:16)
[2020-03-09] MEDS ORDERED: LISINOPRIL2.5 MG PO (10:17)
[2020-03-09 10:56] LABS: INR 1.5; PROTIME 15.2 Seconds (9.20-11.50)
[2020-03-09 12:20] VITALS: BP 95/61
--- NOTE | 2020-03-09 14:25 | NUR ---
Plan dc to home today pending cardiology signing off. Pt states that his bipap works now with the new cord. Plan to dc to his mom's home.
[2020-03-09] MEDS ORDERED: ENOXAPARIN100 MG/1 M SUBQ ×2 (15:38→15:40)
== END 2020-03-09 16:45 | disposition home health service (06) | DRG 853 ==
LOC: M.ERS 21:10 → M.2W 02-22 01:16 → M.ICU 02-22 01:16 → M.TBA-ER 02-22 01:16 → M.2W 02-22 04:25 → M.ICU 02-22 08:30 → M.2W 02-22 08:30 → M.ICU 02-22 08:56 → M.2W 02-25 23:43
PROVIDERS: Emergency Medicine; Family Medicine; Internal Medicine; Internal Medicine Cardiovascular Disease; Internal Medicine Critical Care Medicine; Registered Nurse; Surgery; ADMIT Internal Medicine; ATTEND Internal Medicine
PROC: 0BH17EZ Insertion of Endotracheal Airway into Trachea, Via Natural or Artificial Opening (ICD-10-PCS; 2020-02-22)
PROC: 02HV33Z Insertion of Infusion Device into Superior Vena Cava, Percutaneous Approach (ICD-10-PCS; 2020-02-22)
PROC: 5A1945Z Respiratory Ventilation, 24-96 Consecutive Hours (ICD-10-PCS; 2020-02-22)
PROC: 5A09357 Assistance with Respiratory Ventilation, Less than 24 Consecutive Hours, Continuous Positive Airway Pressure (ICD-10-PCS; 2020-02-25)
PROC: 5A09357 Assistance with Respiratory Ventilation, Less than 24 Consecutive Hours, Continuous Positive Airway Pressure (ICD-10-PCS; 2020-02-26)
PROC: 5A09357 Assistance with Respiratory Ventilation, Less than 24 Consecutive Hours, Continuous Positive Airway Pressure (ICD-10-PCS; 2020-02-27)
PROC: 5A09357 Assistance with Respiratory Ventilation, Less than 24 Consecutive Hours, Continuous Positive Airway Pressure (ICD-10-PCS; 2020-02-29)
PROC: 5A09557 Assistance with Respiratory Ventilation, Greater than 96 Consecutive Hours, Continuous Positive Airway Pressure (ICD-10-PCS; 2020-03-01)
PROC: B41F1ZZ Fluoroscopy of Right Lower Extremity Arteries using Low Osmolar Contrast (ICD-10-PCS; principal; 2020-03-03)
PROC: 04753DZ Dilation of Superior Mesenteric Artery with Intraluminal Device, Percutaneous Approach (ICD-10-PCS; principal; 2020-03-03)
PROC: B41D1ZZ Fluoroscopy of Aorta and Bilateral Lower Extremity Arteries using Low Osmolar Contrast (ICD-10-PCS; principal; 2020-03-03)
PROC: 5A09357 Assistance with Respiratory Ventilation, Less than 24 Consecutive Hours, Continuous Positive Airway Pressure (ICD-10-PCS; principal; 2020-03-03)
PROC: 04C53ZZ Extirpation of Matter from Superior Mesenteric Artery, Percutaneous Approach (ICD-10-PCS; principal; 2020-03-03)
PROC: 5A09457 Assistance with Respiratory Ventilation, 24-96 Consecutive Hours, Continuous Positive Airway Pressure (ICD-10-PCS; 2020-03-07)
PROC: 5A09357 Assistance with Respiratory Ventilation, Less than 24 Consecutive Hours, Continuous Positive Airway Pressure (ICD-10-PCS; 2020-03-09)
DX: A41.9 Sepsis, unspecified organism (principal); I26.99 Other pulmonary embolism without acute cor pulmonale; J96.01 Acute respiratory failure with hypoxia; G93.41 Metabolic encephalopathy; I50.23 Acute on chronic systolic (congestive) heart failure; J18.9 Pneumonia, unspecified organism; K55.059 Acute (reversible) ischemia of intestine, part and extent unspecified; N30.01 Acute cystitis with hematuria; I48.20 Chronic atrial fibrillation, unspecified; I42.8 Other cardiomyopathies; N28.0 Ischemia and infarction of kidney; K56.7 Ileus, unspecified; J44.9 Chronic obstructive pulmonary disease, unspecified; I51.3 Intracardiac thrombosis, not elsewhere classified; M54.9 Dorsalgia, unspecified; D73.4 Cyst of spleen; F15.10 Other stimulant abuse, uncomplicated; F12.10 Cannabis abuse, uncomplicated; E11.65 Type 2 diabetes mellitus with hyperglycemia; G47.33 Obstructive sleep apnea (adult) (pediatric); I95.9 Hypotension, unspecified; I11.0 Hypertensive heart disease with heart failure; N20.0 Calculus of kidney; E66.01 Morbid (severe) obesity due to excess calories; Z20.828 Contact with and (suspected) exposure to other viral communicable diseases; Z68.34 Body mass index [BMI] 34.0-34.9, adult; Z79.01 Long term (current) use of anticoagulants; Z79.899 Other long term (current) drug therapy; Z79.84 Long term (current) use of oral hypoglycemic drugs; Z87.891 Personal history of nicotine dependence; Z99.81 Dependence on supplemental oxygen; Z91.19 Patient's noncompliance with other medical treatment and regimen; Z86.718 Personal history of other venous thrombosis and embolism

== ENCOUNTER 2020-03-10 02:09 | Inpatient (IN) | payer OTHER, MEDICAID ==
[~2020-03-10] VITALS: Ht 180.3 cm; Wt 101.2 kg
[~2020-03-10 02:09] MED LIST changes: +ENOXAPARIN100 MG/1 M SUBQ; +FLAGYL500 M1 PO; +JANTOVEN2 MG PO; +LISINOPRIL2.5 MG PO; +SPIRONOLACTONE25 MG PO; +TOPROL XL100 MG PO; +TOPROL XL25 MG PO
[2020-03-10 02:25] VITALS: BP 120/66
[2020-03-10 03:05] LABS: URINE BILIRUBIN NEGATIVE (Negative); URINE BLOOD 3+ (Negative); URINE CLARITY CLEAR; URINE COLOR YELLOW; URINE GLUCOSE-RANDOM 1+ (Negative); URINE KETONES NEGATIVE (Negative); URINE LEUKOCYTES-REFLEX NEGATIVE (Negative); URINE NITRITE-REFLEX NEGATIVE (Negative); URINE PROTEIN 2+ (Negative); URINE SPECIFIC GRAVITY >= 1.030 (1.005-1.030); URINE UROBILINOGEN 0.2 E.U./dl (0.2-1.0)
[2020-03-10 03:12] LABS: BACTERIA-REFLEX >30 Many /HPF (None Seen); MUCUS >6 Heavy strn/LPF (None Seen); SQUAMOUS 0-3 Few /LPF (0-3); URINE WBC-REFLEX 0-5 Rare /HPF (0-5)
[2020-03-10 03:13] LABS: CALCIUM OXALATE 0-3 Few /LPF (None Seen); HYALINE CASTS 0-3 Few /LPF (None Seen)
[2020-03-10 03:14] LABS: AMP/METHAMP Negative (Negative); BARBITURATES Negative (Negative); BENZODIAZEPINES Negative (Negative); COCAINE Negative (Negative); METHADONE Negative (Negative); OPIATES POSITIVE (Negative); PCP Negative (Negative); THC Negative (Negative)
[2020-03-10 03:32] LABS: ABSOLUTE BASOPHILS 0.1 thou/uL (0.0-0.2); ABSOLUTE EOSINOPHILS 0.1 thou/uL (0.0-0.7); ABSOLUTE LYMPHOCYTES 1.6 thou/uL (0.8-5.3); ABSOLUTE NEUTROPHILS 12.7 thou/uL (1.6-8.1); BASOPHILS 0.4 %; EOSINOPHILS 0.9 %; HEMATOCRIT 33.1 % (42.0-52.0); LYMPHOCYTES 10.1 %; MCH 26.2 pg (26.0-34.0); MCHC 33.3 g/dL (28.0-37.0); MCV 78.8 fL (80.0-100.0); MONOCYTES 6.4 %; MPV 7.4 fl. (7.2-11.1); NUCLEATED RBCS 0 /100WBC; PLATELET COUNT* 410 thou/uL (150-400); POLYS 82.2 %; RDW-CV 18.1 % (10.5-14.5); WBC 15.4 thou/uL (4.0-11.0)
[2020-03-10 03:42] LABS: CALCIUM 7.6 mg/dL (8.5-10.1)
[2020-03-10 03:47] LABS: ALBUMIN 1.9 g/dL (3.4-5.0); TOTAL BILIRUBIN 0.3 mg/dL (<0.1-1.0); TOTAL PROTEIN 5.9 g/dL (6.4-8.2)
[2020-03-10 04:02] LABS: INR 1.9; PROTIME 19.5 Seconds (9.20-11.50)
[2020-03-10 12:59] VITALS: BP 120/70
--- NOTE | 2020-03-10 13:06 | EKG ---
[place] [address] ELECTROCARDIOGRAM REPORT Name: YANNJUDAHFRANCISCO L Room: [place] [address] ADM IN [facility]#: [id number] Admission: 03/10/20 Attend Phys: Amee Lyles, Discharge: Date of : 68 Date of Service: 03/10/20 0222 Report #: [id number] THIS REPORT FOR: //name// [facility] ED Test Date: 2020-03-10 Test Time: 02:22:50 Pat Name: FRANCISCO LERNER Department: Room: [place] [address] Gender: M [employer]: [place] : 1970 Requested By: Jazmin Ibanez Order Number: [id number] MD: Jeremy Carr Measurements Intervals [place] Rate: 137 P: [place]: QRS: -38 QRSD: 92 T: 139 QT: 274 QTc: 414 Interpretive Statements Atrial fibrillation Inferior infarct, old Lateral leads are also involved Compared to ECG 02/23/2020 07:59:54 No significant changes Electronically Signed On 03-10-2020 13:06:13 CDT by Jeremy Carr [email or web address] <ELECTRONICALLY SIGNED> By: Jeremy Carr MD, FACC 03/10/20 1306 1 1 Jeremy Carr MD, [facility] /EPI
[2020-03-10 17:04] VITALS: BP 146/75
[2020-03-10 17:45] VITALS: BP 106/70
[2020-03-10 20:00] VITALS: BP 123/68
[2020-03-11] VITALS: BP 99/65
[2020-03-11 04:00] VITALS: BP 108/65
[2020-03-11 04:58] LABS: HEMATOCRIT 33.6 % (42.0-52.0); HEMOGLOBIN 11.2 gm/dL (14.0-18.0); MCH 26.6 pg (26.0-34.0); MCHC 33.3 g/dL (28.0-37.0); MCV 79.8 fL (80.0-100.0); RBC 4.22 mil/uL (4.50-6.00); RDW-CV 18.8 % (10.5-14.5); WBC 12.7 thou/uL (4.0-11.0)
[2020-03-11 05:16] LABS: INR 2.3; PROTIME 23.4 Seconds (9.20-11.50)
[2020-03-11 05:30] LABS: ALBUMIN 1.9 g/dL (3.4-5.0); CALCIUM 7.6 mg/dL (8.5-10.1); MAGNESIUM 1.8 mg/dL (1.8-2.4); POTASSIUM 4.8 mmol/L (3.5-5.1); TOTAL BILIRUBIN 0.3 mg/dL (<0.1-1.0); TOTAL PROTEIN 5.5 g/dL (6.4-8.2); TROPONIN-I LEVEL 0.1 ng/mL (<0.06)
[2020-03-11 08:00] VITALS: BP 110/60
[2020-03-11 11:00] VITALS: BP 110/62
[2020-03-11 16:02] VITALS: BP 105/61
[2020-03-11 20:00] VITALS: BP 105/57
[2020-03-12] VITALS: BP 132/66
[2020-03-12 04:00] VITALS: BP 114/62
[2020-03-12 08:00] VITALS: BP 119/68
[2020-03-12 12:33] VITALS: BP 128/62
[2020-03-12 13:42] LABS: PROTIME 61.4 Seconds (9.20-11.50)
[2020-03-12 13:46] LABS: INR 6.5
[2020-03-12 13:53] LABS: GLUCOSE 150 mg/dL (70-99); TROPONIN-I LEVEL <0.06 ng/mL (<0.06)
[2020-03-12 17:02] LABS: PROTIME 64.2 Seconds (9.20-11.50)
[2020-03-12 17:07] LABS: INR 6.8
[2020-03-12 17:43] VITALS: BP 119/65
[2020-03-12 20:00] VITALS: BP 113/59
[2020-03-13] VITALS: BP 112/71
[2020-03-13 02:54] LABS: PROTIME 61.6 Seconds (9.20-11.50)
[2020-03-13 02:59] LABS: INR 6.5
[2020-03-13 04:00] VITALS: BP 124/68
[2020-03-13 08:00] VITALS: BP 116/66
[2020-03-13 12:00] VITALS: BP 103/75
[2020-03-13 12:10] LABS: ABSOLUTE EOSINOPHILS 0.1 thou/uL (0.0-0.7); ABSOLUTE LYMPHOCYTES 1.4 thou/uL (0.8-5.3); ABSOLUTE MONOCYTES 0.8 thou/uL (0.0-1.2); ABSOLUTE NEUTROPHILS 8.6 thou/uL (1.6-8.1); BASOPHILS 0.4 %; EOSINOPHILS 0.8 %; HEMATOCRIT 30.7 % (42.0-52.0); HEMOGLOBIN 10.3 gm/dL (14.0-18.0); LYMPHOCYTES 12.8 %; MCH 26.7 pg (26.0-34.0); MCHC 33.4 g/dL (28.0-37.0); MPV 7.2 fl. (7.2-11.1); NUCLEATED RBCS 0 /100WBC; PLATELET COUNT* 379 thou/uL (150-400); RBC 3.84 mil/uL (4.50-6.00); RDW-CV 19.4 % (10.5-14.5); WBC 10.9 thou/uL (4.0-11.0)
[2020-03-13 12:18] LABS: PROTIME 48.2 Seconds (9.20-11.50)
[2020-03-13 12:26] LABS: ALBUMIN 1.8 g/dL (3.4-5.0); CALCIUM 7.6 mg/dL (8.5-10.1); CREATININE 0.8 mg/dL (0.6-1.3); POTASSIUM 3.9 mmol/L (3.5-5.1); TOTAL BILIRUBIN 0.2 mg/dL (<0.1-1.0); TOTAL PROTEIN 5.3 g/dL (6.4-8.2)
[2020-03-13 16:00] VITALS: BP 93/63
[2020-03-13 20:00] VITALS: BP 113/54
[2020-03-14 01:00] VITALS: BP 107/64
[2020-03-14 04:00] VITALS: BP 113/67
[2020-03-14 08:00] VITALS: BP 107/64
[2020-03-14 12:48] LABS: HEMATOCRIT 29.8 % (42.0-52.0); HEMOGLOBIN 9.9 gm/dL (14.0-18.0); MCH 26.5 pg (26.0-34.0); MCHC 33.2 g/dL (28.0-37.0); MCV 79.8 fL (80.0-100.0); MPV 7.3 fl. (7.2-11.1); NUCLEATED RBCS 0 /100WBC; PLATELET COUNT* 365 thou/uL (150-400); RBC 3.74 mil/uL (4.50-6.00); RDW-CV 19.3 % (10.5-14.5)
[2020-03-14 13:05] LABS: PROTIME 30.2 Seconds (9.20-11.50)
[2020-03-14 13:06] LABS: INR 3.1
[2020-03-14 13:10] LABS: ALBUMIN 1.8 g/dL (3.4-5.0); TOTAL BILIRUBIN 0.2 mg/dL (<0.1-1.0); TOTAL PROTEIN 5.6 g/dL (6.4-8.2)
[2020-03-14 13:24] LABS: ABSOLUTE MONOCYTES 0.4 thou/uL (0.0-1.2); ABSOLUTE NEUTROPHILS 12.6 thou/uL (1.6-8.1)
[2020-03-14 13:25] LABS: PLATELET ESTIMATE ADEQUATE
[2020-03-14 13:31] LABS: % SATURATION 10 % (20-39); IRON 30 ug/dL (50-175)
[2020-03-14 14:48] VITALS: BP 104/56
[2020-03-14 16:00] VITALS: BP 113/64
[2020-03-14 21:34] VITALS: BP 129/65
[2020-03-15 00:17] VITALS: BP 107/65
[2020-03-15 04:33] VITALS: BP 110/67
[2020-03-15 08:00] VITALS: BP 102/71
[2020-03-15] MEDS ORDERED: GABAPENTIN 100100 MG PO (09:48)
[2020-03-15] MEDS ORDERED: HYDROCODON-ACE1 EAC7 PO (09:48)
[2020-03-15] MEDS ORDERED: PREDNISONE 10 M10 MG PO (09:48)
[2020-03-15] MEDS ORDERED: AUGMENTIN 875-1 EACH PO (09:48)
[2020-03-15] MEDS ORDERED: CARDIZEM CD120 MG PO (09:48)
[2020-03-15 12:42] VITALS: BP 102/71
[2020-03-15 13:23] VITALS: BP 102/71
== END 2020-03-15 14:45 | disposition home health service (06) | DRG 689 ==
LOC: M.ERS 02:09 → M.TBA-ER 06:21 → M.ERS 06:21 → M.2W 08:45 → M.TBA-ER 08:45 → M.2W 08:45
PROVIDERS: Emergency Medicine; Internal Medicine; Registered Nurse; ADMIT Internal Medicine; ATTEND Internal Medicine
PROC: 5A09357 Assistance with Respiratory Ventilation, Less than 24 Consecutive Hours, Continuous Positive Airway Pressure (ICD-10-PCS; principal; 2020-03-10)
PROC: 5A09357 Assistance with Respiratory Ventilation, Less than 24 Consecutive Hours, Continuous Positive Airway Pressure (ICD-10-PCS; 2020-03-14)
DX: N10 Acute pyelonephritis (principal); E43 Unspecified severe protein-calorie malnutrition; J44.1 Chronic obstructive pulmonary disease with (acute) exacerbation; R65.10 Systemic inflammatory response syndrome (SIRS) of non-infectious origin without acute organ dysfunction; I48.20 Chronic atrial fibrillation, unspecified; N28.0 Ischemia and infarction of kidney; I42.8 Other cardiomyopathies; D68.59 Other primary thrombophilia; I11.0 Hypertensive heart disease with heart failure; I51.3 Intracardiac thrombosis, not elsewhere classified; G89.29 Other chronic pain; I50.9 Heart failure, unspecified; F15.11 Other stimulant abuse, in remission; D50.9 Iron deficiency anemia, unspecified; G47.33 Obstructive sleep apnea (adult) (pediatric); M54.9 Dorsalgia, unspecified; Z20.828 Contact with and (suspected) exposure to other viral communicable diseases; Z79.84 Long term (current) use of oral hypoglycemic drugs; Z79.899 Other long term (current) drug therapy; Z79.01 Long term (current) use of anticoagulants; Z87.891 Personal history of nicotine dependence; Z86.711 Personal history of pulmonary embolism; Z87.01 Personal history of pneumonia (recurrent); Z68.31 Body mass index [BMI] 31.0-31.9, adult; B96.89 Other specified bacterial agents as the cause of diseases classified elsewhere

== ENCOUNTER → 2020-03-18 | Outpatient (CLI) | payer OTHER, MEDICAID ==
[~2020-03-18] MED LIST changes: +CARDIZEM CD120 MG PO; +GABAPENTIN 100100 MG PO; +HYDROCODON-ACE1 EAC7 PO
[2020-03-18 11:33] LABS: INR 2.9; PROTIME 28.2 Seconds (9.20-11.50)
== END ==
LOC: M.LAB 10:58
PROVIDERS: ATTEND Nurse Practitioner
DX: I11.0 Hypertensive heart disease with heart failure (principal); I48.21 Permanent atrial fibrillation; I42.0 Dilated cardiomyopathy; F15.10 Other stimulant abuse, uncomplicated; J44.9 Chronic obstructive pulmonary disease, unspecified; I51.3 Intracardiac thrombosis, not elsewhere classified; D73.5 Infarction of spleen; N28.0 Ischemia and infarction of kidney; I50.22 Chronic systolic (congestive) heart failure; Z79.899 Other long term (current) drug therapy; Z79.01 Long term (current) use of anticoagulants